=== PATIENT | male | born 1950 | race Caucasian/White ===

== ENCOUNTER 2023-06-29 14:20 | Outpatient (AMB) | payer MEDICARE, OTHER, SELFPAY ==
--- NOTE | 2023-06-29 14:33 | HO.NEPHOV ---
HPI HPI Comments History of Present Illness Details I had the privilege of seeing Mr. Enriquez in follow-up of his diabetic nephropathy. He has chronic kidney disease. He had been doing well after his CABG. His blood sugar control has been fair. His blood pressure is better controlled. His serum creatinine had been fairly stable. He is on Farxiga. His psoriasis is under good control. He exercises daily. He denies chest pain, shortness of breath, nausea vomiting, diarrhea, urinary symptoms, pedal edema or orthostatic symptoms. He has not had any medication changes lately. [facility] Medical History (Updated 07/13/23 @ 21:32 by Praneeth Whipple MD) Secondary hyperparathyroidism Vitamin D deficiency Metabolic acidosis Proteinuria Diabetes mellitus with nephropathy Essential (primary) hypertension Chronic kidney disease Surgical History (Updated 06/29/23 @ 14:46 by Joan Breen MA) Hx of CABG Family History (Updated 06/29/23 @ 14:47 by Joan Breen MA) Maternal Grandmother Heart disease Social History (Updated 06/29/23 @ 14:47 by Joan Breen MA) Alcohol intake: current Patient Tobacco Use Status: Never used Tobacco Vital Signs 06/29/23 14:48 Height 5 ft 6 in Weight 232 lb 4 oz BMI 37.5 BP 124/80 Blood Pressure Location Rt brachial Position Sitting Pulse 61 Pulse Source Pulse Oximeter Physical Exam Vital Signs: Last Vital Signs Pulse 61 06/29/23 14:48 BP 124/80 06/29/23 14:48 BMI result Body Mass Index 37.5 Const General: comfortable and no acute distress Orientation/consciousness: patient oriented x3 HEENT Head: Yes normocephalic Mouth: Normal oral and palatal mucosa present Eyes EOM: EOMs intact bilaterally Neck Neck: Yes supple Resp Auscultation: clear to auscultation bilaterally Cardio Jugular venous distension: no JVD Rate: regular rate GI Palpation (GI): Soft to palpation Auscultation: normal bowel sounds General: Yes no CVA tenderness Back/Spine/Pelvis Back: no CVA tenderness Skin General skin exam: no rashes or lesions noted Neuro General: patient oriented x3 and moves all extremities Extrem General: Yes no pedal edema Assessment & Plan Assessment & Plan (1) CKD (chronic kidney disease) stage 4, GFR 15-29 ml/min: Code(s): N18.4 - Chronic kidney disease, stage 4 (severe) (2) Metabolic acidosis: Code(s): E87.20 - Acidosis, unspecified (3) Proteinuria: Code(s): R80.9 - Proteinuria, unspecified Qualifiers: Proteinuria type: persistent Qualified Code(s): R80.1 - Persistent proteinuria, unspecified (4) Diabetes mellitus with nephropathy: Code(s): E11.21 - Type 2 diabetes mellitus with diabetic nephropathy Plan Stephan has diabetic nephropathy. His renal functions are stable. He needs to lose weight. His blood pressure is well controlled at home. He needs to keep up with a low-sodium diet. He is to continue current dose of sodium bicarbonate. He is on lisinopril as well as Farxiga. His serum potassium is normal. He needs a sleep study. He is on vitamin-D as well. He avoids nonsteroidal anti-inflammatories and maintain good hydration. I did not make any medication changes today. Follow-up lab work ordered. Answered all questions. Follow-up given. Orders: Orders Creatinine 06/29/23 N18.4 - Chronic kidney disease, stage 4 (severe), E87.20 - Acidosis, unspecified, R80.9 - Proteinuria, unspecified, E11.21 - Type 2 diabetes mellitus with diabetic nephropathy Blood Urea Nitrogen 06/29/23 N18.4 - Chronic kidney disease, stage 4 (severe), E87.20 - Acidosis, unspecified, R80.9 - Proteinuria, unspecified, E11.21 - Type 2 diabetes mellitus with diabetic nephropathy Electrolytes 06/29/23 N18.4 - Chronic kidney disease, stage 4 (severe), E87.20 - Acidosis, unspecified, R80.9 - Proteinuria, unspecified, E11.21 - Type 2 diabetes mellitus with diabetic nephropathy Phosphorus 06/29/23 N18.4 - Chronic kidney disease, stage 4 (severe), E87.20 - Acidosis, unspecified, R80.9 - Proteinuria, unspecified, E11.21 - Type 2 diabetes mellitus with diabetic nephropathy Complete Blood Count Man Dif 06/29/23 N18.4 - Chronic kidney disease, stage 4 (severe), E87.20 - Acidosis, unspecified, R80.9 - Proteinuria, unspecified, E11.21 - Type 2 diabetes mellitus with diabetic nephropathy Calcium 06/29/23 N18.4 - Chronic kidney disease, stage 4 (severe), E87.20 - Acidosis, unspecified, R80.9 - Proteinuria, unspecified, E11.21 - Type 2 diabetes mellitus with diabetic nephropathy Parathyroid Hormone Intact 06/29/23 N18.4 - Chronic kidney disease, stage 4 (severe), E87.20 - Acidosis, unspecified, R80.9 - Proteinuria, unspecified, E11.21 - Type 2 diabetes mellitus with diabetic nephropathy Vitamin D 25-OH Total 06/29/23 N18.4 - Chronic kidney disease, stage 4 (severe), E87.20 - Acidosis, unspecified, R80.9 - Proteinuria, unspecified, E11.21 - Type 2 diabetes mellitus with diabetic nephropathy Protein Creatinine Ratio, Ur 06/29/23 N18.4 - Chronic kidney disease, stage 4 (severe), E87.20 - Acidosis, unspecified, R80.9 - Proteinuria, unspecified, E11.21 - Type 2 diabetes mellitus with diabetic nephropathy Coding Level of Care Code Est Pt Level 4 (24146) Diagnoses CKD (chronic kidney disease) stage 4, GFR 15-29 ml/min N18.4 Metabolic acidosis E87.20 Persistent proteinuria R80.1 Proteinuria type: persistent Diabetes mellitus with nephropathy E11.21 Results Reviewed Nephrology Results: No Data to Display
[2023-06-29 14:48] VITALS: BP 124/80; PULSE 61; BMI 37.5
== END 2023-06-29 15:31 | disposition home or self-care (01) ==
PROVIDERS: PCP Hospitalist; Visit Provider Internal Medicine Nephrology
DX: N18.4 Chronic kidney disease, stage 4 (severe) (principal); E87.20 Acidosis, unspecified; R80.1 Persistent proteinuria, unspecified; E11.21 Type 2 diabetes mellitus with diabetic nephropathy
CPT/HCPCS: 99214

== ENCOUNTER → 2023-06-29 14:20 | Outpatient (BNVA) | payer MEDICARE, SELFPAY | PROVIDERS: PCP Hospitalist; Visit Provider Internal Medicine Nephrology | DX: E11.22 Type 2 diabetes mellitus with diabetic chronic kidney disease (principal); N18.4 Chronic kidney disease, stage 4 (severe); E11.21 Type 2 diabetes mellitus with diabetic nephropathy; E87.20 Acidosis, unspecified; R80.1 Persistent proteinuria, unspecified | CPT/HCPCS: 99212 ==

== ENCOUNTER 2023-10-13 15:39 | Outpatient (AMB) | payer MEDICARE, OTHER, SELFPAY ==
--- NOTE | 2023-10-13 15:47 | HO.NEPHOV_ITS ---
HPI HPI Comments History of Present Illness Details I had the privilege of seeing Mr. Enriquez in follow-up of his diabetic nephropathy. He has chronic kidney disease. He had been doing well after his CABG. His blood sugar control has been fair. His blood pressure is better controlled. His serum creatinine had been fairly stable. He is on Farxiga. His psoriasis is under good control. He exercises daily. He denies chest pain, shortness of breath, nausea vomiting, diarrhea, urinary symptoms, pedal edema or orthostatic symptoms. He has not had any medication changes lately. [facility] Medical History (Updated 07/13/23 @ 21:32 by Praneeth Whipple MD) Secondary hyperparathyroidism Vitamin D deficiency Metabolic acidosis Proteinuria Diabetes mellitus with nephropathy Essential (primary) hypertension Chronic kidney disease Surgical History Hx of CABG Family History Maternal Grandmother Heart disease Social History Alcohol intake: current Patient Tobacco Use Status: Never used Tobacco Vital Signs 10/13/23 15:48 Height 5 ft 6 in Weight 235 lb BMI 37.9 BP 130/70 Blood Pressure Location Lt brachial Position Sitting Pulse 59 Pulse Source Pulse Oximeter Pulse Oximetry (%) 98 Oxygen Delivery Method Room Air Physical Exam Vital Signs: Last Vital Signs Pulse 59 10/13/23 15:48 BP 130/70 10/13/23 15:48 Pulse Ox 98 10/13/23 15:48 Oxygen Delivery Method Room Air 10/13/23 15:48 BMI result Body Mass Index 37.9 Const General: comfortable and no acute distress Orientation/consciousness: patient oriented x3 HEENT Head: Yes normocephalic Mouth: Normal oral and palatal mucosa present Eyes EOM: EOMs intact bilaterally Neck Neck: Yes supple Resp Auscultation: clear to auscultation bilaterally Cardio Jugular venous distension: no JVD Rate: regular rate GI Palpation (GI): Soft to palpation Auscultation: normal bowel sounds General: Yes no CVA tenderness Back/Spine/Pelvis Back: no CVA tenderness Skin General skin exam: no rashes or lesions noted Neuro General: patient oriented x3 and moves all extremities Extrem General: Yes no pedal edema Assessment & Plan Assessment & Plan (1) CKD (chronic kidney disease) stage 4, GFR 15-29 ml/min: Code(s): N18.4 - Chronic kidney disease, stage 4 (severe) (2) Metabolic acidosis: Code(s): E87.20 - Acidosis, unspecified (3) Proteinuria: Code(s): R80.9 - Proteinuria, unspecified Qualifiers: Proteinuria type: persistent Qualified Code(s): R80.1 - Persistent proteinuria, unspecified (4) Diabetes mellitus with nephropathy: Code(s): E11.21 - Type 2 diabetes mellitus with diabetic nephropathy Plan Stephan has diabetic nephropathy. His renal functions had been stable. He needs to lose weight. His blood pressure is well controlled at home. He needs to keep up with a low-sodium diet. I increased his sodium bicarbonate to 1300 mg bid. He is on lisinopril as well as Farxiga. His serum potassium is high normal, likely from metabolic acidosis. He needs a sleep study. I started him on Vitamin D 19068 U once a week. He avoids nonsteroidal anti-inflammatories and maintain good hydration. I did not make any other medication changes today. Follow-up lab work ordered. Answered all questions. Follow-up given. Orders: Orders Blood Urea Nitrogen Today E11.21 - Type 2 diabetes mellitus with diabetic nephropathy, E87.20 - Acidosis, unspecified, N18.4 - Chronic kidney disease, stage 4 (severe), R80.9 - Proteinuria, unspecified Electrolytes Today E11.21 - Type 2 diabetes mellitus with diabetic nephropathy, E87.20 - Acidosis, unspecified, N18.4 - Chronic kidney disease, stage 4 (severe), R80.9 - Proteinuria, unspecified Calcium Today E11.21 - Type 2 diabetes mellitus with diabetic nephropathy, E87.20 - Acidosis, unspecified, N18.4 - Chronic kidney disease, stage 4 (severe), R80.9 - Proteinuria, unspecified Creatinine Today E11.21 - Type 2 diabetes mellitus with diabetic nephropathy, E87.20 - Acidosis, unspecified, N18.4 - Chronic kidney disease, stage 4 (severe), R80.9 - Proteinuria, unspecified Medications: New cholecalciferol (vitamin D3) 1,250 mcg PO QWEEK 13 caps 1RF 90 days Changed From sodium bicarbonate 1,300 mg PO BID To sodium bicarbonate 1,300 mg (2 x 650 mg) PO BID 30 days 120 tabs 12RF Coding Level of Care Code Est Pt Level 4 (63124) Diagnoses CKD (chronic kidney disease) stage 4, GFR 15-29 ml/min N18.4 Metabolic acidosis E87.20 Persistent proteinuria R80.1 Proteinuria type: persistent Diabetes mellitus with nephropathy E11.21 Results Reviewed Nephrology Results: No Data to Display
[2023-10-13 15:48] VITALS: BP 130/70; PULSE 59; O2SAT 98; BMI 37.9
== END 2023-10-13 16:31 | disposition home or self-care (01) ==
PROVIDERS: PCP Hospitalist; Visit Provider Internal Medicine Nephrology
DX: N18.4 Chronic kidney disease, stage 4 (severe) (principal); E87.20 Acidosis, unspecified; R80.1 Persistent proteinuria, unspecified; E11.21 Type 2 diabetes mellitus with diabetic nephropathy
CPT/HCPCS: 99214

== ENCOUNTER → 2023-10-13 15:39 | Outpatient (BNVA) | payer MEDICARE, OTHER, SELFPAY | PROVIDERS: PCP Hospitalist; Visit Provider Internal Medicine Nephrology | DX: E11.21 Type 2 diabetes mellitus with diabetic nephropathy (principal); E11.22 Type 2 diabetes mellitus with diabetic chronic kidney disease; I12.9 Hypertensive chronic kidney disease with stage 1 through stage 4 chronic kidney disease, or unspecified chronic kidney disease; N18.4 Chronic kidney disease, stage 4 (severe); E87.20 Acidosis, unspecified; R80.9 Proteinuria, unspecified | CPT/HCPCS: 99212 ==

== ENCOUNTER 2024-01-12 14:33 | Outpatient (AMB) | payer MEDICARE, OTHER, SELFPAY ==
--- NOTE | 2024-01-12 14:39 | HO.NEPHOV ---
Vital Signs 01/12/24 15:08 Height 5 ft 6 in BP 130/60 Blood Pressure Location Rt brachial Position Sitting Pulse 55 Pulse Source Pulse Oximeter Pulse Oximetry (%) 96 Oxygen Delivery Method Room Air Intake Visit Reasons: 3 mon follow up/ Conf Gun Number Required: No Accompanied by: Self / Same As Patient Allergies No Known Allergies Allergy (Verified 01/12/24 15:10) HPI Comments Details: I had the privilege of seeing Mr. Enriquez in follow-up of his diabetic nephropathy. He has chronic kidney disease. He had been doing well after his CABG. His blood sugar control has been fair. His blood pressure is better controlled. His serum creatinine had been fairly stable. He is on Farxiga. His psoriasis is under good control. He denies chest pain, shortness of breath, nausea vomiting, diarrhea, urinary symptoms, pedal edema or orthostatic symptoms. He has not had any medication changes lately. [facility] Medical History (Updated 07/13/23 @ 21:32 by Praneeth Whipple MD) Secondary hyperparathyroidism Vitamin D deficiency Metabolic acidosis Proteinuria Diabetes mellitus with nephropathy Essential (primary) hypertension Chronic kidney disease Surgical History Hx of CABG Family History Maternal Grandmother Heart disease Social History Alcohol intake: current Patient Tobacco Use Status: Never used Tobacco Physical Exam Vital Signs: Last Vital Signs Pulse 55 01/12/24 15:08 BP 140/74 H 01/12/24 15:08 Pulse Ox 96 01/12/24 15:08 Oxygen Delivery Method Room Air 01/12/24 15:08 Const General: comfortable and no acute distress Orientation/consciousness: patient oriented x3 HEENT Head: Yes normocephalic Mouth: Normal oral and palatal mucosa present Eyes EOM: EOMs intact bilaterally Neck Neck: Yes supple Resp Auscultation: clear to auscultation bilaterally Cardio Jugular venous distension: no JVD Rate: regular rate GI Palpation (GI): Soft to palpation Auscultation: normal bowel sounds General: Yes no CVA tenderness Back/Spine/Pelvis Back: no CVA tenderness Skin General skin exam: no rashes or lesions noted Neuro General: patient oriented x3 and moves all extremities Extrem General: Yes no pedal edema Results Reviewed Nephrology Results: No Data to Display Assessment & Plan Assessment & Plan (1) Diabetes mellitus with nephropathy: Code(s): E11.21 - Type 2 diabetes mellitus with diabetic nephropathy Category: Medical (2) Proteinuria: Code(s): R80.9 - Proteinuria, unspecified Category: Medical Qualifiers: Proteinuria type: persistent Qualified Code(s): R80.1 - Persistent proteinuria, unspecified (3) Metabolic acidosis: Code(s): E87.20 - Acidosis, unspecified Category: Medical (4) CKD (chronic kidney disease) stage 4, GFR 15-29 ml/min: Code(s): N18.4 - Chronic kidney disease, stage 4 (severe) Category: Medical Plan Stephan has diabetic nephropathy. He needs to lose weight. His blood pressure is well controlled at home. He needs to keep up with a low-sodium diet. I increased his sodium bicarbonate to 1300 mg bid. He is on lisinopril as well as Farxiga. His serum potassium is high normal, likely from metabolic acidosis. He needs a sleep study. He is on Vitamin D 50035 U once a week. He avoids nonsteroidal anti-inflammatories and maintain good hydration. I did not make any other medication changes today. Follow-up lab work ordered. Answered all questions. Follow-up given. Orders: Orders Creatinine Today E11.21 - Type 2 diabetes mellitus with diabetic nephropathy, E87.20 - Acidosis, unspecified, N18.4 - Chronic kidney disease, stage 4 (severe), R80.1 - Persistent proteinuria, unspecified Blood Urea Nitrogen Today E11.21 - Type 2 diabetes mellitus with diabetic nephropathy, E87.20 - Acidosis, unspecified, N18.4 - Chronic kidney disease, stage 4 (severe), R80.1 - Persistent proteinuria, unspecified Electrolytes Today E11.21 - Type 2 diabetes mellitus with diabetic nephropathy, E87.20 - Acidosis, unspecified, N18.4 - Chronic kidney disease, stage 4 (severe), R80.1 - Persistent proteinuria, unspecified Coding Level of Care Code Est Pt Level 4 (84215) Diagnoses Diabetes mellitus with nephropathy E11.21 Persistent proteinuria R80.1 Proteinuria type: persistent Metabolic acidosis E87.20 CKD (chronic kidney disease) stage 4, GFR 15-29 ml/min N18.4
[2024-01-12 15:08] VITALS: BP 130/60; PULSE 55; O2SAT 96
== END 2024-01-12 15:46 | disposition home or self-care (01) ==
PROVIDERS: PCP Hospitalist; Visit Provider Internal Medicine Nephrology
DX: E11.21 Type 2 diabetes mellitus with diabetic nephropathy (principal); R80.1 Persistent proteinuria, unspecified; E87.20 Acidosis, unspecified; N18.4 Chronic kidney disease, stage 4 (severe)
CPT/HCPCS: 99214

== ENCOUNTER → 2024-01-12 14:33 | Outpatient (BNVA) | payer MEDICARE, OTHER, SELFPAY | PROVIDERS: PCP Hospitalist; Visit Provider Internal Medicine Nephrology | DX: E11.21 Type 2 diabetes mellitus with diabetic nephropathy (principal); R80.1 Persistent proteinuria, unspecified; E87.20 Acidosis, unspecified; E11.22 Type 2 diabetes mellitus with diabetic chronic kidney disease; N18.4 Chronic kidney disease, stage 4 (severe); Z79.899 Other long term (current) drug therapy | CPT/HCPCS: 99212 ==

== ENCOUNTER 2024-04-07 15:06 | Outpatient (AMB) | payer MEDICARE, OTHER, SELFPAY ==
[2024-04-07 15:35] VITALS: BP 140/70; PULSE 61; O2SAT 96; BMI 37.8
--- NOTE | 2024-04-07 15:35 | HO.NEPHOV_ITS ---
Vital Signs 04/07/24 15:35 Height 5 ft 6 in Weight 234 lb 4 oz BMI 37.8 BP 140/70 H Blood Pressure Location Rt brachial Position Sitting Pulse 61 Pulse Source Pulse Oximeter Pulse Oximetry (%) 96 Oxygen Delivery Method Room Air Intake Visit Reasons: 3mon follow up- Conf Outside Food Server Required: No Accompanied by: Self / Same As Patient Allergies No Known Allergies Allergy (Verified 04/07/24 15:37) HPI Comments Details: I had the privilege of seeing Mr. Enriquez in follow-up of his diabetic nephropathy. He has chronic kidney disease. He had been doing well after his CABG. His blood sugar control has been fair. His blood pressure is better controlled. His serum creatinine had been fairly stable. He is on Farxiga. His psoriasis is under good control. He denies chest pain, shortness of breath, nausea vomiting, diarrhea, urinary symptoms, pedal edema or orthostatic symptoms. [facility] Medical History (Updated 07/13/23 @ 21:32 by Praneeth Whipple MD) Secondary hyperparathyroidism Vitamin D deficiency Metabolic acidosis Proteinuria Diabetes mellitus with nephropathy Essential (primary) hypertension Chronic kidney disease Surgical History Hx of CABG Family History Maternal Grandmother Heart disease Social History Alcohol intake: current Patient Tobacco Use Status: Never used Tobacco Review of Systems Const All systems reviewed & are unremarkable except as noted in HPI and below Physical Exam Vital Signs: Last Vital Signs Pulse 61 04/07/24 15:35 BP 140/70 H 04/07/24 15:35 Pulse Ox 96 04/07/24 15:35 Oxygen Delivery Method Room Air 04/07/24 15:35 BMI result Body Mass Index 37.8 Const General: comfortable and no acute distress Orientation/consciousness: patient oriented x3 HEENT Head: Yes normocephalic Mouth: Normal oral and palatal mucosa present Eyes EOM: EOMs intact bilaterally Neck Neck: Yes supple Resp Auscultation: clear to auscultation bilaterally Cardio Jugular venous distension: no JVD Rate: regular rate GI Palpation (GI): Soft to palpation Auscultation: normal bowel sounds General: Yes no CVA tenderness Back/Spine/Pelvis Back: no CVA tenderness Skin General skin exam: no rashes or lesions noted Neuro General: patient oriented x3 and moves all extremities Extrem General: Yes no pedal edema Results Reviewed Nephrology Results: No Data to Display Assessment & Plan Assessment & Plan (1) CKD (chronic kidney disease) stage 4, GFR 15-29 ml/min: Code(s): N18.4 - Chronic kidney disease, stage 4 (severe) Category: Medical (2) Metabolic acidosis: Code(s): E87.20 - Acidosis, unspecified Category: Medical (3) Proteinuria: Code(s): R80.9 - Proteinuria, unspecified Category: Medical Qualifiers: Proteinuria type: persistent Qualified Code(s): R80.1 - Persistent proteinuria, unspecified (4) Diabetes mellitus with nephropathy: Code(s): E11.21 - Type 2 diabetes mellitus with diabetic nephropathy Category: Medical Plan Stephan has diabetic nephropathy. He needs to lose weight. His blood pressure is well controlled at home. He needs to keep up with a low-sodium diet. I increased his sodium bicarbonate to 1300 mg bid. He is on lisinopril as well as Farxiga. His serum potassium is high normal, likely from metabolic acidosis. He needs a sleep study. He is on Vitamin D 11539 U once a week. He avoids n onsteroidal anti-inflammatories and maintain good hydration. I did not make any other medication changes today. He will benefit from PFT's given his SOBE. Follow-up lab work ordered. Answered all questions. Follow-up given. Orders: Orders Creatinine 3 Months E11.21 - Type 2 diabetes mellitus with diabetic nephropathy, E87.20 - Acidosis, unspecified, N18.4 - Chronic kidney disease, stage 4 (severe), R80.1 - Persistent proteinuria, unspecified Blood Urea Nitrogen 3 Months E11.21 - Type 2 diabetes mellitus with diabetic nephropathy, E87.20 - Acidosis, unspecified, N18.4 - Chronic kidney disease, stage 4 (severe), R80.1 - Persistent proteinuria, unspecified Electrolytes 3 Months E11.21 - Type 2 diabetes mellitus with diabetic nephropathy, E87.20 - Acidosis, unspecified, N18.4 - Chronic kidney disease, stage 4 (severe), R80.1 - Persistent proteinuria, unspecified Vitamin D 25-OH Total 3 Months E11.21 - Type 2 diabetes mellitus with diabetic nephropathy, E87.20 - Acidosis, unspecified, N18.4 - Chronic kidney disease, stage 4 (severe), R80.1 - Persistent proteinuria, unspecified Parathyroid Hormone Intact 3 Months E11.21 - Type 2 diabetes mellitus with diabetic nephropathy, E87.20 - Acidosis, unspecified, N18.4 - Chronic kidney disease, stage 4 (severe), R80.1 - Persistent proteinuria, unspecified Calcium 3 Months E11. - Type 2 diabetes mellitus with diabetic nephropathy, E87.20 - Acidosis, unspecified, N18.4 - Chronic kidney disease, stage 4 (severe), R80.1 - Persistent proteinuria, unspecified Complete Blood Count Auto Diff 3 Months E11.21 - Type 2 diabetes mellitus with diabetic nephropathy, E87.20 - Acidosis, unspecified, N18.4 - Chronic kidney disease, stage 4 (severe), R80.1 - Persistent proteinuria, unspecified Coding Level of Care Code Est Pt Level 4 (18065) Diagnoses CKD (chronic kidney disease) stage 4, GFR 15-29 ml/min N18.4 Metabolic acidosis E87.20 Persistent proteinuria R80.1 Proteinuria type: persistent Diabetes mellitus with nephropathy
== END 2024-04-07 16:02 | disposition home or self-care (01) ==
PROVIDERS: PCP Hospitalist; Visit Provider Internal Medicine Nephrology
DX: N18.4 Chronic kidney disease, stage 4 (severe) (principal); E87.20 Acidosis, unspecified; R80.1 Persistent proteinuria, unspecified; E11.21 Type 2 diabetes mellitus with diabetic nephropathy
CPT/HCPCS: 99214

== ENCOUNTER → 2024-04-07 15:06 | Outpatient (BNVA) | payer MEDICARE, OTHER, SELFPAY | PROVIDERS: PCP Hospitalist; Visit Provider Internal Medicine Nephrology | DX: E11.21 Type 2 diabetes mellitus with diabetic nephropathy (principal); N18.4 Chronic kidney disease, stage 4 (severe); E87.20 Acidosis, unspecified; R80.1 Persistent proteinuria, unspecified | CPT/HCPCS: 99212 ==

== ENCOUNTER 2024-07-07 14:17 | Outpatient (AMB) | payer MEDICARE, OTHER, SELFPAY ==
--- NOTE | 2024-07-07 14:53 | HO.NEPHOV ---
Vital Signs 07/07/24 14:56 Height 5 ft 6 in Weight 240 lb 4 oz BMI 38.8 BP 130/72 Blood Pressure Location Lt brachial Position Sitting Pulse 47 L Pulse Source Pulse Oximeter Pulse Oximetry (%) 98 Oxygen Delivery Method Room Air Intake Visit Reasons: 3 mon follow up-Conf Medication Coordinator Required: No Accompanied by: Self / Same As Patient Allergies No Known Allergies Allergy (Verified 07/07/24 14:56) HPI Comments Details: Mr. Enriquez was seen in follow-up of his diabetic nephropathy. He has chronic kidney disease. He had been doing well after his CABG. His blood sugar control has been fair. His blood pressure is better controlled. His serum creatinine had been fairly stable. He is on Farxiga. His psoriasis is under good control. He denies chest pain, shortness of breath, nausea vomiting, diarrhea, urinary symptoms, pedal edema or orthostatic symptoms. [facility] Medical History (Updated 07/07/24 @ 20:04 by Praneeth Whipple MD) Secondary hyperparathyroidism Vitamin D deficiency Metabolic acidosis Proteinuria Diabetes mellitus with nephropathy Essential (primary) hypertension Chronic kidney disease Surgical History Hx of CABG Family History Maternal Grandmother Heart disease Social History Alcohol intake: current Patient Tobacco Use Status: Never used Tobacco Review of Systems Const All systems reviewed & are unremarkable except as noted in HPI and below Physical Exam Vital Signs: Last Vital Signs Pulse 47 L 07/07/24 14:56 BP 130/72 07/07/24 14:56 Pulse Ox 98 07/07/24 14:56 Oxygen Delivery Method Room Air 07/07/24 14:56 BMI result Body Mass Index 38.8 Const General: comfortable and no acute distress Orientation/consciousness: patient oriented x3 HEENT Head: Yes normocephalic Mouth: Normal oral and palatal mucosa present Eyes EOM: EOMs intact bilaterally Neck Neck: Yes supple Resp Auscultation: clear to auscultation bilaterally Cardio Jugular venous distension: no JVD Rate: regular rate GI Palpation (GI): Soft to palpation Auscultation: normal bowel sounds General: Yes no CVA tenderness Back/Spine/Pelvis Back: no CVA tenderness Skin General skin exam: no rashes or lesions noted Neuro General: patient oriented x3 and moves all extremities Extrem General: Yes no pedal edema Results Reviewed Nephrology Results: No Data to Display Assessment & Plan Assessment & Plan (1) CKD (chronic kidney disease) stage 4, GFR 15-29 ml/min: Code(s): N18.4 - Chronic kidney disease, stage 4 (severe) Category: Medical (2) Metabolic acidosis: Code(s): E87.20 - Acidosis, unspecified Category: Medical (3) Diabetes mellitus with nephropathy: Code(s): E11.21 - Type 2 diabetes mellitus with diabetic nephropathy Category: Medical (4) Hyperkalemia: Code(s): E87.5 - Hyperkalemia Category: Medical Plan Stephan has diabetic nephropathy. He needs to lose weight. His blood pressure is well controlled at home. He needs to keep up with a low-sodium diet. I increased his sodium bicarbonate to 1300 mg tid. He is on lisinopril as well as Farxiga. His serum potassium is high , likely from metabolic acidosis. I started him on Kayexalate 30 Gram twice a week. He needs a sleep study. He is on Vitamin D 11272 U once a week. He avoids nonsteroidal anti-inflammatories and maintain good hydration. I did not make any other medication changes today. Follow-up lab work ordered. Answered all questions Orders: Orders Creatinine 1 Month N18.4 - Chronic kidney disease, stage 4 (severe) Electrolytes 2 Months N18.4 - Chronic kidney disease, stage 4 (severe) Blood Urea Nitrogen 2 Months N18.4 - Chronic kidney disease, stage 4 (severe) Creatinine 2 Months N18.4 - Chronic kidney disease, stage 4 (severe) Electrolytes 1 Month N18.4 - Chronic kidney disease, stage 4 (severe) Blood Urea Nitrogen 1 Month N18.4 - Chronic kidney disease, stage 4 (severe) Medications: New sodium polystyrene sulfonate 30 grams PO .twice a week 453.6 grams 10RF Changed From sodium bicarbonate 1,300 mg (2 x 650 mg) PO BID 30 days 120 tabs 12RF To sodium bicarbonate 1,300 mg (2 x 650 mg) PO TID 30 days 180 tabs 12RF Coding Level of Care Code Est Pt Level 4 (49768) Diagnoses CKD (chronic kidney disease) stage 4, GFR 15-29 ml/min N18.4 Metabolic acidosis E87.20 Diabetes mellitus with nephropathy E11.21 Hyperkalemia E87.5
[2024-07-07 14:56] VITALS: BP 130/72; PULSE 47; O2SAT 98; BMI 38.8
== END 2024-07-07 15:46 | disposition home or self-care (01) ==
PROVIDERS: PCP Hospitalist; Visit Provider Internal Medicine Nephrology
DX: N18.4 Chronic kidney disease, stage 4 (severe) (principal); E87.20 Acidosis, unspecified; E11.21 Type 2 diabetes mellitus with diabetic nephropathy; E87.5 Hyperkalemia
CPT/HCPCS: 99214

== ENCOUNTER → 2024-07-07 14:17 | Outpatient (BNVA) | payer MEDICARE, OTHER, SELFPAY | PROVIDERS: PCP Hospitalist; Visit Provider Internal Medicine Nephrology | DX: E11.22 Type 2 diabetes mellitus with diabetic chronic kidney disease (principal); N18.4 Chronic kidney disease, stage 4 (severe); E11.21 Type 2 diabetes mellitus with diabetic nephropathy; E87.20 Acidosis, unspecified; E87.5 Hyperkalemia | CPT/HCPCS: 99212 ==

== ENCOUNTER 2024-09-06 12:32 | Outpatient (AMB) | payer MEDICARE, OTHER, SELFPAY ==
--- NOTE | 2024-09-06 12:34 | HO.NEPHOV_ITS ---
Vital Signs 09/06/24 12:35 Height 5 ft 6 in Intake Visit Reasons: CKD/ Conf Continuous Improvement Facilitator Required: No Accompanied by: Self / Same As Patient Allergies No Known Allergies Allergy (Verified 09/06/24 12:35) HPI Comments Details: Mr. Enriquez was seen by [facility] in follow-up of his diabetic nephropathy. He has chronic kidney disease. He had been doing well after his CABG. His blood sugar control has been fair. He recently had UTI and has been taking Bactrim. He also has been having diarrhea. His blood pressure is controlled. His serum creatinine gotten worse with acidosis. He claims to be taking NaHCO3. His psoriasis is under good control. He denies chest pain, shortness of breath, nausea vomiting, diarrhea, urinary symptoms, pedal edema or orthostatic symptoms. [facility] Medical History (Updated 09/06/24 @ 13:23 by Praneeth Whipple MD) Secondary hyperparathyroidism Vitamin D deficiency Metabolic acidosis Proteinuria Diabetes mellitus with nephropathy Essential (primary) hypertension Chronic kidney disease Surgical History Hx of CABG Family History Maternal Grandmother Heart disease Social History Alcohol intake: current Patient Tobacco Use Status: Never used Tobacco Review of Systems Const All systems reviewed & are unremarkable except as noted in HPI and below Telehealth Telehealth Telehealth Platform: Telephone Location of provider rendering services: practice address Location of patient: address on file Patient Identification confirmed using: Name, : Yes Telehealth method: voice only Patient verbally consented to treatment: Yes Patient verbally consented to billing insurance company: Yes Patient informed of any privacy concerns related to visit: No Minutes spent on Phone/Video with Pt.: 10 Results Reviewed Nephrology Results: No Data to Display Assessment & Plan Assessment & Plan (1) Hyperkalemia: Code(s): E87.5 - Hyperkalemia Category: Medical (2) Acute kidney injury superimposed on stage 4 chronic kidney disease: Code(s): N17.9 - Acute kidney failure, unspecified; N18.4 - Chronic kidney disease, stage 4 (severe) Category: Medical (3) Metabolic acidosis: Code(s): E87.20 - Acidosis, unspecified Category: Medical (4) Diabetes mellitus with nephropathy: Code(s): E11.21 - Type 2 diabetes mellitus with diabetic nephropathy Category: Medical Plan Stephan has diabetic nephropathy. He needs to lose weight. His blood pressure is well controlled at home. He needs to keep up with a low-sodium diet. He should continue sodium bicarbonate 1300 mg tid. I held his Farxiga, ACEI and D/C ed his Bactrim. He should continue Kayexalate 30 Gram twice a week. He needs a sleep study. He is on Vitamin D 03655 U once a week. He avoids nonsteroidal anti-inflammatories and maintain good hydration. I did not make any other medication changes today. Follow-up lab work ordered. Answered all questions Orders: Orders Electrolytes 3 Weeks E11.21 - Type 2 diabetes mellitus with diabetic nephropathy, E87.20 - Acidosis, unspecified, E87.5 - Hyperkalemia, N17.9 - Acute kidney failure, unspecified, N18.4 - Chronic kidney disease, stage 4 (severe) Blood Urea Nitrogen 3 Weeks E11.21 - Type 2 diabetes mellitus with diabetic nephropathy, E87.20 - Acidosis, unspecified, E87.5 - Hyperkalemia, N17.9 - Acute kidney failure, unspecified, N18.4 - Chronic kidney disease, stage 4 (severe) Creatinine 3 Weeks E11.21 - Type 2 diabetes mellitus with diabetic nephropathy, E87.20 - Acidosis, unspecified, E87.5 - Hyperkalemia, N17.9 - Acute kidney failure, unspecified, N18.4 - Chronic kidney disease, stage 4 (severe) Coding Level of Care Code Tele Est Pt Level 4 (98705) Diagnoses Hyperkalemia E87.5 Acute kidney injury superimposed on stage 4 chronic kidney disease N17.9; N18.4 Metabolic acidosis E87.20 Diabetes mellitus with nephropathy E11.21
--- OUTSIDE RECORDS SUMMARY | 2024-09-06 13:36 | XMS_ITS ---
Author Organization [facility] Address [address] [place] [phone] Care Team Providers Care Associate Director Of Biostatistics Name Role Phone ADELIA THOMAS Primary Care Provider REASON FOR VISIT Ambien refill Medications Medication SIG (Take, Route, Fr equency, Duration) Notes Start Date End Date Status Zolpidem Tartrate 10 MG TAKE 1 TABLET BY MOUTH AT BEDTIME as NEEDED 28 Orally Once a day for 28 days 08/29/2024 Active Encounters Encounter Location Date Provider Diagnosis [facility] [address] [address] 08/29/2024 ADELIA THOMAS Plan Of Treatment Medication Medication Name Sig Start Date Stop Date Notes Zolpidem Tartrate 10 MG TAKE 1 TABLET BY MOUTH AT BEDTIME as NEEDED 28 Orally Once a day for 28 days 08/29/2024 Next Appt Details Provider Name:ADELIA THOMAS , 10/31/2024 02:30:00 PM, [address] [place] [address], [place], [address], Progress Notes * Wiliam BRAGAOB: 2 (74 yo M)Acc No.[id number]:08/29/2024 Patient:?MARIA LUZ Sarabjit :1950???Age:74 Y???Sex:Male Address:[address] [place] [phone] * Refills? Refill Zolpidem Tartrate Tablet, 10 MG, Orally, 28, TAKE 1 TABLET BY MOUTH AT BEDTIME as NEEDED 28, Once a day, 28 days, Refills=0 * true * Date:? Generated for Gertrude salazar/Jonathan/Kristopher on:?09/06/2024 01:36 PM EST
--- OUTSIDE RECORDS SUMMARY | 2024-09-06 13:36 | XMS_ITS | Clinical Summary ---
Author Organization [facility] Address [address] [place] [address] Care Team Providers Care Narcotics Detective Name Role Phone Jesús Holder MD Primary Care Provider [phone] Allergies No known active allergies Medications Medication Sig Dispensed Refills Start Date End Date Status amoxicillin-clavulana te (AUGMENTIN) 875-125 MG per tablet Take 1 tablet by mouth 2 (two) times a day. 20 tablet 0 02/01/2018 Active insulin glargine (LANTUS) injection 100 units/mL Inject 40 Units under the skin every night at bedtime. 0 Active atorvastatin (LIPITOR) tablet 20 mg Take 20 mg by mouth daily. 0 Active atenolol (TENORMIN) tablet 25 mg Take 25 mg by mouth daily. 0 Active glipiZIDE (GLUCOTROL XL) ER 24 hr tablet 2.5 mg Take 2.5 mg by mouth daily. 0 Active allopurinol (ZYLOPRIM) 100 MG tablet Take 100 mg by mouth daily. 0 Active zolpidem (AMBIEN) 5 MG tablet Take 10 mg by mouth every night at bedtime as needed for sleep. 0 Active lisinopril (PRINIVIL,ZESTRIL) tablet 20 mg Take 1 tablet (20 mg total) by mouth daily. 10 tablet 0 01/24/2019 Active Active Problems Problem Noted Date Diagnosed Date SOB (shortness of breath) 08/09/2015 Immunizations Name Administration Dates Next Due Covid-19 (Pfizer) Dilution Required 10/19/2020 Social History Tobacco Use Types Packs/Day Years Used Date Smoking Tobacco: Never Smokeless Tobacco: Never Alcohol Use Standard Drinks/Week Comments Yes 21 (1 standard drink = 0.6 oz pu re alcohol) Sex and Gender Information Value Date Recorded Sex Assigned at Male 07/01/2018 2:48 PM EST Gender Identity Male 08/19/2018 2:42 PM EST Sexual Orientation Not on file Last Filed Vital Signs Vital Sign Reading Time Taken Comments Blood Pressure 185/91 01/24/2019 9:06 PM EDT Pulse 63 01/24/2019 9:06 PM EDT Temperature 36.7 ??C (98.1 ??F) 01/24/2019 9:06 PM E DT Respiratory Rate 16 01/24/2019 9:06 PM EDT Oxygen Saturation 95% 01/24/2019 9:06 PM EDT Inhaled Oxygen Concentration - - Weight 97.5 kg (215 lb) 01/24/2019 7:06 PM EDT Height 167.6 cm (5' 6 ) 01/24/2019 7:06 PM EDT Body Mass Index 34.7 01/24/2019 7:06 PM EDT Plan of Treatment Health Maintenance Due Date Last Done Comments Hepatitis C Screening 1950 Depression Screening 1964 BMI Counseling 1970 Preventative Health Evaluation 1970 DTap / Tdap / Td (1 - Tdap) 1971 Colon Cancer Screening (Colonoscopy) 1997 Shingrix-Zoster Vaccine (1 of 2) 2002 Fall Risk Assessment 2017 Pneumococcal Vaccine (1 of 1 - PCV) 2017 COVID-19 Vaccine (2 - 2023-2 5 season) 2024 10/19/2020 Influenza Vaccine (#1) 2024 RSV Adult > 60+ Yrs or Pregn ant (1 - 1-dose 75+ series) 2027 Hepatitis B Vaccines Aged Out No long er eligible based on patient's age to complete this topic RSV Ped < 20 months Aged Out No longe r eligible based on patient's age to complete this topic Care Teams Narcotics Detective Relationship Specialty Start Date End Date Jesús Holder MD [address] [place] [address] PCP - General Family Medicine 08/02/15
--- OUTSIDE RECORDS SUMMARY | 2024-09-06 13:36 | XMS_ITS | Encounter Summary ---
Author Organization [facility] Address [address] [facility] [address] [place] [address] Phone Care Team Providers Care Credit Control Assistant Name Role Phone Andrez Reyes MD Primary Care Provider [phone] Encounter Details Date Type Department Care Team (Late st Contact Info) Description 10/28/2022 Telephone [facility] [address] [place] [phone] Denisse Montes [place] Social History Tobacco Use Types Packs/Day Years Used Date Smoking Tobacco: Never Smokeless Tobacco: Never Alcohol Use Standard Drinks/Week Comments Yes 0 (1 standard drink = 0.6 oz pure alcohol) Alcoholic Drinks/day: 1-2 drinks per day Sex and Gender Information Value Date Recorded Sex Assigned at Not on file Legal Sex Male 4:40 PM EST Gender Identity Not on file Sexual Orientation Not on file documented as of this encounter Miscellaneous Notes * Telephone Encounter - Denisse Montes MA - 10/28/2022 3:05 PM EDT Pt called, during his last appt he mentioned he gets the sweats and is very cold at the same time. You had advised he see a neurologist to get botox sine it was caused by his neuropathy. He would like to have a referral made for him. Please advise Thank you documented in this encounter Plan of Treatment Not on file documented as of this encounter Visit Diagnoses Not on filedocumented in this encounter Care Teams Credit Control Assistant Relationship Specialty Start Date End Date Andrez Reyes MD [address] [place] [address] PCP - General 08/06/20 documented as of this encounter
--- OUTSIDE RECORDS SUMMARY | 2024-09-06 13:36 | XMS_ITS | Encounter Summary ---
Author Organization [facility] Address [address] [place] [address] [place] [address] Phone Care Team Providers Care Training Officer Name Role Phone Andrez Reyes MD Primary Care Provider [phone] Encounter Details Date Type Department Care Team (Late st Contact Info) Description 01/23/2021 Orders Only [facility] [address] [facility] [address] [place] [address] Praneeth Whipple MD Renal disorder due to type 2 diabetes mellitus <Diabetic nephropathy> (HCC); Hypertensive renal disease; Stage 3b chronic kidney disease (HCC) Social History Tobacco Use Types Packs/Day Years [...] on file documented as of this encounter Plan of Treatment Not on file documented as of this encounter Procedures Procedure Name Priority Date/Time Associated Diagnosis Comments RENAL FUNCTION PANEL Routine 04/18/2021 9:03 AM EDT CBC Routine 01/03/2021 8:53 AM EDT Renal disorder due to type 2 diabetes mellitus <Diabetic nephropathy> (HCC) Hypertensive renal disease Stage 3b chronic kidney disease (HCC) RENAL FUNCTION PANEL Routine 01/03/2021 8:53 AM EDT Renal disorder due to type 2 diabetes mellitus <Diabetic nephropathy> (HCC) Hypertensive renal disease Stage 3b chronic kidney disease (HCC) documented in this encounter Results * (ABNORMAL) Renal Function Panel (04/18/2021 9:03 AM EDT) Glucose 119(H) (70-99) MG/DL [facility] BUN 52(H) (8-23) MG/DL [facility] Creatinine 2.8(H) (0.7-1.2) MG/DL [facility] Sodium 137 (133-145) MMOL/L [facility] Potassium 4.7 (3.6-5.2) MMOL/L [facility] Chloride 108(H) (98-107) MMOL/L [facility] Bicarbonate (CO2) 16(L) (22-29) MMOL/L [facility] Anion Gap 13 (4-17) [facility] Albumin 4.4 (3.4-4.8) GM/DL [facility] Calcium 9.2 (8.6-10.5) MG/DL [facility] Phosphorus, Serum 4.2 (2.5-4.5) MG/DL [facility] Est GFR Non 22 ML/MIN/1.7 3 M2 [facility] Comment: Effective 04/17/2021, race modifiers will no longer be included in our creatinine-based CKD-EPI eGFR calculations. Accordingly, eGFR lab report descriptors (i.e., EST GFR NON , EST GFR ) will be discontinued. Please take this into account when utilizing creatinine-based formulations to diagnose and manage chronic kidney disease. Creatinine based estimated glomerular filtration rate (eGFR) is calculated using the Chronic Kidney Disease Epidemiology Collaboration (CKD-EPI). The CKD-EPI calculation is not validated in children (<18 years), woman or in racial or ethnic subgroups. Testing performed or reported by [facility], a Service of [facility], [address] [place] [address] Jesus Kelly MD, Curriculum And Assessment Director [facility]# [id number] 04/18/2021 9:03 AM EDT 04/18/2021 9:09 AM EDT us Praneeth Whipple MD LAB BLOOD ORDERABLES Final Resul t [facility] * (ABNORMAL) Renal function panel (01/03/2021 8:53 AM EDT) Glucose 116(H) (70-99) MG/DL [facility] BUN 48(H) (8-23) MG/DL [facility] Creatinine 3.0(H) (0.7-1.2) MG/DL [facility] Sodium 140 (133-145) MMOL/L [facility] Potassium 4.8 (3.6-5.2) MMOL/L [facility] Chloride 109(H) (98-107) MMOL/L [facility] Bicarbonate (CO2) 19(L) (22-29) MMOL/L [facility] Anion Gap 12 (4-17) [facility] Albumin 4.6 (3.4-4.8) GM/DL [facility] Calcium 9.2 (8.6-10.5) MG/DL [facility] Phosphorus, Serum 4.5 (2.5-4.5) MG/DL [facility] Est GFR Non 20 ML/MIN/1.7 3 M2 [facility] Comment: Creatinine based estimated glomerular filtration rate (eGFR) is calculated using the Chronic Kidney Disease Epidemiology Collaboration (CKD-EPI). The CKD-EPI creatinine equation has not been validated in children (<18 years), women or in some racial or ethnic subgroups other than Caucasians and Americans. EST GFR 24 ML/MIN/1.7 3 M2 [facility] Comment: Creatinine based estimated glomerular filtration rate (eGFR) is calculated using the Chronic Kidney Disease Epidemiology Collaboration (CKD-EPI). The CKD-EPI creatinine equation has not been validated in children (<18 years), women or in some racial or ethnic subgroups other than Caucasians and Americans. Testing performed or reported by [facility], a Service of [facility], [address] [place] [id number] Jesus Kelly MD, Curriculum And Assessment Director Blood (Blood, Venous) 01/03/2021 8:53 AM EDT 01/03/2021 9:05 AM EDT us Praneeth Whipple MD LAB BLOOD ORDERABLES Final Resul t [facility] * (ABNORMAL) CBC (01/03/2021 8:53 AM EDT) White Blood Cells 5.4 (4.0-11.0) K/MM3 [facility] RBC 4.10(L) (4.70-6.10 ) M/MM3 [facility] Hgb 12.4(L) (13.7-17.1 ) GM/DL [facility] Hematocrit 39.0(L) (40.5-50.0 ) % [facility] MCV 95.1(H) (80.0-94.0 ) FL [facility] MCH 30.2 (27.0-34.0 ) PG [facility] MCHC 31.8(L) (33.0-37.0 ) g/dL [facility] Platelets 149(L) (150-460) K/MM3 [facility] RDW-SD 49.2(H) (<47.0) FL [facility] MPV 11.9 (9.4-12.4) FL [facility] nRBC Count 0.0 #/100 WBC'S [facility] NRBC Absolute 0.0 K/MM3 [facility] Comment: Testing performed or reported by [facility], a Service of [facility], [address] [place] [address] Jesus Kelly MD, Curriculum And Assessment Director Blood (Blood, Venous) 01/03/2021 8:53 AM EDT 01/03/2021 9:05 AM EDT us Praneeth Whipple MD LAB BLOOD ORDERABLES Final Resul t [facility] documented in this encounter Visit Diagnoses Diagnosis Renal disorder due to type 2 diabetes mellitus <Diabetic nephropathy> (HCC) Hypertensive renal disease Stage 3b chronic kidney disease (HCC) documented in this encounter Care Teams Training Officer Relationship Specialty Start Date End Date Andrez Reyes MD [address] [place] [address] PCP - General 08/06/20 documented as of this encounter
--- OUTSIDE RECORDS SUMMARY | 2024-09-06 13:36 | XMS_ITS | Encounter Summary ---
Author Organization [facility] Address [address] [facility] 200 [place] [address] Phone Care Team Providers Care Wire Coiner Name Role Phone Andrez Reyes MD Primary Care Provider [phone] Encounter Details Date Type Department Care Team ([facility] st Contact Info) Description 09/12/2020 Orders Only [facility] [address] [facility] 2 [place] [address] Provider, MD Jeremy [address] [place] [address] Social History Tobacco Use Types Packs/Day Years Used Date Smoking Tobacco: Never Alcohol Use Standard Drinks/Week Comments [...] on filedocumented in this encounter Care Teams Wire Coiner Relationship Specialty Start Date End Date Andrez Reyes MD [address] [place] [phone] PCP - General 08/06/20 documented as of this encounter
--- OUTSIDE RECORDS SUMMARY | 2024-09-06 13:36 | XMS_ITS | Clinical Summary ---
Author Organization [facility] Address 100 [facility] [address] [place] [address] Phone Care Team Providers Care Coach Tour Driver Name Role Phone Andrez Reyes MD Primary Care Provider [phone] Allergies No known active allergies Medications allopurinol (ZYLOPRIM) 100 MG tablet Take 1 tablet by mouth 1 (one) time each day Active aspirin (ST SCOTT) 81 MG EC tablet Take 1 tablet by mouth 1 (one) time each day Active atorvastatin (LIPITOR) 80 MG tablet Take 1 tablet by mouth 1 (one) time each day Active carvedilol (COREG) 25 MG tablet Take 25 mg by mouth in the morning and 25 mg in the evening. Active insulin glargine (Lantus SoloStar) 100 UNIT/ML injection Inject 8 Units under the skin 1 (one) time each day Active zolpidem (AMBIEN) 10 MG tablet Take 1 tablet by mouth at bed time Active Vascepa 1 g capsule Take 2 capsules by mouth 2 (two) times a day 1 Active ezetimibe (ZETIA) 10 MG tablet Take 1 tablet by mouth 1 (one) time each day 1 Active amLODIPine (NORVASC) 10 MG tablet Take 1 tablet by mouth 1 (one) time each day 2 Active lisinopril 2.5 MG tablet TAKE 1 TABLET BY MOUTH EVERY DAY 90 tablet 2 3 Active Lokelma 10 g pack Take 10 g by mouth per week 3 Active HumaLOG KWIKPEN 100 UNIT/ML solution pen-injector if needed 3 Active Dapagliflozin Propanediol (Farxiga) 5 MG tablet Take 5 mg by mouth 1 (one) time each day in the morning 30 tablet 3 3 Active Active Problems Problem Noted Date Diagnosed Date Diverticular disease of colon 04/22/2021 Obese class I 04/22/2021 Chronic kidney disease, stage 4 (severe) 021 Hypertension 01/04/2021 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/22/2020 Stage 3b chronic kidney disease 10/22/2020 Essential hypertension 10/22/2020 Hypertensive renal disease 10/22/2020 Renal disorder due to type 2 diabetes mellitus 0 10/22/2020 Chronic diarrhea 04/27/2019 Snoring 04/27/2019 Gout 03/09/2019 Resolved Problems Problem Noted Date Diagnosed Date Resolved Date Cardiac arrhythmia 10/22/2020 Chronic gouty arthritis 10/22/202009/25 H/O: poliomyelitis 10/22/2020 Hearing loss 10/22/2020 10/22/2020 Impotence of organic origin 10/22/2020 10/22/2020 Insomnia 10/22/2020 10/22/2020 Mixed hyperlipidemia 10/22/2020 021 Neuropathy due to diabetes mellitus 10/22/2020 10/22/2020 Tinea pedis 10/22/2020 10/22/2020 Immunizations Name Administration Dates Next Due Influenza Split High Dose Preservative Free IM 1 Influenza, Unspecified 05/04/2019 Pfizer SARS-COV-2 10/19/2020 Zoster 04/06/2013 Family History Medical History Relation Comments Dementia Father Hypertension Father Cancer Mother breast cancer Relation Status Comments Father Mother Social History Tobacco Use Types Packs/Day Years Used Date Smoking Tobacco: Never Smokeless Tobacco: Never Tobacco Cessation:Counseling Given: Not Answered Alcohol Use Standard Drinks/Week Comments Yes 0 (1 standard drink = 0.6 oz pure alcohol) Alcoholic Drinks/day: 1-2 drinks per day Sex and Gender Information Value Date Recorded Sex Assigned at Not on file Legal Sex Male 4:40 PM EST Gender Identity Not on file Sexual Orientation Not on file Last Filed Vital Signs Vital Sign Reading Time Taken Comments Blood Pressure 130/80 04/13/2023 4:07 PM EDT Pulse 57 04/13/2023 4:07 PM EDT Temperature - - Respiratory Rate - - Oxygen Saturation 98% 04/22/2021 4:01 PM EDT Inhaled Oxygen Concentration - - Weight 103 kg (228 lb) 04/13/2023 4:07 PM EDT Height 167.6 cm (5' 6 ) 12/01/2019 12:00 PM EDT Body Mass Index 36.8 12/01/2019 12:00 PM EDT Plan of Treatment Health Maintenance Due Date Last Done Comments Pneumococcal Vaccine: 65+ Years (1 of 2 - PCV) 1958 Colorectal Cancer Screening: Annual FOBT 2001 Colorectal Cancer Screening: Colonoscopy 2001 Colorectal Cancer Screening: Sigmoidoscopy 2001 Diabetes: Hemoglobin A1C 08/27/2020 Diabetes: Ophthalmology Exam 08/27/2020 Diabetes: Pedal Pulse Checked 08/27/2020 Diabetes: Sensory Foot Exam 08/27/2020 Diabetes: Visual Foot Exam 08/27/2020 Influenza Vaccine (#1) 2024 , 05/04/2019 Hepatitis B Vaccine Aged Out No longe r eligible based on patient's age to complete this topic Insurance [facility] MEDICARE [facility] MEDICARE Care Teams Coach Tour Driver Relationship Specialty Start Date End Date Andrez Reyes MD [address] [phone] PCP - General 08/06/20
--- OUTSIDE RECORDS SUMMARY | 2024-09-06 13:37 | XMS_ITS ---
Author Organization [facility] Address [address] [place] [address] [address] [place] [address] Care Team Providers Care Water Analyst Name Role Phone ROXY THOMASDELVALLE Primary Care Provider Virgil Parsons Unavailable [phone] REASON FOR VISIT Labs/refill Encounters Encounter Location Date Provider Diagnosis [facility] [address] [facility] [address] [place] [address] 05/30/2024 Virgil Parsons Plan Of Treatment Next Appt Details Provider Name:AEDLIA THOMAS , 10/31/2024 02:30:00 PM, [address] [facility] [address], [place], [address], Progress Notes * Wiliam BRAGAOB: (74 yo M)Acc No.[id number]:05/30/2024 Patient:?Sarabjit BRAGA :1950???Age:74 Y???Sex:Male Address:[address] [facility] [place] [address] * true * Date:? Generated for Printi ng/Jonathan/eTransmitting on:?09/06/2024 01:36 PM EST
--- OUTSIDE RECORDS SUMMARY | 2024-09-06 13:37 | XMS_ITS | Clinical Summary ---
Author Organization [facility] Address [address] [place] [address] Care Team Providers Care Gas Generator Operator Name Role Phone Unavailable Primary Care Provider Unavailabl e Social History Tobacco Use Types Packs/Day Years Used Date Smoking Tobacco: Never Assessed Sex and Gender Information Value Date Recorded Sex Assigned at Not on file Gender Identity Not on file Sexual Orientation Not on file Plan of Treatment Health Maintenance Due Date Last Done Comments Hepatitis C Virus Screening 1950 DTaP/Tdap/Td Vaccines (1 - Tdap) 1971 Pneumococcal Vaccines 50+ (1 of 1 - PCV) 2002 Zoster (Shingles) Vaccine (1 of 2) 2002 COVID-19 Vaccine ( - 2023-2 5 season) 2024 RSV Vaccine 60 years and old er and Patients (1 - 1-dose 75+ series) 2027 Hepatitis B Vaccines Aged Out No long er eligible based on patient's age to complete this topic
--- OUTSIDE RECORDS SUMMARY | 2024-09-06 13:37 | XMS_ITS | Clinical Summary ---
Author Organization [facility] Address [address] [place] [address] Care Team Providers Care Hot Wort Settler Name Role Phone Andrez Reyes MD Primary Care Provider [phone] Medical History Medical History Date Comments HTN (hypertension) DX:HTN (hyper tension) Hyperlipidemia DX:Hyperlipidemi a Gout DX:Gout CKD (chronic kidney disease) DX: CKD (chronic kidney disease) Insomnia 04/27/2019 DX:Insomnia Snoring 04/27/2019 DX:Snoring History of poliomyelitis 04/27/2019 DX:Hist ory of poliomyelitis; COMMENT: Right foot affected Type 2 diabetes mellitus wit h renal manifestations (CMS/HCC) 03/09/2019 DX:Type 2 diabetes mellitus with renal manifestations (HCC); COMMENT: Unable to verify without labs Chronic diarrhea 04/27/2019 DX:Chronic diar tamiko Family History Medical History Relation Name Comments No Known Problems Brother Alzheimer's disease Father Hypertension Father No Known Problems Maternal Grandfather No Known Problems Maternal Grandmother Breast cancer Mother No Known Problems Paternal Grandfather No Known Problems Paternal Grandmother No Known Problems Sister Relation Name Status Comments Brother Father Maternal Grandfather Maternal Grandmother Mother Paternal Grandfather Paternal Grandmother Sister Social History Tobacco Use Types Packs/Day Years Used Date Smoking Tobacco: Never Smokeless Tobacco: Never Alcohol Use Standard Drinks/Week Comments Yes 1 (1 standard drink = 0.6 oz pur e alcohol) Sex and Gender Information Value Date Recorded Sex Assigned at Not on file Legal Sex Male 5:14 AM EST Gender Identity Not on file Sexual Orientation Not on file Obstetrics History Plan of Treatment Health Maintenance Due Date Last Done Comments DTaP,Tdap,and Td Vaccines (1 - Tdap) 1957 Pneumococcal Vaccine: 50+ Years (1 of 1 - PCV) 2002 Zoster Vaccines (1 of 2) 2002 COVID-19 Vaccine (2 - season) 2024 10/19/2020 Influenza Vaccine (#1) 2024 2, 05/14/2021, 05/17/2020, Additional history exists RSV Immunization Patients 60+ Years Old (1 - 1-dose 75+ series) 2027 HIB Vaccines Aged Out No longer eligi ble based on patient's age to complete this topic HPV Vaccines Aged Out No longer eligi ble based on patient's age to complete this topic Hepatitis A Vaccines Aged Out No long er eligible based on patient's age to complete this topic Hepatitis B Vaccines Aged Out No long er eligible based on patient's age to complete this topic IPV Vaccines Aged Out No longer eligi ble based on patient's age to complete this topic MMR Vaccines Aged Out No longer eligi ble based on patient's age to complete this topic Meningococcal ACWY Vaccine Aged Out N o longer eligible based on patient's age to complete this topic Meningococcal B Vacine Aged Out No lo nger eligible based on patient's age to complete this topic RSV Immunization Patients Under 20 months Aged Out No longer eligible based on patient's age to complete this topic Varicella Vaccines Aged Out No longer eligible based on patient's age to complete this topic Care Teams Hot Wort Settler Relationship Specialty Start Date End Date Andrez Reyes MD [address] [place] [phone] PCP - General Internal Medicine 02/04/19
== END 2024-09-07 08:50 | disposition home or self-care (01) ==
LOC: HO.HKAS 12:32
PROVIDERS: PCP Hospitalist; Visit Provider Internal Medicine Nephrology
DX: E87.5 Hyperkalemia (principal); N17.9 Acute kidney failure, unspecified; N18.4 Chronic kidney disease, stage 4 (severe); E87.20 Acidosis, unspecified; E11.21 Type 2 diabetes mellitus with diabetic nephropathy
CPT/HCPCS: 99214

== ENCOUNTER 2024-10-11 13:53 | Outpatient (AMB) | payer MEDICARE, OTHER, SELFPAY ==
--- NOTE | 2024-10-11 13:57 | HO.NEPHOV_ITS ---
Vital Signs 10/11/24 13:58 Height 5 ft 6 in Weight 244 lb BMI 39.4 BP 154/72 H Blood Pressure Location Lt brachial Position Sitting Pulse 58 Pulse Source Pulse Oximeter Pulse Oximetry (%) 100 Oxygen Delivery Method Room Air Intake Visit Reasons: 1mon follow-up w/labs-Conf Bladder Blower Required: No Allergies No Known Allergies Allergy (Verified 10/11/24 14:01) Do you need a note to return to daycare/school/sports/work: No HPI Comments Details: Mr. Enriquez was seen in follow-up of his diabetic nephropathy. He has chronic kidney disease. He had been doing well after his CABG. His blood sugar control has been fair. He recently had UTI and has been taking Bactrim. He also has been having diarrhea. His blood pressure is controlled. He claims to be taking NaHCO3. His psoriasis is under good control. He denies chest pain, shortness of breath, nausea vomiting, diarrhea, urinary symptoms, pedal edema or orthostatic symptoms. [facility] Medical History Secondary hyperparathyroidism Vitamin D deficiency Metabolic acidosis Proteinuria Diabetes mellitus with nephropathy Essential (primary) hypertension Chronic kidney disease Surgical History Hx of CABG Family History Maternal Grandmother Heart disease Social History Alcohol intake: current Patient Tobacco Use Status: Never used Tobacco Review of Systems Const All systems reviewed & are unremarkable except as noted in HPI and below Physical Exam Vital Signs: Last Vital Signs Pulse 58 10/11/24 13:58 BP 154/72 H 10/11/24 13:58 Pulse Ox 100 10/11/24 13:58 Oxygen Delivery Method Room Air 10/11/24 13:58 BMI result Body Mass Index 39.4 Const General: comfortable and no acute distress Orientation/consciousness: patient oriented x3 HEENT Head: Yes normocephalic Mouth: Normal oral and palatal mucosa present Eyes EOM: EOMs intact bilaterally Neck Neck: Yes supple Resp Auscultation: clear to auscultation bilaterally Cardio Jugular venous distension: no JVD Rate: regular rate GI Palpation (GI): Soft to palpation Auscultation: normal bowel sounds General: Yes no CVA tenderness Back/Spine/Pelvis Back: no CVA tenderness Skin General skin exam: no rashes or lesions noted Neuro General: patient oriented x3 and moves all extremities Extrem General: Yes no pedal edema Results Reviewed Nephrology Results: No Data to Display Assessment & Plan Assessment & Plan (1) Acute kidney injury superimposed on stage 4 chronic kidney disease: Code(s): N17.9 - Acute kidney failure, unspecified; N18.4 - Chronic kidney disease, stage 4 (severe) Category: Medical (2) Hyperkalemia: Code(s): E87.5 - Hyperkalemia Category: Medical (3) Diabetes mellitus with nephropathy: Code(s): E11.21 - Type 2 diabetes mellitus with diabetic nephropathy Category: Medical (4) Proteinuria: Code(s): R80.9 - Proteinuria, unspecified Category: Medical Qualifiers: Proteinuria type: persistent Qualified Code(s): R80.1 - Persistent proteinuria, unspecified (5) Metabolic acidosis: Code(s): E87.20 - Acidosis, unspecified Category: Medical (6) CKD (chronic kidney disease) stage 4, GFR 15-29 ml/min: Code(s): N18.4 - Chronic kidney disease, stage 4 (severe) Category: Medical Plan Stephan has diabetic nephropathy. He needs to lose weight. His blood pressure is well controlled at home. He needs to keep up with a low-sodium diet. He should continue sodium bicarbonate 1300 mg tid. I have held his Farxiga, ACEI at the last visit. He should continue Kayexalate 30 Gram twice a week. He needs a sleep study. He is on Vitamin D 12608 U once a week. He avoids nonsteroidal anti- inflammatories and maintain good hydration. I did not make any other medication changes today. Follow-up lab work ordered. Answered all questions Orders: Orders Ferritin 10 Weeks E11.21 - Type 2 diabetes mellitus with diabetic nephropathy, E87.20 - Acidosis, unspecified, E87.5 - Hyperkalemia, N17.9 - Acute kidney failure, unspecified, N18.4 - Chronic kidney disease, stage 4 (severe), R80.1 - Persistent proteinuria, unspecified Vitamin D 25-OH Total 10 Weeks E11.21 - Type 2 diabetes mellitus with diabetic nephropathy, E87.20 - Acidosis, unspecified, E87.5 - Hyperkalemia, N17.9 - Acute kidney failure, unspecified, N18.4 - Chronic kidney disease, stage 4 (severe), R80.1 - Persistent proteinuria, unspecified Phosphorus 10 Weeks E11. - Type 2 diabetes mellitus with diabetic nephropathy, E87.20 - Acidosis, unspecified, E87.5 - Hyperkalemia, N17.9 - Acute kidney failure, unspecified, N18.4 - Chronic kidney disease, stage 4 (severe), R80.1 - Persistent proteinuria, unspecified Creatinine 10 Weeks E11. - Type 2 diabetes mellitus with diabetic nephropathy, E87.20 - Acidosis, unspecified, E87.5 - Hyperkalemia, N17.9 - Acute kidney failure, unspecified, N18.4 - Chronic kidney disease, stage 4 (severe), R80.1 - Persistent proteinuria, unspecified Blood Urea Nitrogen 10 Weeks . - Type 2 diabetes mellitus with diabetic nephropathy, E87.20 - Acidosis, unspecified, E87.5 - Hyperkalemia, N17.9 - Acute kidney failure, unspecified, N18.4 - Chronic kidney disease, stage 4 (severe), R80.1 - Persistent proteinuria, unspecified Electrolytes 10 Weeks . - Type 2 diabetes mellitus with diabetic nephropathy, E87.20 - Acidosis, unspecified, E87.5 - Hyperkalemia, N17.9 - Acute kidney failure, unspecified, N18.4 - Chronic kidney disease, stage 4 (severe), R80.1 - Persistent proteinuria, unspecified Calcium 10 Weeks E11. - Type 2 diabetes mellitus with diabetic nephropathy, E87.20 - Acidosis, unspecified, E87.5 - Hyperkalemia, N17.9 - Acute kidney failure, unspecified, N18.4 - Chronic kidney disease, stage 4 (severe), R80.1 - Persistent proteinuria, unspecified Complete Blood Count Auto Diff 10 Weeks . - Type 2 diabetes mellitus with diabetic nephropathy, E87.20 - Acidosis, unspecified, E87.5 - Hyperkalemia, N17.9 - Acute kidney failure, unspecified, N18.4 - Chronic kidney disease, stage 4 (severe), R80.1 - Persistent proteinuria, unspecified IRON PROFILE 10 Weeks E11.21 - Type 2 diabetes mellitus with diabetic nephropathy, E87.20 - Acidosis, unspecified, E87.5 - Hyperkalemia, N17.9 - Acute kidney failure, unspecified, N18.4 - Chronic kidney disease, stage 4 (severe), R80.1 - Persistent proteinuria, unspecified Parathyroid Hormone Intact 10 Weeks E11.21 - Type 2 diabetes mellitus with diabetic nephropathy, E87.20 - Acidosis, unspecified, E87.5 - Hyperkalemia, N17.9 - Acute kidney failure, unspecified, N18.4 - Chronic kidney disease, stage 4 (severe), R80.1 - Persistent proteinuria, unspecified Coding Level of Care Code Est Pt Level 4 (89891) Diagnoses Acute kidney injury superimposed on stage 4 chronic kidney disease N17.9; N18.4 Hyperkalemia E87.5 Diabetes mellitus with nephropathy E11. Persistent proteinuria R80.1 Proteinuria type: persistent Metabolic acidosis E87.20 CKD (chronic kidney disease) stage 4, GFR 15-29 ml/min N18.4
[2024-10-11 13:58] VITALS: BP 154/72; PULSE 58; O2SAT 100; BMI 39.4
--- OUTSIDE RECORDS SUMMARY | 2024-10-11 16:28 | XMS_ITS | Encounter Summary ---
Author Organization [facility] Address [address] [facility] [[email or web address]] [address] [place] [address] Phone Care Team Providers Care Health Care Manager Name Role Phone Andrez Reyes MD Primary Care Provider [phone] Encounter Details Date Type Department Care Team ([facility] st Contact Info) Description 09/12/2020 Orders Only [facility] [address] [facility] [place] [address] Provider, MD Jeremy [address] [place] [id number] Social History Tobacco Use Types Packs/Day [...] on filedocumented in this encounter Care Teams Health Care Manager Relationship Specialty Start Date End Date Andrez Reyes MD [address] [place] [phone] PCP - General 08/06/20 documented as of this encounter
--- OUTSIDE RECORDS SUMMARY | 2024-10-11 16:29 | XMS_ITS ---
Author Organization [facility] Address [address] [place] [address] Care Team Providers Care Rotating Field Assembler Name Role Phone ADELIA THOMAS Primary Care Provider REASON FOR VISIT Ambien refill Medications Medication SIG (Take, Route, Fr equency, Duration) Notes Start Date End Date Status Zolpidem Tartrate 10 MG TAKE 1 TABLET BY MOUTH AT BEDTIME as NEEDED 28 Orally Once a day for 28 days 08/29/2024 Active Encounters Encounter Location Date Provider Diagnosis [facility] [address] [address] 08/29/2024 ADELIA THOMAS Plan Of Treatment Medication Medication Name Sig Start Date Stop Date Notes Zolpidem Tartrate 10 MG TAKE 1 TABLET BY MOUTH AT BEDTIME as NEEDED 28 Orally Once a day for 28 days 08/29/2024 Next Appt Details Provider Name:Anaya walker, 10/31/2024 02:00:00 PM, [address] [place] [address], [place], [address], Progress Notes * Wiliam BRAGAOB: 2 (74 yo M)Acc No.[id number]:08/29/2024 Patient:?MARIA LUZ Sarabjit :1950???Age:74 Y???Sex:Male Address:[address] [place] [address] * Refills? Refill Zolpidem Tartrate Tablet, 10 MG, Orally, 28, TAKE 1 TABLET BY MOUTH AT BEDTIME as NEEDED 28, Once a day, 28 days, Refills=0 * true * Date:? Generated for Gertrude salazar/Jonathan/Kristopher on:?10/11/2024 04:29 PM EDT
--- OUTSIDE RECORDS SUMMARY | 2024-10-11 16:29 | XMS_ITS | Clinical Summary ---
Author Organization [facility] Address [address] [place] [id number] Care Team Providers Care Shactor Name Role Phone Unavailable Primary Care Provider [...]
--- OUTSIDE RECORDS SUMMARY | 2024-10-11 16:29 | XMS_ITS | Encounter Summary ---
Author Organization [facility] Address [address] [place] [address] [place] [address] Phone Care Team Providers Care Cylinder Loader Name Role Phone Andrez Reyes MD Primary Care Provider [phone] Encounter Details Date Type Department Care Team (Late st Contact Info) Description 01/23/2021 Orders Only [facility] [address] [facility] [address] [place] [address] Praneeth Whipple MD Renal disorder [...] 9:03 AM EDT) Glucose 119(H) (70-99) MG/DL [facility] BUN 52(H) (8-23) MG/DL [facility] Creatinine 2.8(H) (0.7-1.2) MG/DL [facility] Sodium 137 (133-145) MMOL/L [facility] Potassium 4.7 (3.6-5.2) MMOL/L [facility] Chloride 108(H) (98-107) MMOL/L [facility] Bicarbonate (CO2) 16(L) (22-29) MMOL/L [facility] Anion Gap 13 (4-17) [facility] Albumin 4.4 (3.4-4.8) GM/DL [facility] Calcium 9.2 (8.6-10.5) MG/DL [facility] Phosphorus, Serum 4.2 (2.5-4.5) MG/DL [facility] Est GFR Non 22 ML/MIN/1.7 3 M2 [facility] Comment: Effective 04/17/2021, race modifiers will no [...] ethnic subgroups. Testing performed or reported by [facility], a Service of [facility], [address] [place] [id number] Jesus Kelly MD, Bootmaker [facility]# [id number] 04/18/2021 9:03 AM EDT 04/18/2021 9:09 AM EDT us Praneeth Whipple MD LAB BLOOD ORDERABLES Final Resul t [facility] * (ABNORMAL) Renal function panel (01/03/2021 8:53 AM EDT) Glucose 116(H) (70-99) MG/DL [facility] BUN 48(H) (8-23) MG/DL [facility] Creatinine 3.0(H) (0.7-1.2) MG/DL [facility] Sodium 140 (133-145) MMOL/L [facility] Potassium 4.8 (3.6-5.2) MMOL/L [facility] Chloride 109(H) (98-107) MMOL/L [facility] Bicarbonate (CO2) 19(L) (22-29) MMOL/L [facility] Anion Gap 12 (4-17) [facility] Albumin 4.6 (3.4-4.8) GM/DL [facility] Calcium 9.2 (8.6-10.5) MG/DL [facility] Phosphorus, Serum 4.5 (2.5-4.5) MG/DL [facility] Est GFR Non 20 ML/MIN/1.7 3 M2 [facility] Comment: Creatinine based estimated glomerular filtration rate (eGFR) is calculated using the Chronic Kidney Disease Epidemiology Collaboration (CKD-EPI). The CKD-EPI creatinine equation has not been validated in children (<18 years), women or in some racial or ethnic subgroups other than Caucasians and Americans. EST GFR 24 ML/MIN/1.7 3 M2 [facility] Comment: Creatinine based estimated glomerular filtration rate (eGFR) is calculated using the Chronic Kidney Disease Epidemiology Collaboration (CKD-EPI). The CKD-EPI creatinine equation has not been validated in children (<18 years), women or in some racial or ethnic subgroups other than Caucasians and Americans. Testing performed or reported by [facility], a Service of [facility], [address] [place] [id number] Jesus Kelly MD, Bootmaker Blood (Blood, Venous) 01/03/2021 8:53 AM EDT 01/03/2021 9:05 AM EDT us Praneeth Whipple MD LAB BLOOD ORDERABLES Final Resul t [facility] * (ABNORMAL) CBC (01/03/2021 8:53 AM EDT) White Blood Cells 5.4 (4.0-11.0) K/MM3 [facility] RBC 4.10(L) (4.70-6.10 ) M/MM3 [facility] Hgb 12.4(L) (13.7-17.1 ) GM/DL [facility] Hematocrit 39.0(L) (40.5-50.0 ) % [facility] MCV 95.1(H) (80.0-94.0 ) FL [facility] MCH 30.2 (27.0-34.0 ) PG [facility] MCHC 31.8(L) (33.0-37.0 ) g/dL [facility] Platelets 149(L) (150-460) K/MM3 [facility] RDW-SD 49.2(H) (<47.0) FL [facility] MPV 11.9 (9.4-12.4) FL [facility] nRBC Count 0.0 #/100 WBC'S [facility] NRBC Absolute 0.0 K/MM3 [facility] Comment: Testing performed or reported by [facility], a Service of [facility], [address] [place] [id number] Jesus Kelly MD, Bootmaker Blood (Blood, Venous) 01/03/2021 8:53 AM EDT 01/03/2021 9:05 AM EDT us Praneeth Whipple MD LAB BLOOD ORDERABLES Final Resul t [facility] documented in this encounter Visit Diagnoses Diagnosis Renal disorder due to type 2 diabetes mellitus <Diabetic nephropathy> (HCC) Hypertensive renal disease Stage 3b chronic kidney disease (HCC) documented in this encounter Care Teams Cylinder Loader Relationship Specialty Start Date End Date Andrez Reyes MD [address] [place] [phone] PCP - General 08/06/20 documented as of this encounter
--- OUTSIDE RECORDS SUMMARY | 2024-10-11 16:29 | XMS_ITS | Encounter Summary ---
Author Organization [facility] Address [address] [facility] [address] [place] [address] Phone Care Team Providers Care Space Scheduler Name Role Phone Andrez Reyes MD Primary Care Provider [phone] Encounter Details Date Type Department Care Team (Late st Contact Info) Description 10/28/2022 Telephone [facility] [address] [facility] [address] [place] [phone] Denisse Montes [place] Social History Tobacco Use [...] on filedocumented in this encounter Care Teams Space Scheduler Relationship Specialty Start Date End Date Andrez Reyes MD [address] [place] [address] PCP - General 08/06/20 documented as of this encounter
--- OUTSIDE RECORDS SUMMARY | 2024-10-11 16:29 | XMS_ITS ---
Author Organization [facility] Address [address] [place] [address] Care Team Providers Care Assistant Portfolio Manager Name Role Phone ADELIA THOMAS Primary Care Provider Anaya Rincon Unavailable [phone] Allergies No Known Allergies REASON FOR VISIT ear lavage Medications Medication SIG (Take, Route, Frequency, Duration) Notes Start Date End Date Status Dexcom G6 Transmitter - USE DIRECTED for 90 Active Gemfibrozil 600 MG 1 tablet 30 minutes before morning and evening meals Orally Twice a day for 30 days triglycerides are really high and he is at risk for pancreatitis. We will monitor his liver functions and repeat his lipid panel in 6 to 12 weeks after taking the medication 12/30/2022 Not-Taking Sodium Bicarbonate 650 MG as directed Orally 04/09/2022 Active Allopurinol 100 MG TAKE 1 TABLET BY MOUTH EVERY DAY DIRECTED for 90 Active HumaLOG KwikPen 100 UNIT/ML SLIDING SCALE MAX 20 UNITS THREE TIMES A DAY SUBCUTANEOUSLY for 25 Active Blood Glucose Test - as directed to check blood sugars with Accucheck machine Dx: E11.8 In Vitro three times daily for 90 Active Vitamin D Active Lokelma 10 GM 1 packet dissolved in water Orally Once a day for 30 day(s) 04/09/2022 Not-Taking BD Pen Needle Short U/F 31G X 8 MM as directed once a day for 30 days 07/19/2019 Active Ozempic (0.25 or 0.5 MG/DOSE) 2 MG/1.5ML 0.25 mg Subcutaneous once a week for 30 days 01/18/2024 Not-Taking Aspirin Low Dose 81 MG TAKE 1 TABLET BY MOUTH EVERY DAY for 90 Active Lisinopril 2.5 MG 1 tablet Orally Once a day Not-Taking Zolpidem Tartrate 10 MG TAKE 1 TABLET BY MOUTH AT BEDTIME as NEEDED 28 Orally Once a day for 28 days 08/30/2024 Active Farxiga 5 MG 1 tablet Orally Once a day Not-Taking amLODIPine Besylate 10 MG TAKE 1 TABLET BY MOUTH EVERY DAY for 90 Active amLODIPine Besylate 5 MG TAKE 1 TABLET BY MOUTH EVERY DAY FOR 90 DAYS for 90 Not-Taking Carvedilol 25 MG TAKE 1 TABLET BY MOUTH TWICE A DAY for 90 Active Albuterol Sulfate HFA 108 (90 Base) MCG/ACT 1 puff as needed Inhalation every 4 hrs for 30 days 09/20/2024 Active Lantus SoloStar 100 UNIT/ML INJECT 10 UNITS UNDER THE SKIN DAILY for 90 days Active Accu-Chek Guide - Check blood sugars three times a day for 90 days Active Ezetimibe 10 MG TAKE 1 TABLET BY MOUTH EVERY DAY for 90 Active Dexcom G6 Sensor - USE DIRECTED Dx: E08.40 for 30 days Patient is paying out of pocket, please dispense. Active Icosapent Ethyl 1 GM TAKE 2 CAPSULES BY MOUTH TWICE A DAY WITH MEALS for 30 Active predniSONE 20 MG 1 tablet Orally Once a day for 7 days 09/20/2024 Active Atorvastatin Calcium 80 MG TAKE 1 TABLET BY MOUTH EVERY DAY for 90 Active Vital Signs Temperature 97.1 degrees Fahrenheit 09/20/19 Oximetry 94 % 09/20/2024 Heart Rate 60 /min 09/20/2024 Blood pressure systolic 140 mm Hg 09/20/19 Blood pressure diastolic 90 mm Hg 025 Weight 244.2 lbs 09/20/2024 BMI 39.41 kg/m2 09/20/2024 Height 66 in 09/20/2024 Encounters Encounter Location Date Provider Diagnosis [facility] [address] [place] [address] 09/20/2024 Ghadeer Mazloum Cough R05.9 ; Impact ed cerumen of left ear H61.22 ; Type 2 diabetes mellitus with other diabetic arthropathy, 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 Swanson, gout, diabetic neuropathy, history of coronary disease hyperlipidemia hypertension is here for a Follow-up. Plan as follow ear lavage Left ear impacted cerumen - Ear Lavage were from the office today. Recommended using Debrox Cough - He states that he had a viral infection last week and ever since he has been coughing he has used Robitussin [id number]-[id number] which improved his cough significantly. Physical exam examination is remarkable for bilateral wheezing at the lung base. I have started patient on prednisone and albuterol as needed. Advised that if symptoms worsen Or if he develops fever then we can consider further evaluation. Hypertension CKD stage IV Micro-proteinuria - He follows with Dr. Whipple. He is not in volume overload. Lisinopril and Farxiga have been discontinued recently. He had hyperkalemia. He is currently only on amlodipine 10 mg. Blood pressure is running high normal. He has an appointment coming up with Dr. Whipple for blood pressure follow-up. Type II diabetes mellitus with neuropathy. -Recent A1c of 5.8 previously 6.7. I have advised patient to discontinue Lantus given his sugars are controlled, he mentions that he prefers to take Lantus as needed along with Humalog. Continue with diet modification. He has seen his relay assembler in the past 1 year. Foot care discussed. All questions were answered plan was discussed with the patient I have rendered the services for this patient under direct supervision of Dr. Thomas, who did not see the patient but was available upon request 09/20/2024 Impacted cerumen of left ear (ICD-10 - H61.22) 74-year-old gentleman with history of chronic kidney disease stage IV followed by Dr. Swanson, gout, diabetic neuropathy, history of coronary disease hyperlipidemia hypertension is here for a Follow-up. Plan as follow ear lavage Left ear impacted cerumen - Ear Lavage were from the office today. Recommended using Debrox Cough - He states that he had a viral infection last week and ever since he has been coughing he has used Robitussin [id number] which improved his cough significantly. Physical exam examination is remarkable for bilateral wheezing at the lung base. I have started patient on prednisone and albuterol as needed. Advised that if symptoms worsen Or if he develops fever then we can consider further evaluation. Hypertension CKD stage IV Micro-proteinuria - He follows with Dr. Whipple. He is not in volume overload. Lisinopril and Farxiga have been discontinued recently. He had hyperkalemia. He is currently only on amlodipine 10 mg. Blood pressure is running high normal. He has an appointment coming up with Dr. Whipple for blood pressure follow-up. Type II diabetes mellitus with neuropathy. -Recent A1c of 5.8 previously 6.7. I have advised patient to discontinue Lantus given his sugars are controlled, he mentions that he prefers to take Lantus as needed along with Humalog. Continue with diet modification. He has seen his relay assembler in the past 1 year. Foot care discussed. All questions were answered plan was discussed with the patient I have rendered the services for this patient under direct supervision of Dr. Thomas, who did not see the patient but was available upon request 09/20/2024 Type 2 diabetes mellitus with other diabetic arthropathy, without long-term current use of insulin (ICD-10 - E11.618) 74-year-old gentleman with history of chronic kidney disease stage IV followed by Dr. Swanson, gout, diabetic neuropathy, history of coronary disease hyperlipidemia hypertension is here for a Follow-up. Plan as follow ear lavage Left ear impacted cerumen - Ear Lavage were from the office today. Recommended using Debrox Cough - He states that he had a viral infection last week and ever since he has been coughing he has used Robitussin [id number] which improved his cough significantly. Physical exam examination is remarkable for bilateral wheezing at the lung base. I have started patient on prednisone and albuterol as needed. Advised that if symptoms worsen Or if he develops fever then we can consider further evaluation. Hypertension CKD stage IV Micro-proteinuria - He follows with Dr. Whipple. He is not in volume overload. Lisinopril and Farxiga have been discontinued recently. He had hyperkalemia. He is currently only on amlodipine 10 mg. Blood pressure is running high normal. He has an appointment coming up with Dr. Whipple for blood pressure follow-up. Type II diabetes mellitus with neuropathy. -Recent A1c of 5.8 previously 6.7. I have advised patient to discontinue Lantus given his sugars are controlled, he mentions that he prefers to take Lantus as needed along with Humalog. Continue with diet modification. He has seen his relay assembler in the past 1 year. Foot care discussed. All questions were answered plan was discussed with the patient I have rendered the services for this patient under direct supervision of Dr. Thomas, who did not see the patient but was available upon request 09/20/2024 Chronic kidney disease, stage 4 (severe) (ICD-10 - N18.4) 74-year-old gentleman with history of chronic kidney disease stage IV followed by Dr. Swanson, gout, diabetic neuropathy, history of coronary disease hyperlipidemia hypertension is here for a Follow-up. Plan as follow ear lavage Left ear impacted cerumen - Ear Lavage were from the office today. Recommended using Debrox Cough - He states that he had a viral infection last week and ever since he has been coughing he has used Robitussin [id number]-[id number] which improved his cough significantly. Physical exam examination is remarkable for bilateral wheezing at the lung base. I have started patient on prednisone and albuterol as needed. Advised that if symptoms worsen Or if he develops fever then we can consider further evaluation. Hypertension CKD stage IV Micro-proteinuria - He follows with Dr. Whipple. He is not in volume overload. Lisinopril and Farxiga have been discontinued recently. He had hyperkalemia. He is currently only on amlodipine 10 mg. Blood pressure is running high normal. He has an appointment coming up with Dr. Whipple for blood pressure follow-up. Type II diabetes mellitus with neuropathy. -Recent A1c of 5.8 previously 6.7. I have advised patient to discontinue Lantus given his sugars are controlled, he mentions that he prefers to take Lantus as needed along with Humalog. Continue with diet modification. He has seen his relay assembler in the past 1 year. Foot care discussed. All questions were answered plan was discussed with the patient I have rendered the services for this patient under direct supervision of Dr. Thomas, who did not see the patient but was available upon request 09/20/2024 Mixed hyperlipidemia (ICD-10 - E78.2) 74-year-old gentleman with history of chronic kidney disease stage IV followed by Dr. Swanson, gout, diabetic neuropathy, history of coronary disease hyperlipidemia hypertension is here for a Follow-up. Plan as follow ear lavage Left ear impacted cerumen - Ear Lavage were from the office today. Recommended using Debrox Cough - He states that he had a viral infection last week and ever since he has been coughing he has used Robitussin sjyx-htx-[id number] which improved his cough significantly. Physical exam examination is remarkable for bilateral wheezing at the lung base. I have started patient on prednisone and albuterol as needed. Advised that if symptoms worsen Or if he develops fever then we can consider further evaluation. Hypertension CKD stage IV Micro-proteinuria - He follows with Dr. Whipple. He is not in volume overload. Lisinopril and Farxiga have been discontinued recently. He had hyperkalemia. He is currently only on amlodipine 10 mg. Blood pressure is running high normal. He has an appointment coming up with Dr. Whipple for blood pressure follow-up. Type II diabetes mellitus with neuropathy. -Recent A1c of 5.8 previously 6.7. I have advised patient to discontinue Lantus given his sugars are controlled, he mentions that he prefers to take Lantus as needed along with Humalog. Continue with diet modification. He has seen his relay assembler in the past 1 year. Foot care discussed. All questions were answered plan was discussed with the patient I have rendered the services for this patient under direct supervision of Dr. Thomas, who did not see the patient but was available upon request 09/20/2024 Essential (primary) hypertension (ICD-10 - I10) 74-year-old gentleman with history of chronic kidney disease stage IV followed by Dr. Swanson, gout, diabetic neuropathy, history of coronary disease hyperlipidemia hypertension is here for a Follow-up. Plan as follow ear lavage Left ear impacted cerumen - Ear Lavage were from the office today. Recommended using Debrox Cough - He states that he had a viral infection last week and ever since he has been coughing he has used Robitussin [id number]-rrw-xcuczek which improved his cough significantly. Physical exam examination is remarkable for bilateral wheezing at the lung base. I have started patient on prednisone and albuterol as needed. Advised that if symptoms worsen Or if he develops fever then we can consider further evaluation. Hypertension CKD stage IV Micro-proteinuria - He follows with Dr. Whipple. He is not in volume overload. Lisinopril and Farxiga have been discontinued recently. He had hyperkalemia. He is currently only on amlodipine 10 mg. Blood pressure is running high normal. He has an appointment coming up with Dr. Whipple for blood pressure follow-up. Type II diabetes mellitus with neuropathy. -Recent A1c of 5.8 previously 6.7. I have advised patient to discontinue Lantus given his sugars are controlled, he mentions that he prefers to take Lantus as needed along with Humalog. Continue with diet modification. He has seen his relay assembler in the past 1 year. Foot care discussed. All questions were answered plan was discussed with the patient I have rendered the services for this patient under direct supervision of Dr. Thomas, who did not see the patient but was available upon request Plan Of Treatment Medication Medication Name Sig Start Date Stop Date Notes Albuterol Sulfate HFA 108 (9 0 Base) MCG/ACT 1 puff as needed Inhalation every 4 hrs for 30 days 09/20/2024 predniSONE 20 MG 1 tablet Orally Once a day for 7 days 09/20/2024 Next Appt Details Follow Up: next appt, Reason : Provider Name:Anaya walker, 10/31/2024 02:00:00 PM, [address] [place] [address], [phone], Progress Notes * Wiliam BRAGAOB: 2 (74 yo M)Acc No.[id number]:09/20/2024 Patient:?Sarabjit BRAGA Provider:?Anaya Rincon :1950???Age:74 Y???Sex:Male Eddie e:09/20/2024 Address:[address] [place], [place] [id number] Pcp:ADELIA THOMAS Subjective: * Chief Complaints: * ???Ear lavage * HPI: ???Internal Medicine:?Mr. Braga is a 74-year-old gentleman with CAD previous AK, hypertension, hyperlipidemia and DM2 is here today for his ear lavage. He admits to decreased hearing BL. He states that he will also be checking his ear aids to be adjusted. He takes his sugars at home but denies any hyper or hypoglycemic events, mentions that usually fasting blood glucose of 120.? Recent A1c of 5.8.? He follows up with Dr. Whipple phone representative, lisinopril and Farxiga have been discontinued as hhpérez has been experiencing hyperkalemia.? He has an appointment with Dr. Whipple, for blood pressure follow-up. He does not appear anxious or depressed. He takes Ambien as needed. He sleeps well, appetite is good. No symptoms. He denies any other active issues or concerns. * ROS:?General/Constitutional:?Overall health?Good.?Change in appetite?denies.?Chills?denies.?Fever?denies.?Night sweats?denies.?Sleep disturbance?denies.?Weight gain?denies.?Weight loss?denies.?Neurologic:?Difficulty speaking?denies.?Dizziness?denies.?Gait abnormality?denies.?Headache?denies.?Loss of strength?denies.?Memory loss?denies.?Seizures?denies.?Tingling/Numbness?denies .?Ophthalmologic:?Blurred vision?denies.?Discharge?denies.?Dry eye?denies.?Red eye?denies.?ENT:?Change in Voice?Denies.?Cold Symptoms?Denies.?Cough?Denies.?Dizziness?Denies.?Nasal Congestion?Denies.?Otalgia?Denies.?postnasal drip?Denies.?Blocked ear?denies.?Nosebleed?denies.?Snoring?denies.?Cardiovascular:?Diaphoresis?Denies.?Pedal Edema?Denies.?PND (Paroxsymal nocturnal dyspnea)?Denies.?Chest pain?denies.?Difficulty laying flat?denies.?Dyspnea on exertion?denies.?Heart murmur?denies.?Orthopnea?denies.?Respiratory:?Snoring?denies.?Asthma?denies.?Cough?admits, dry cough.?Shortness of breath with exertion?denies.?Sputum production?denies.?Wheezing?denies.?Gastrointestinal:?Change in bowel habits?denies.?Constipation?denies.?Decreased appetite?denies.?Diarrhea?denies.?Heartburn?denies.?Nausea?denies.?Vomiting?randal es.?Musculoskeletal:?tingling/numbness?Denies.?myalgias?Denies.?Joint Swelling?Denies.?extremeties?normal.?Arthritis?denies.?Back problems?denies.?Carpal tunnel?denies.?Joint stiffness?denies.?Muscle aches?denies.?Endocrine:?Bowel Changes?Denies.?Breast Discharge?Denies.?poor libido?Denies.?Cold intolerance?denies.?Excessive sweating?denies.?Excessive thirst?denies.?Frequent urination?denies.?Thyroid problems?denies.?Skin:?Bruising?Denies.?Eczema?denies.?Hair changes?denies.?Rash?denies.?Skin lesion(s)?denies.?Psychiatric:?Anxiety?denies.?Depressed mood?denies.?Difficulty sleeping?denies.?Nervous breakdown?denies.?Substance abuse?denies.?Urology:?abnormal menstrual bleeding?denies.?blood in urine?denies.?burning on urination?denies.?difficulty urinating?denies.?discharge?denies.?dysuria?denies.? * Medical History:? * Medications:?TakingVitamin D BD Pen Needle Short U/F 31G X 8 MM Miscellaneous as directed once a day Blood Glucose Test - Strip as directed to check blood sugars with Accucheck machine Dx: E11.8 In Vitro three times daily Sodium Bicarbonate 650 MG Tablet as directed Orally Dexcom G6 Transmitter - Miscellaneous USE DIRECTED HumaLOG KwikPen 100 UNIT/ML Solution Pen-injector SLIDING SCALE MAX 20 UNITS THREE TIMES A DAY SUBCUTANEOUSLY Allopurinol 100 MG Tablet TAKE 1 TABLET BY MOUTH EVERY DAY DIRECTED Atorvastatin Calcium 80 MG Tablet TAKE 1 TABLET BY MOUTH EVERY DAY Dexcom G6 Sensor - Miscellaneous USE DIRECTED Dx: E08.40 , Notes to Pharmacist: Patient is paying out of pocket, please dispense.Icosapent Ethyl 1 GM Capsule TAKE 2 CAPSULES BY MOUTH TWICE A DAY WITH MEALS Ezetimibe 10 MG Tablet TAKE 1 TABLET BY MOUTH EVERY DAY Accu-Chek Guide - Strip Check blood sugars three times a day Carvedilol 25 MG Tablet TAKE 1 TABLET BY MOUTH TWICE A DAY Lantus SoloStar 100 UNIT/ML Solution Pen-injector INJECT 10 UNITS UNDER THE SKIN DAILY Aspirin Low Dose 81 MG Tablet Delayed Release TAKE 1 TABLET BY MOUTH EVERY DAY amLODIPine Besylate 10 MG Tablet TAKE 1 TABLET BY MOUTH EVERY DAY Zolpidem Tartrate 10 MG Tablet TAKE 1 TABLET BY MOUTH AT BEDTIME as NEEDED 28 Orally Once a day Taking Vitamin D Taking BD Pen Needle Short U/F 31G X 8 MM Miscellaneous as directed once a day Taking Blood Glucose Test - Strip as directed to check blood sugars with Accucheck machine Dx: E11.8 In Vitro three times daily Taking Sodium Bicarbonate 650 MG Tablet as directed Orally Taking Dexcom G6 Transmitter - Miscellaneous USE DIRECTED Taking HumaLOG KwikPen 100 UNIT/ML Solution Pen-injector SLIDING SCALE MAX 20 UNITS THREE TIMES A DAY SUBCUTANEOUSLY Taking Allopurinol 100 MG Tablet TAKE 1 TABLET BY MOUTH EVERY DAY DIRECTED Taking Atorvastatin Calcium 80 MG Tablet TAKE 1 TABLET BY MOUTH EVERY DAY Taking Dexcom G6 Sensor - Miscellaneous USE DIRECTED Dx: E08.40 , Notes to Pharmacist: Patient is paying out of pocket, please dispense.Taking Icosapent Ethyl 1 GM Capsule TAKE 2 CAPSULES BY MOUTH TWICE A DAY WITH MEALS Taking Ezetimibe 10 MG Tablet TAKE 1 TABLET BY MOUTH EVERY DAY Taking Accu-Chek Guide - Strip Check blood sugars three times a day Taking Carvedilol 25 MG Tablet TAKE 1 TABLET BY MOUTH TWICE A DAY Taking Lantus SoloStar 100 UNIT/ML Solution Pen-injector INJECT 10 UNITS UNDER THE SKIN DAILY Taking Aspirin Low Dose 81 MG Tablet Delayed Release TAKE 1 TABLET BY MOUTH EVERY DAY Taking amLODIPine Besylate 10 MG Tablet TAKE 1 TABLET BY MOUTH EVERY DAY Taking Zolpidem Tartrate 10 MG Tablet TAKE 1 TABLET BY MOUTH AT BEDTIME as NEEDED 28 Orally Once a day Not-TakingGemfibrozil 600 MG Tablet 1 tablet 30 minutes before morning and evening meals Orally Twice a day , Notes to Pharmacist: triglycerides are really high and he is at risk for pancreatitis. We will monitor his liver functions and repeat his lipid panel in 6 to 12 weeks after taking the medicationamLODIPine Besylate 5 MG Tablet TAKE 1 TABLET BY MOUTH EVERY DAY FOR 90 DAYS Farxiga 5 MG Tablet 1 tablet Orally Once a day Lisinopril 2.5 MG Tablet 1 tablet Orally Once a day Ozempic (0.25 or 0.5 MG/DOSE) 2 MG/1.5ML Solution Pen-injector 0.25 mg Subcutaneous once a week Lokelma 10 GM Packet 1 packet dissolved in water Orally Once a day Medication List reviewed and reconciled with the patientNot-Taking Gemfibrozil 600 MG Tablet 1 tablet 30 minutes before morning and evening meals Orally Twice a day , Notes to Pharmacist: triglycerides are really high and he is at risk for pancreatitis. We will monitor his liver functions and repeat his lipid panel in 6 to 12 weeks after taking the medicationNot-Taking amLODIPine Besylate 5 MG Tablet TAKE 1 TABLET BY MOUTH EVERY DAY FOR 90 DAYS Not-Taking Farxiga 5 MG Tablet 1 tablet Orally Once a day Not-Taking Lisinopril 2.5 MG Tablet 1 tablet Orally Once a day Not- Taking Ozempic (0.25 or 0.5 MG/DOSE) 2 MG/1.5ML Solution Pen-injector 0.25 mg Subcutaneous once a week Not-Taking Lokelma 10 GM Packet 1 packet dissolved in water Orally Once a day Medication List reviewed and reconciled with the patient * Allergies:?N.K.D.A.no[Allerg ies Verified] Objective: * Vitals:?Temp:97.1F, Oxygen s at %:94%, HR:60/min, BP: 140/82 mm Hg,140/90mm Hg, Wt:244.2lbs, BMI:39.41Index, Ht: 66 in. * ???Past Orders: Lab:Hemoglobin A1c * Collection Date 06/07/2024 04/04/2024 Collection Time 12:10 PM 12:23 PM Order Date 05/16/2024 12/17/2023 Hemoglobin A1c 5.9?H (Ref Range: %Hb) 6.7?H (Ref Range: %Hb) Estimated Average Glucose 123 (Ref Range: mg/dL) 146 (Ref Range: mg/dL) * Examination: ???General Examination: ?Psychiatry?Normal.?GENERAL APPEARANCE:?Well developed, well nourished, in no acute distress.?MUSCULOSKELETAL:?Normal.?HEAD:?Normocephalic, atraumatic.?EYES:?Pupils equal, round, reactive to light and accommodation, sclera non-icteric.?EARS:?Normal.?ORAL CAVITY:?Normal.?THROAT:?Clear.?OROPHARYNX?Normal.?SINUSES?Normal.?NECK/THYROID:?Neck supple, full range of motion, no cervical lymphadenopathy.?SKIN:?Warm and dry, no suspicious lesions.?HEART:?, S1, S2 normal, regular rate and rhythm.?LUNGS:?clear to auscultation bilaterally, good air movement.?BREASTS:?__.?ABDOMEN:?Soft, nontender, nondistended, bowel sounds present, normal.?EXTREMITIES:?Normal.?PERIPHERAL PULSES:?Normal.?NEUROLOGIC:?Nonfocal,? 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 .? Assessment: * Assessment: 1.?Impacted cerumen of left ear - H61.22 (Primary)???2.?Cough - R05.9???3.?Type 2 diabetes mellitus with other diabetic arthropathy, without long-term current use of insulin - E11.618???4.?Chronic kidney disease, stage 4 (severe) - N18.4???5.?Mixed hyperlipidemia - E78.2???6.?Essential (primary) hypertension - I10??? 74-year-old gentleman with h istory of chronic kidney disease stage IV followed by Dr. Swanson, gout, diabetic neuropathy, history of coronary disease hyperlipidemia hypertension is here for a Follow-up. Plan as follow ear lavage Left ear impacted cerumen - Ear Lavage were from the office today. Recommended using Debrox Cough - He states that he had a viral infection last week and ever since he has been coughing he has used Robitussin lwwv-[id number]-qavgzia which improved his cough significantly. Physical exam examination is remarkable for bilateral wheezing at the lung base. I have started patient on prednisone and albuterol as needed. Advised that if symptoms worsen Or if he develops fever then we can consider further evaluation. Hypertension CKD stage IV Micro-proteinuria - He follows with Dr. Whipple. He is not in volume overload. Lisinopril and Farxiga have been discontinued recently. He had hyperkalemia. He is currently only on amlodipine 10 mg. Blood pressure is running high normal. He has an appointment coming up with Dr. Whipple for blood pressure follow-up. Type II diabetes mellitus with neuropathy. -Recent A1c of 5.8 previously 6.7. I have advised patient to discontinue Lantus given his sugars are controlled, he mentions that he prefers to take Lantus as needed along with Humalog. Continue with diet modification. He has seen his relay assembler in the past 1 year. Foot care discussed. All questions were answered plan was discussed with the patient I have rendered the services for this patient under direct supervision of Dr. Thomas, who did not see the patient but was available upon request Plan: * Treatment: * Procedure Codes:? * Follow Up:?next appt * * Sign off status: Completed true * Provider:?Anaya Rincon Date:?09/20/19 Generated for Gertrude salazar/Jonathan/eTransmitting on:?10/11/2024 04:29 PM EDT History and Physical Notes * HPI (History of Present Illness) Category Sub-Category Detail Notes Category Not es Internal Medicine Mr. Bre little is a 74-year-old gentleman with CAD previous AK, hypertension, hyperlipidemia and DM2 is here today for his ear lavage. He admits to decreased hearing BL. He states that he will also be checking his ear aids to be adjusted. He takes his sugars at home but denies any hyper or hypoglycemic events, mentions that usually fasting blood glucose of 120. Recent A1c of 5.8. He follows up with Dr. Whipple phone representative, lisinopril and Farxiga have been discontinued as hhe has been experiencing hyperkalemia. He has an appointment with Dr. Whipple, for blood pressure follow-up. He does not appear anxious or depressed. He takes Ambien as needed. He sleeps well, appetite is good. No symptoms. He denies any other active issues or concerns. Examination Category Sub-Category Detail Notes Category Not es General Examination GENERAL APPEARANCE: Well dev eloped, well nourished, in no acute distress HEAD: Normocephalic, atrau matic EYES: Pupils equal, round, reactive to light and accommodation, sclera non-icteric EARS: Normal THROAT: Clear NECK/THYROID: Neck supple, full ra nge of motion, no cervical lymphadenopathy HEART: , S1, S2 normal, reg ular rate and rhythm LUNGS: clear to auscultatio n bilaterally, good air movement ABDOMEN: Soft, nontender, non distended, bowel sounds present, normal NEUROLOGIC: Nonfocal, appropriat e motor strength normal upper and lower extremities, sensory exam intact SKIN: Warm and dry, no duran picious lesions EXTREMITIES: Normal PERIPHERAL PULSES: Normal BREASTS: __ MUSCULOSKELETAL: Normal MALE GENITOURINARY: no hernia, no hydroc dilan, no penile lesions or discharge, no testicular mass, prostate normal FEMALE GENITOURINARY: __ ORAL CAVITY: Normal PODIATRIC: Normal Psychiatry Normal OROPHARYNX Normal SINUSES Normal Truck Despatcher
--- OUTSIDE RECORDS SUMMARY | 2024-10-11 16:29 | XMS_ITS | Clinical Summary ---
Author Organization [facility] Address [address] [place] [address] Care Team Providers Care Stitcher Standard Machine Name Role Phone Jesús Holder MD Primary Care Provider [phone] Allergies No known active allergies Medications Medication [...] age to complete this topic Care Teams Stitcher Standard Machine Relationship Specialty Start Date End Date Jesús Holder MD [address] [place] [address] PCP - General Family Medicine 08/02/15
--- OUTSIDE RECORDS SUMMARY | 2024-10-11 16:29 | XMS_ITS ---
Author Organization [facility] Address [address] [place] [address] Care Team Providers Care Casing Man Name Role Phone GERSONKenny DELVALLE Primary Care Provider [phone] REASON FOR VISIT *Accucheck refills/A1C result Medications Medication SIG (Take, Route, Fr equency, Duration) Notes Start Date End Date Status Accu-Chek Guide - Check blood sugars t hree times a day for 90 days Active Encounters Encounter Location Date Provider Diagnosis [facility] [address] [address] 06/29/2024 ADELIA THOMAS Plan Of Treatment Medication Medication Name Sig Start Date Stop Date Notes Accu-Chek Guide - Check blood sugars t hree times a day for 90 days Next Appt Details Provider Name:Anaya walker, 10/31/2024 02:00:00 PM, [address] [place] [address], [place], [address], Progress Notes * iWliam BRAGAOB: 2 (74 yo M)Acc No.[id number]:06/29/2024 Patient:?Sarabjit BRAGA :1950???Age:74 Y???Sex:Male Address:[address] [place] [address] * Refills? Refill Accu-Chek Guide Strip, -, 90, Check blood sugars three times a day, 90 days, Refills=11 * true * Date:? Generated for Printi ng/Faxing/eTransmitting on:?10/11/2024 04:28 PM EDT
--- OUTSIDE RECORDS SUMMARY | 2024-10-11 16:29 | XMS_ITS | Clinical Summary ---
Author Organization [facility] Address [address] [facility] [address] [place] [address] Phone Care Team Providers Care Cement Truck Loader Name Role Phone Andrez Reyes MD Primary Care Provider [phone] Allergies No known active allergies Medications allopurinol [...] patient's age to complete this topic Insurance [facility] MEDICARE [facility] MEDICARE Care Teams Cement Truck Loader Relationship Specialty Start Date End Date Andrez Reyes MD [address] [place] [id number] PCP - General 08/06/20
--- OUTSIDE RECORDS SUMMARY | 2024-10-11 16:29 | XMS_ITS | Clinical Summary ---
Author Organization [facility] Address [address] [place] [address] Care Team Providers Care Building Services Supervisor Name Role Phone Andrez Reyes MD Primary Care Provider [phone] Medical History Medical History Date Comments HTN [...] Comments DTaP,Tdap,and Td Vaccines (1 - Tdap) 1971 Pneumococcal Vaccine: 50+ Years (1 of 1 [...] age to complete this topic Care Teams Building Services Supervisor Relationship Specialty Start Date End Date Andrez Reyes MD [address] [place] [phone] PCP - General Internal Medicine 02/04/19
== END 2024-10-11 14:42 | disposition home or self-care (01) ==
LOC: HO.HKAS 13:53
PROVIDERS: PCP Hospitalist; Visit Provider Internal Medicine Nephrology
DX: N17.9 Acute kidney failure, unspecified (principal); N18.4 Chronic kidney disease, stage 4 (severe); E87.5 Hyperkalemia; E11.21 Type 2 diabetes mellitus with diabetic nephropathy; R80.1 Persistent proteinuria, unspecified; E87.20 Acidosis, unspecified
CPT/HCPCS: 99214

== ENCOUNTER → 2024-10-11 13:53 | Outpatient (BNVA) | payer MEDICARE, OTHER, SELFPAY | PROVIDERS: PCP Hospitalist; Visit Provider Internal Medicine Nephrology | DX: E11.22 Type 2 diabetes mellitus with diabetic chronic kidney disease (principal); N18.4 Chronic kidney disease, stage 4 (severe); E11.21 Type 2 diabetes mellitus with diabetic nephropathy; N17.9 Acute kidney failure, unspecified; E87.5 Hyperkalemia; E87.20 Acidosis, unspecified; R80.1 Persistent proteinuria, unspecified | CPT/HCPCS: 99212 ==

== ENCOUNTER 2025-01-12 14:50 | Outpatient (AMB) | payer MEDICARE, OTHER, SELFPAY ==
--- NOTE | 2025-01-12 15:33 | HO.NEPHOV ---
Vital Signs 01/12/25 15:34 Height 5 ft 6 in Weight 252 lb BMI 40.7 BP 140/82 H Blood Pressure Location Lt brachial Position Sitting Pulse 61 Pulse Source Pulse Oximeter Pulse Oximetry (%) 96 Oxygen Delivery Method Room Air Intake Visit Reasons: 3 mnts-Conf Tableau Report Developer Required: No Accompanied by: Self / Same As Patient Allergies No Known Allergies Allergy (Verified 01/12/25 15:33) HPI Comments Details: Mr. Enriquez was seen in follow-up of his diabetic nephropathy. He has chronic kidney disease. He had been doing well after his CABG but has SOBE. His blood sugar control has been fair. He has been having intermittent diarrhea. His blood pressure is controlled. He claims to be taking NaHCO3. He has edema. His psoriasis is under good control. He denies chest pain, nausea vomiting, diarrhea, urinary symptoms or orthostatic symptoms. [facility] Medical History Secondary hyperparathyroidism Vitamin D deficiency Metabolic acidosis Proteinuria Diabetes mellitus with nephropathy Essential (primary) hypertension Chronic kidney disease Surgical History Hx of CABG Family History Maternal Grandmother Heart disease Social History Alcohol intake: current Patient Tobacco Use Status: Never used Tobacco Review of Systems Const All systems reviewed & are unremarkable except as noted in HPI and below Physical Exam Vital Signs: Last Vital Signs Pulse 61 01/12/25 15:34 BP 140/82 H 01/12/25 15:34 Pulse Ox 96 01/12/25 15:34 Oxygen Delivery Method Room Air 01/12/25 15:34 BMI result Body Mass Index 40.7 Const General: comfortable and no acute distress Orientation/consciousness: patient oriented x3 HEENT Head: Yes normocephalic Mouth: Normal oral and palatal mucosa present Eyes EOM: EOMs intact bilaterally Neck Neck: Yes supple Resp Auscultation: clear to auscultation bilaterally Cardio Jugular venous distension: no JVD Rate: regular rate GI Palpation (GI): Soft to palpation Auscultation: normal bowel sounds General: Yes no CVA tenderness Back/Spine/Pelvis Back: no CVA tenderness Skin General skin exam: no rashes or lesions noted Neuro General: patient oriented x3 and moves all extremities Extrem General: Yes edema Assessment & Plan Assessment & Plan (1) Metabolic acidosis: Code(s): E87.20 - Acidosis, unspecified Category: Medical (2) CKD (chronic kidney disease) stage 4, GFR 15-29 ml/min: Code(s): N18.4 - Chronic kidney disease, stage 4 (severe) Category: Medical Plan Stephan has diabetic nephropathy. He needs to lose weight. His blood pressure is not well controlled. I started him on Imdur 30 mg daily. I also started him on lasix 40 mg everuy other day. He needs to keep up with a low-sodium diet. He should continue sodium bicarbonate 1300 mg tid. I have held his [place]son ACEI at the last visit. He should continue Kayexalate 30 Gram twice a week but wants to try Lokelma which I prescribed. He needs a sleep study. He is on Vitamin D 77757 U once a week. He avoids nonsteroidal anti-inflammatories and maintain good hydration. I did not make any other medication changes today. Follow-up lab work ordered. Answered all questions Orders: Orders Electrolytes Today E87.20 - Acidosis, unspecified, N18.4 - Chronic kidney disease, stage 4 (severe) Creatinine 1 Month E87.20 - Acidosis, unspecified, N18.4 - Chronic kidney disease, stage 4 (severe) Blood Urea Nitrogen 1 Month E87.20 - Acidosis, unspecified, N18.4 - Chronic kidney disease, stage 4 (severe) Electrolytes 1 Month E87.20 - Acidosis, unspecified, N18.4 - Chronic kidney disease, stage 4 (severe) Blood Urea Nitrogen Today E87.20 - Acidosis, unspecified, N18.4 - Chronic kidney disease, stage 4 (severe) Creatinine Today E87.20 - Acidosis, unspecified, N18.4 - Chronic kidney disease, stage 4 (severe) Medications: New isosorbide mononitrate ER 30 mg PO DAILY 30 tabs 3RF sodium zirconium cyclosilicate (Lokelma) 10 grams PO .three times a week 30 ea 3RF furosemide (Lasix) 40 mg PO Q OTHER DAY 20 tabs 3RF Coding Level of Care Code Est Pt Level 4 (36126) Diagnoses Metabolic acidosis E87.20 CKD (chronic kidney disease) stage 4, GFR 15-29 ml/min N18.4
[2025-01-12 15:34] VITALS: BP 140/82; PULSE 61; O2SAT 96; BMI 40.7
--- OUTSIDE RECORDS SUMMARY | 2025-01-12 16:06 | XMS_ITS | Encounter Summary ---
Author Organization [facility] Address [address] [facility] [address] [place] [address] Phone Care Team Providers Care Manager Strategic Name Role Phone Andrez Reyes MD Primary Care Provider [phone] Encounter Details Date Type Department Care Team ([facility] st Contact Info) Description 09/12/2020 Orders Only [facility] [address] [facility] 2 [place] [address] Provider, MD Jeremy Social History Tobacco Use Types Packs/Day Years [...] on filedocumented in this encounter Care Teams Manager Strategic Relationship Specialty Start Date End Date Andrez Reyes MD [address] [place] [address] PCP - General 08/06/20 documented as of this encounter
== END 2025-01-12 16:16 | disposition home or self-care (01) ==
PROVIDERS: PCP Hospitalist; Visit Provider Internal Medicine Nephrology
DX: E87.20 Acidosis, unspecified (principal); N18.4 Chronic kidney disease, stage 4 (severe)
CPT/HCPCS: 99214

== ENCOUNTER 2025-01-12 14:50 | Outpatient (REF) | payer MEDICARE, OTHER, SELFPAY ==
[2025-01-12 17:53] LABS: Anion Gap 14 (12-20); Blood Urea Nitrogen 39 mg/dL (9-16); Carbon Dioxide 20 mmol/L (22-29); Chloride 111 mmol/L (96-108); Estimated Glomerular Filt Rate 16; Potassium 4.8 mmol/L (3.3-5.1); Sodium 140 mmol/L (135-145)
== END 2025-01-12 14:51 | disposition home or self-care (01) ==
LOC: HO.HKASLDS 14:50
PROVIDERS: PCP Hospitalist; Visit Provider Internal Medicine Nephrology
DX: E11.21 Type 2 diabetes mellitus with diabetic nephropathy (principal); N18.4 Chronic kidney disease, stage 4 (severe); E87.20 Acidosis, unspecified; R60.0 Localized edema; Z79.899 Other long term (current) drug therapy
CPT/HCPCS: 36415; 80051; 82565; 84520; 99212

== ENCOUNTER 2025-02-09 13:49 | Outpatient (AMB) | payer MEDICARE, OTHER, SELFPAY ==
--- NOTE | 2025-02-09 14:14 | HO.NEPHOV ---
Vital Signs 02/09/25 14:25 Height 5 ft 6 in Weight 239 lb BMI 38.6 BP 170/96 H Blood Pressure Location Lt brachial Position Sitting Pulse 63 Pulse Source Pulse Oximeter Pulse Oximetry (%) 96 Oxygen Delivery Method Room Air Intake Visit Reasons: 1mon follow-up w/labs-Conf Butting Saw Operator Required: No Accompanied by: Self / Same As Patient Allergies No Known Allergies Allergy (Verified 02/09/25 14:25) HPI Comments Details: Mr. Enriquez was seen in follow-up of his diabetic nephropathy. He has chronic kidney disease 4. He had been doing well after his CABG . His blood sugar control has been fair. His blood pressure is controlled. He claims to be taking NaHCO3. He has edema. His psoriasis is under good control. He denies chest pain, nausea vomiting, diarrhea, urinary symptoms or orthostatic symptoms. He has not taken his medications today. [facility] Medical History Secondary hyperparathyroidism Vitamin D deficiency Metabolic acidosis Proteinuria Diabetes mellitus with nephropathy Essential (primary) hypertension Chronic kidney disease Surgical History Hx of CABG Family History Maternal Grandmother Heart disease Social History Alcohol intake: current Patient Tobacco Use Status: Never used Tobacco Review of Systems Const All systems reviewed & are unremarkable except as noted in HPI and below Physical Exam Vital Signs: Last Vital Signs Pulse 63 02/09/25 14:25 BP 170/96 H 02/09/25 14:25 Pulse Ox 96 02/09/25 14:25 Oxygen Delivery Method Room Air 02/09/25 14:25 BMI result Body Mass Index 38.6 Const General: comfortable and no acute distress Orientation/consciousness: patient oriented x3 HEENT Head: Yes normocephalic Mouth: Normal oral and palatal mucosa present Eyes EOM: EOMs intact bilaterally Neck Neck: Yes supple Resp Auscultation: clear to auscultation bilaterally Cardio Jugular venous distension: no JVD Rate: regular rate GI Palpation (GI): Soft to palpation Auscultation: normal bowel sounds General: Yes no CVA tenderness Back/Spine/Pelvis Back: no CVA tenderness Skin General skin exam: no rashes or lesions noted Neuro General: patient oriented x3 and moves all extremities Extrem General: Yes no pedal edema Results Reviewed Nephrology Results: Sodium, (135-145) 140 mmol/L 01/12/25 Potassium, (3.3-5.1) 4.8 mmol/L 01/12/25 Chloride, (96-108) 111 mmol/L H 01/12/25 Carbon Dioxide, (22-29) 20 mmol/L L 01/12/25 BUN, (9-16) 39 mg/dL H 01/12/25 Creatinine, (0.5-1.4) 3.72 mg/dL H 01/12/25 Assessment & Plan Assessment & Plan (1) Diabetes mellitus with nephropathy: Code(s): E11.21 - Type 2 diabetes mellitus with diabetic nephropathy Category: Medical (2) CKD (chronic kidney disease) stage 4, GFR 15-29 ml/min: Code(s): N18.4 - Chronic kidney disease, stage 4 (severe) Category: Medical (3) Proteinuria: Code(s): R80.9 - Proteinuria, unspecified Category: Medical Qualifiers: Proteinuria type: persistent Qualified Code(s): R80.1 - Persistent proteinuria, unspecified (4) Metabolic acidosis: Code(s): E87.20 - Acidosis, unspecified Category: Medical Plan Stephan has diabetic nephropathy. He needs to lose weight. His blood pressure is not well controlled. I reduced his lasix to 40 mg every other day. He needs to keep up with a low-sodium diet. He should continue sodium bicarbonate 1300 mg tid. I have held his Farxiga, ACEI at one of the recent visits. He should continue Kayexalate 30 Gram twice a week. He needs a sleep study. He is on Vitamin D 51953 U once a month. He avoids nonsteroidal anti-inflammatories and maintain good hydration. I did not make any other medication changes today. Follow-up lab work ordered. Answered all questions Orders: Orders Complete Blood Count Auto Diff 6 Weeks E11.21 - Type 2 diabetes mellitus with diabetic nephropathy, E87.20 - Acidosis, unspecified, N18.4 - Chronic kidney disease, stage 4 (severe), R80.1 - Persistent proteinuria, unspecified Electrolytes 6 Weeks E11.21 - Type 2 diabetes mellitus with diabetic nephropathy, E87.20 - Acidosis, unspecified, N18.4 - Chronic kidney disease, stage 4 (severe), R80.1 - Persistent proteinuria, unspecified Blood Urea Nitrogen 6 Weeks E11.21 - Type 2 diabetes mellitus with diabetic nephropathy, E87.20 - Acidosis, unspecified, N18.4 - Chronic kidney disease, stage 4 (severe), R80.1 - Persistent proteinuria, unspecified Creatinine 6 Weeks E11.21 - Type 2 diabetes mellitus with diabetic nephropathy, E87.20 - Acidosis, unspecified, N18.4 - Chronic kidney disease, stage 4 (severe), R80.1 - Persistent proteinuria, unspecified Calcium 6 Weeks E11.21 - Type 2 diabetes mellitus with diabetic nephropathy, E87.20 - Acidosis, unspecified, N18.4 - Chronic kidney disease, stage 4 (severe), R80.1 - Persistent proteinuria, unspecified Hemoglobin A1c 6 Weeks E11.21 - Type 2 diabetes mellitus with diabetic nephropathy, E87.20 - Acidosis, unspecified, N18.4 - Chronic kidney disease, stage 4 (severe), R80.1 - Persistent proteinuria, unspecified Coding Level of Care Code Est Pt Level 4 (98297) Diagnoses Diabetes mellitus with nephropathy E11. CKD (chronic kidney disease) stage 4, GFR 15-29 ml/min N18.4 Persistent proteinuria R80.1 Proteinuria type: persistent Metabolic acidosis E87.20
[2025-02-09 14:25] VITALS: BP 170/96; PULSE 63; O2SAT 96; BMI 38.6
--- OUTSIDE RECORDS SUMMARY | 2025-02-09 14:31 | XMS_ITS | Encounter Summary ---
Author Organization [facility] Address [address] [facility] [address] [place] [address] Phone Care Team Providers Care Solar Energy Systems Designer Name Role Phone Andrez Reyes MD Primary Care Provider [phone] Encounter Details Date Type Department Care Team ([facility] st Contact Info) Description 09/12/2020 Orders Only [facility] 85 [facility] 2 [place] [address] Provider, MD Jeremy Social History [...] on filedocumented in this encounter Care Teams Solar Energy Systems Designer Relationship Specialty Start Date End Date Andrez Reyes MD [address] [place] [address] PCP - General 08/06/20 documented as of this encounter
--- OUTSIDE RECORDS SUMMARY | 2025-02-09 14:32 | XMS_ITS | Clinical Summary ---
Author Organization [facility] Address [address] [place] [address] Care Team Providers Care Link Fabric Machine Operator Name Role Phone Unavailable Primary Care Provider Unavailabl e Social History Tobacco Use Types Packs/Day Years Used Date Smoking Tobacco: Never Assessed Sex and Gender Information Value Date Recorded Sex Assigned at Not on file Legal Sex Male 2:36 PM EDT Gender Identity Not on file Sexual Orientation [...]
--- OUTSIDE RECORDS SUMMARY | 2025-02-09 14:32 | XMS_ITS | Patient Health Record ---
Author Organization [facility] Address [address] [place] [address] Care Team Providers Care Director Of Cardiology Service Line Name Role Phone GERSONADELIA Cox Primary Care Provider [phone] Chacedenise Virgil Unavailable [phone] Sergey Anaya Unavailable [phone] Allergies No Known Allergies Results Component Value Reference Range Notes Hemoglobin A1c Reviewed date:06/14/2024 09:37:15 AM Interpretation: Performing Lab:[facility], [address] [place] [address], Phone - [phone], Director - [facility] Notes/Report: Hemoglobin A1c 5.9 Reference Range: [place] [employer] (ADA) Guidelines: <5.7: Decreased risk for diabetes 5.7 - 6.4: Increased risk for diabetes >6.4: Ongoing Hyperglycemia of any cause <7.0: Glycemic control for adults with diabetes Estimated Average Glucose 123 Reason For Referral No Information Medications Medication SIG (Take, Route, Frequency, Duration) Notes Start Date End Date Status Farxiga 5 MG 1 tablet Orally Once a day Not-Taking Aspirin Low Dose 81 MG TAKE 1 TABLET BY MOUTH EVERY DAY; Duration: 90 Active amLODIPine Besylate 10 MG TAKE 1 TABLET BY MOUTH EVERY DAY; Duration: 90 Active Lantus SoloStar 100 UNIT/ML INJECT 10 UNITS UNDER THE SKIN DAILY; Duration: 90 days Active amLODIPine Besylate 5 MG TAKE 1 TABLET BY MOUTH EVERY DAY FOR 90 DAYS; Duration: 90 Not-Taking Accu-Chek Guide - Check blood sugars three times a day; Duration: 90 days Active Carvedilol 25 MG TAKE 1 TABLET BY MOUTH TWICE A DAY; Duration: 90 Active Icosapent Ethyl 1 GM TAKE 2 CAPSULES BY MOUTH TWICE A DAY WITH MEALS; Duration: 30 Active Ezetimibe 10 MG TAKE 1 TABLET BY MOUTH EVERY DAY; Duration: 90 Active Dexcom G6 Sensor - USE DIRECTED Dx: E08.40; Duration: 30 days Patient is paying out of pocket, please dispense. Active Albuterol Sulfate HFA 108 (90 Base) MCG/ACT 1 puff Inhalation every 4 hrs; Duration: 30 days 09/20/2024 Active Allopurinol 100 MG 1 tablet Orally Once a day; Duration: 90 days Active Sildenafil Citrate 20 MG 1 tablet Orally Once a day; Duration: 30 days As needed 01/04/2025 Active predniSONE 20 MG 1 tablet Orally Once a day; Duration: 7 days 09/20/2024 Active HumaLOG KwikPen 100 UNIT/ML SLIDING SCALE MAX 20 UNITS THREE TIMES A DAY SUBCUTANEOUSLY; Duration: 25 Active Ozempic (0.25 or 0.5 MG/DOSE) 2 MG/1.5ML 0.25 mg Subcutaneous once a week; Duration: 30 days 01/18/2024 Not-Taking Lokelma 10 GM 1 packet dissolved in water Orally Once a day; Duration: 30 day(s) 04/09/2022 Not-Taking Gemfibrozil 600 MG 1 tablet 30 minutes before morning and evening meals Orally Twice a day; Duration: 30 days triglycerides are really high and he is at risk for pancreatitis. We will monitor his liver functions and repeat his lipid panel in 6 to 12 weeks after taking the medication 12/30/2022 Not-Taking Atorvastatin Calcium 80 MG TAKE 1 TABLET BY MOUTH EVERY DAY; Duration: 90 Active Lisinopril 2.5 MG 1 tablet Orally Once a day Not-Taking Sodium Bicarbonate 650 MG as directed Orally 04/09/2022 Active Dexcom G6 Transmitter - USE DIRECTED; Duration: 90 Active BD Pen Needle Short U/F 31G X 8 MM as directed once a day; Duration: 30 days 07/19/2019 Active Blood Glucose Test - as directed to check blood sugars with Accucheck machine Dx: E11.8 In Vitro three times daily; Duration: 90 Active Vitamin D Active Zolpidem Tartrate 10 MG TAKE 1 TABLET BY MOUTH AT BEDTIME NEEDED FOR 28 DAYS; Duration: 28 01/23/2025 Active Immunizations Vaccine Route Administration Date Status Comme nts COVID Unknown 05/14/2021 Administered COVID Unknown 11/18/2021 Administered COVID 19 Pfizer Unknown 10/19/2020 Administered COVID-19 Pfizer Unknown 05/05/2022 Administered Flu Unknown 06/01/2023 Administered Influenza, high dose seasonal Unknown 05/14/2021 Administered Shingrix Unknown 05/28/2022 Administered Shingrix Unknown 10/06/2022 Administered Zoster Unknown 04/06/2013 Administered about 6 year s ago Social History Tobacco Use: Social History Observation Description Date Details (start date - stop date) Never Smoker NA - NA Tobacco Use/Smoking Question Answer Notes Are you a nonsmoker Alcohol Screen (Audit-C) Question Answer Notes Did you have a drink contain ing alcohol in the past year? Yes How often did you have a dri nk containing alcohol in the past year? 4 or more times a week (4 points) How many drinks did you have on a typical day when you were drinking in the past year? 1 or 2 drinks (0 point) Points 4 Interpretation Positive Problems Problem Type SNOMED Code ICD Code Onset Dates Problem Status W/U Status Risk Notes Problem Tinea pedis (7402643) Tinea pedis (B35.3) Active confirmed Problem Diabetic neuropathy (363250604) Diabetes mellitus due to underlying condition with diabetic neuropathy, unspecified (E08.40) Active confirmed Problem Mixed hyperlipidemia (928918425) Mixed hyperlipidemia (E78.2) Active confirmed Problem Insomnia (895319915) Insomnia, unspecified (G47.00) Active confirmed Problem Hearing loss (14640685) Unspecified hearing loss, unspecified ear (H91.90) Active confirmed Problem Coronary arteriosclerosis of coronary artery bypass graft (518931316) Atherosclerosis of coronary artery bypass graft(s) without angina pectoris (I25.810) Active confirmed Problem Cardiac arrhythmia (579835919) Cardiac arrhythmia, unspecified (I49.9) Active confirmed Problem Diverticular disease of colon (094097985) Diverticulosis of large intestine without perforation or abscess without bleeding (K57.30) Active confirmed Problem Chronic gouty arthritis (26858820) Chronic gout, unspecified, without tophus (tophi) (M1A.9XX0) Active confirmed Problem Pain in right foot (419304273505363) Pain in right foot (M79.671) Active confirmed Problem Chronic kidney disease stage 4 (413400699) Chronic kidney disease, stage 4 (severe) (N18.4) Active confirmed Problem Erectile dysfunction (disorder) (450290484) Male erectile dysfunction, unspecified (N52.9) Active confirmed Problem Snoring (46891310) Snoring (R06.83) Active conf irmed Problem Diarrhea (41724697) Diarrhea, unspecified (R19.7) Active confirmed Problem Eruption of skin (076053868) Rash and other nonspecific skin eruption (R21) Active confirmed Problem Adult health examination (868852436) Encounter for general adult medical examination without abnormal findings (Z00.00) Active confirmed Problem History and physical examination, follow-up (516931817) Encounter for follow-up examination after completed treatment for conditions other than malignant neoplasm (Z09) Active confirmed Problem History of poliomyelitis (938933467) Personal history of poliomyelitis (Z86.12) Active confirmed Problem Essential hypertension (21997113) Essential (primary) hypertension (I10) Active confirmed Problem 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) (365540851) Type 2 diabetes mellitus with other diabetic arthropathy, without long-term current use of insulin (E11.618) Active confirmed Vital Signs Heart Rate 65 /min 12/08/2024 Temperature 97.2 degrees Fahrenheit 12/08/2024 Blood pressure diastolic 86 mm Hg 12/08/2024 Oximetry 96 % 12/08/2024 Height 66 in 12/08/2024 Blood pressure systolic 130 mm Hg 12/08/2024 Weight 247.9 lbs 12/08/2024 BMI 40.01 kg/m2 12/08/2024 Encounters Encounter Location Date Provider Diagnosis [address] [address] 05/16/2024 Virgil Aladenise Type 2 diabetes mellitus with other diabetic arthropathy, without long-term current use of insulin E11.618 ; Chronic gout, unspecified, without tophus (tophi) M1A.9XX0 ; Chronic kidney disease, stage 4 (severe) N18.4 ; Atherosclerosis of coronary artery bypass graft(s) without angina pectoris I25.810 and Mixed hyperlipidemia E78.[address] [address] 09/20/2024 Ghadeer Mazloum Cough R05.9 ; Impact ed cerumen of left ear H61.22 ; Type 2 diabetes mellitus with other diabetic arthropathy, without long-term current use of insulin E11.618 ; Chronic kidney disease, stage 4 (severe) N18.4 ; Mixed hyperlipidemia E78.2 and Essential (primary) hypertension I10 [address] [place] [address] 12/08/2024 DELVALLE Kenny [facility] adult medical examination without abnormal findings Z00.00 ; Atherosclerosis of coronary artery bypass graft(s) without angina pectoris I25.810 ; Diabetes mellitus due to underlying condition with diabetic neuropathy, unspecified E08.40 ; Essential (primary) hypertension I10 and Chronic gout, unspecified, without tophus (tophi) M1A.9XX0 [address] [place] [address] 03/24/[address] [place] [address] 03/31/[address] [place] [address] 04/01/[address] [place] [address] 05/03/[address] [place] [address] 05/30/[address] [place] [address] 06/29/[address] [place] [address] 08/29/[address] [place] [address] 10/17/2024 [facility] Cough R05.[address] [place] [address] 11/22/2024 Anaya Rincon [address] [place] [address] 12/08/2024 DELVALLE WILLIAM Encounter for screen ing for malignant neoplasm of colon Z12.11 [facility] [address] [place] [address] 01/04/2025 ADELIA THOMAS [facility] [address] [place] [address] 01/04/2025 DELVALLE GERSONKenny Assessments Encounter Date Diagnosis (ICD Code) Assessment Notes Treatment Notes Treatment Clinical Notes Section Notes 05/16/2024 Type 2 diabetes mellitus with other diabetic arthropathy, without long-term current use of insulin (ICD-10 - E11.618) 74-year-old gentleman with history of chronic kidney disease stage IV followed by Dr. Swanson, gout, diabetic neuropathy, history of coronary disease hyperlipidemia hypertension is here for a routine 6 months follow-up. Patient has no lab work today he reports he tried to obtain the slip but could not get it, he is supposed to be getting lab work in May with nephrology. Essential hypertensionblood pressure is stable but slightly high above 140 today however patient reports that is mostly high when he comes here at home it runs 120-130 continue current medications. He is supposed to be getting albumin creatinine ratio and a BMP which is scheduled with Dr. Swanson hyperlipidemia continue with atorvastatin Hypertension continue with lisinopril amlodipine and beta-jsesica Obesity continue with exercise and diet controlled he is working on that. For hyperlipidemia he is supposed to be taking Gemfibrozil but have not takendue to the side effects he read. Continue Vascepa 1 GM 2 capsules twice a day, Atorvastatin 80 MG and Zetia 10 MG at night. Type II diabetes mellitus with neuropathy. last A1c was increased back in October to 6.7 we recommended a repeat in 6 months diet controlled medication compliance and exercise. . He has seen his case packer and sealer in the past 1 year. Foot care discussed. Chronic kidney disease stage 4. He does not appear to be in volume overload. Advised appropriate hydration. Avoid NSAIDs. He sees Dr. Whipple. All questions were answered plan was discussed with the patient 09/20/2024 Cough (ICD-10 - R05.9) 74-year-old gentleman [...] has been coughing he has used Robitussin [id number] which improved his cough significantly. Physical exam [...] with diet modification. He has seen his case packer and sealer in the past 1 year. Foot care [...] has been coughing he has used Robitussin [id number] which improved his cough significantly. Physical exam [...] with diet modification. He has seen his case packer and sealer in the past 1 year. Foot care discussed. All questions were answered plan was discussed with the patient I have rendered the services for this patient under direct supervision of Dr. Thomas, who did not see the patient but was available upon request 10/17/2024 Cough (ICD-10 - R05.9) 12/08/2024 Atherosclerosis of coronary artery bypass graft(s) without angina pectoris (ICD-10 - I25.810) Stephan is 74 years old gentleman with insulin-dependent DM type II, hypertension, hyperlipidemia, CABG/coronary artery disease, chronic gout, chronic kidney disease stage IV, chronic insomnia is here today for annual physical. Plan is as follows. CABG/AD. He follows up with Dr. Thomas at [facility]. He is stable and he is on the right medications EKG is normal sinus rhythm at [address]pm with no acute [address] or T wave changes, no bundle-branch blocks, normal intervals. Insulin-dependent DM type II. He is currently on Lantus 10 units and is also on sliding scale and last hemoglobin A1c was within reasonable limits. Foot exam is normal. He has seen case packer and sealer. He is on statins. Chronic kidney disease stage IV. He has mild pedal edema and he follows up with Dr. Whipple. Hypertension/hyperl ipidemia. Blood pressure well controlled on amlodipine 10 mg daily, carvedilol 25 mg 1 tablet twice a day and he is also on atorvastatin 80 mg daily, Zetia 10 mg and vascepa 1 twice a day. Repeat lipid. Chronic gout. Will control at this point in time and check uric acid levels. Chronic insomnia. He is on Ambien 10 mg which he takes every night. He is given orders for Cologuard. He is full code and his is his healthcare proxy. 12/08/2024 Encounter for general adult medical examination without abnormal findings (ICD-10 - Z00.00) Stephan is 74 years old gentleman with insulin-dependent DM type II, hypertension, hyperlipidemia, CABG/coronary artery disease, chronic gout, chronic kidney disease stage IV, chronic insomnia is here today for annual physical. Plan is as follows. CABG/AD. He follows up with Dr. Thomas at [facility]. He is stable and he is on the right medications EKG is normal sinus rhythm at 57 bpm with no acute [address] or T wave changes, no bundle-branch blocks, normal intervals. Insulin-dependent DM type II. He is currently on Lantus 10 units and is also on sliding scale and last hemoglobin A1c was within reasonable limits. Foot exam is normal. He has seen case packer and sealer. He is on statins. Chronic kidney disease stage IV. He has mild pedal edema and he follows up with Dr. Whipple. Hypertension/hyperl ipidemia. Blood pressure well controlled on amlodipine 10 mg daily, carvedilol 25 mg 1 tablet twice a day and he is also on atorvastatin 80 mg daily, Zetia 10 mg and vascepa 1 twice a day. Repeat lipid. Chronic gout. Will control at this point in time and check uric acid levels. Chronic insomnia. He is on Ambien 10 mg which he takes every night. He is given orders for Cologuard. He is full code and his is his healthcare proxy. 12/08/2024 Encounter for screening for malignant neoplasm of colon (ICD-10 - Z12.11) 12/08/2024 Diabetes mellitus due to underlying condition with diabetic neuropathy, unspecified (ICD-10 - E08.40) Stephan is 74 years old gentleman with insulin-dependent DM type II, hypertension, hyperlipidemia, CABG/coronary artery disease, chronic gout, chronic kidney disease stage IV, chronic insomnia is here today for annual physical. Plan is as follows. CABG/AD. He follows up with Dr. Thomas at [facility]. He is stable and he is on the right medications EKG is normal sinus rhythm at 57 bpm with no acute [address] or T wave changes, no bundle-branch blocks, normal intervals. Insulin-dependent DM type II. He is currently on Lantus 10 units and is also on sliding scale and last hemoglobin A1c was within reasonable limits. Foot exam is normal. He has seen case packer and sealer. He is on statins. Chronic kidney disease stage IV. He has mild pedal edema and he follows up with Dr. Whipple. Hypertension/hyperl ipidemia. Blood pressure well controlled on amlodipine 10 mg daily, carvedilol 25 mg 1 tablet twice a day and he is also on atorvastatin 80 mg daily, Zetia 10 mg and vascepa 1 twice a day. Repeat lipid. Chronic gout. Will control at this point in time and check uric acid levels. Chronic insomnia. He is on Ambien 10 mg which he takes every night. He is given orders for Cologuard. He is full code and his is his healthcare proxy. 09/20/2024 Type 2 diabetes mellitus with other [...] has been coughing he has used Robitussin [id number]-opbfdzg which improved his cough significantly. Physical exam [...] with diet modification. He has seen his case packer and sealer in the past 1 year. Foot care discussed. All questions were answered plan was discussed with the patient I have rendered the services for this patient under direct supervision of Dr. Thomas, who did not see the patient but was available upon request 05/16/2024 Chronic gout, unspecified, without tophus (tophi) (ICD-10 - M1A.9XX0) 74-year-old gentleman with history of chronic kidney disease stage IV followed by Dr. Swanson, gout, diabetic neuropathy, history of coronary disease hyperlipidemia hypertension is here for a routine 6 months follow-up. Patient has no lab work today he reports he tried to obtain the slip but could not get it, he is supposed to be getting lab work in May with nephrology. Essential hypertensionblood pressure is stable but slightly high above 140 today however patient reports that is mostly high when he comes here at home it runs 120-130 continue current medications. He is supposed to be getting albumin creatinine ratio and a BMP which is scheduled with Dr. Swanson hyperlipidemia continue with atorvastatin Hypertension continue with lisinopril amlodipine and beta-jessica Obesity continue with exercise and diet controlled he is working on that. For hyperlipidemia he is supposed to be taking Gemfibrozil but have not takendue to the side effects he read. Continue Vascepa 1 GM 2 capsules twice a day, Atorvastatin 80 MG and Zetia 10 MG at night. Type II diabetes mellitus with neuropathy. last A1c was increased back in October to 6.7 we recommended a repeat in 6 months diet controlled medication compliance and exercise. . He has seen his case packer and sealer in the past 1 year. Foot care discussed. Chronic kidney disease stage 4. He does not appear to be in volume overload. Advised appropriate hydration. Avoid NSAIDs. He sees Dr. Whipple. All questions were answered plan was discussed with the patient 05/16/2024 Chronic kidney disease, stage 4 (severe) (ICD-10 - N18.4) 74-year-old gentleman with history of chronic kidney disease stage IV followed by Dr. Swanson, gout, diabetic neuropathy, history of coronary disease hyperlipidemia hypertension is here for a routine 6 months follow-up. Patient has no lab work today he reports he tried to obtain the slip but could not get it, he is supposed to be getting lab work in May with nephrology. Essential hypertensionblood pressure is stable but slightly high above 140 today however patient reports that is mostly high when he comes here at home it runs 120-130 continue current medications. He is supposed to be getting albumin creatinine ratio and a BMP which is scheduled with Dr. Swanson hyperlipidemia continue with atorvastatin Hypertension continue with lisinopril amlodipine and beta-jessica Obesity continue with exercise and diet controlled he is working on that. For hyperlipidemia he is supposed to be taking Gemfibrozil but have not takendue to the side effects he read. Continue Vascepa 1 GM 2 capsules twice a day, Atorvastatin 80 MG and Zetia 10 MG at night. Type II diabetes mellitus with neuropathy. last A1c was increased back in October to 6.7 we recommended a repeat in 6 months diet controlled medication compliance and exercise. . He has seen his case packer and sealer in the past 1 year. Foot care discussed. Chronic kidney disease stage 4. He does not appear to be in volume overload. Advised appropriate hydration. Avoid NSAIDs. He sees Dr. Whipple. All questions were answered plan was discussed with the patient 09/20/2024 Chronic kidney disease, stage 4 (severe) [...] has been coughing he has used Robitussin [id number] which improved his cough significantly. Physical exam [...] with diet modification. He has seen his case packer and sealer in the past 1 year. Foot care discussed. All questions were answered plan was discussed with the patient I have rendered the services for this patient under direct supervision of Dr. Thomas, who did not see the patient but was available upon request 12/08/2024 Essential (primary) hypertension (ICD-10 - I10) Stephan is 74 years old gentleman with insulin-dependent DM type II, hypertension, hyperlipidemia, CABG/coronary artery disease, chronic gout, chronic kidney disease stage IV, chronic insomnia is here today for annual physical. Plan is as follows. CABG/AD. He follows up with Dr. Thomas at [facility]. He is stable and he is on the right medications EKG is normal sinus rhythm at 57 bpm with no acute [address] or T wave changes, no bundle-branch blocks, normal intervals. Insulin-dependent DM type II. He is currently on Lantus 10 units and is also on sliding scale and last hemoglobin A1c was within reasonable limits. Foot exam is normal. He has seen case packer and sealer. He is on statins. Chronic kidney disease stage IV. He has mild pedal edema and he follows up with Dr. Whipple. Hypertension/hyperl ipidemia. Blood pressure well controlled on amlodipine 10 mg daily, carvedilol 25 mg 1 tablet twice a day and he is also on atorvastatin 80 mg daily, Zetia 10 mg and vascepa 1 twice a day. Repeat lipid. Chronic gout. Will control at this point in time and check uric acid levels. Chronic insomnia. He is on Ambien 10 mg which he takes every night. He is given orders for Cologuard. He is full code and his is his healthcare proxy. 12/08/2024 Chronic gout, unspecified, without tophus (tophi) (ICD-10 - M1A.9XX0) Stephan is 74 years old gentleman with insulin-dependent DM type II, hypertension, hyperlipidemia, CABG/coronary artery disease, chronic gout, chronic kidney disease stage IV, chronic insomnia is here today for annual physical. Plan is as follows. CABG/AD. He follows up with Dr. Thomas at [facility]. He is stable and he is on the right medications EKG is normal sinus rhythm at 57 bpm with no acute ST or T wave changes, no bundle-branch blocks, normal intervals. Insulin-dependent DM type II. He is currently on Lantus 10 units and is also on sliding scale and last hemoglobin A1c was within reasonable limits. Foot exam is normal. He has seen case packer and sealer. He is on statins. Chronic kidney disease stage IV. He has mild pedal edema and he follows up with Dr. Whipple. Hypertension/hyperl ipidemia. Blood pressure well controlled on amlodipine 10 mg daily, carvedilol 25 mg 1 tablet twice a day and he is also on atorvastatin 80 mg daily, Zetia 10 mg and vascepa 1 twice a day. Repeat lipid. Chronic gout. Will control at this point in time and check uric acid levels. Chronic insomnia. He is on Ambien 10 mg which he takes every night. He is given orders for Cologuard. He is full code and his is his healthcare proxy. 09/20/2024 Mixed hyperlipidemia (ICD-10 - E78.2) 74-year-old [...] has been coughing he has used Robitussin [id number] which improved his cough significantly. Physical exam [...] with diet modification. He has seen his case packer and sealer in the past 1 year. Foot care discussed. All questions were answered plan was discussed with the patient I have rendered the services for this patient under direct supervision of Dr. Thomas, who did not see the patient but was available upon request 05/16/2024 Atherosclerosis of coronary artery bypass graft(s) without angina pectoris (ICD-10 - I25.810) 74-year-old gentleman with history of chronic kidney disease stage IV followed by Dr. Swanson, gout, diabetic neuropathy, history of coronary disease hyperlipidemia hypertension is here for a routine 6 months follow-up. Patient has no lab work today he reports he tried to obtain the slip but could not get it, he is supposed to be getting lab work in May with nephrology. Essential hypertensionblood pressure is stable but slightly high above 140 today however patient reports that is mostly high when he comes here at home it runs 120-130 continue current medications. He is supposed to be getting albumin creatinine ratio and a BMP which is scheduled with Dr. Swanson hyperlipidemia continue with atorvastatin Hypertension continue with lisinopril amlodipine and beta-jessica Obesity continue with exercise and diet controlled he is working on that. For hyperlipidemia he is supposed to be taking Gemfibrozil but have not takendue to the side effects he read. Continue Vascepa 1 GM 2 capsules twice a day, Atorvastatin 80 MG and Zetia 10 MG at night. Type II diabetes mellitus with neuropathy. last A1c was increased back in October to 6.7 we recommended a repeat in 6 months diet controlled medication compliance and exercise. . He has seen his case packer and sealer in the past 1 year. Foot care discussed. Chronic kidney disease stage 4. He does not appear to be in volume overload. Advised appropriate hydration. Avoid NSAIDs. He sees Dr. Whipple. All questions were answered plan was discussed with the patient 09/20/2024 Essential (primary) hypertension (ICD-10 - I10) [...] has been coughing he has used Robitussin [id number] which improved his cough significantly. Physical exam [...] with diet modification. He has seen his case packer and sealer in the past 1 year. Foot care discussed. All questions were answered plan was discussed with the patient I have rendered the services for this patient under direct supervision of Dr. Thomas, who did not see the patient but was available upon request 05/16/2024 Mixed hyperlipidemia (ICD-10 - E78.2) 74-year-old gentleman with history of chronic kidney disease stage IV followed by Dr. Swanson, gout, diabetic neuropathy, history of coronary disease hyperlipidemia hypertension is here for a routine 6 months follow-up. Patient has no lab work today he reports he tried to obtain the slip but could not get it, he is supposed to be getting lab work in May with nephrology. Essential hypertensionblood pressure is stable but slightly high above 140 today however patient reports that is mostly high when he comes here at home it runs 120-130 continue current medications. He is supposed to be getting albumin creatinine ratio and a BMP which is scheduled with Dr. Swanson hyperlipidemia continue with atorvastatin Hypertension continue with lisinopril amlodipine and beta-jessica Obesity continue with exercise and diet controlled he is working on that. For hyperlipidemia he is supposed to be taking Gemfibrozil but have not takendue to the side effects he read. Continue Vascepa 1 GM 2 capsules twice a day, Atorvastatin 80 MG and Zetia 10 MG at night. Type II diabetes mellitus with neuropathy. last A1c was increased back in October to 6.7 we recommended a repeat in 6 months diet controlled medication compliance and exercise. . He has seen his case packer and sealer in the past 1 year. Foot care discussed. Chronic kidney disease stage 4. He does not appear to be in volume overload. Advised appropriate hydration. Avoid NSAIDs. He sees Dr. Whipple. All questions were answered plan was discussed with the patient Plan Of Treatment Pending Test Test Name Order Date HEMOGLOBIN A1C 04/17/2022 HEMOGLOBIN A1C WITH EST GLUCOSE 10/10/19 23 LIPID PANEL 04/21/2022 POTASSIUM 10/09/2022 Cologuard 12/08/2024 Future Test Test Name Order Date Uric [id number] 12/08/2024 Hemoglobin [id number] 12/08/2024 Albumin/Creatinine Ratio,[id number] Lipid Panel-[id number] 12/08/2024 Comp. Metabolic Panel [id number] 2024 Next Appt Details Provider Name:ADELIA THOMAS , 04/13/2025 02:30:00 PM, [address] [place] [address], [phone], Insurance Providers Payer Name Payer Address Payer Phone Subscriber Number Group Number Insured Name Patient Relationship to Insured Coverage Start Date Coverage End Date Medicare [address] [place] [phone] [id number] Sarabjit Enriquez Self - patient is the insured 7 [email or web address] [address] [place] [address] [id number] Sarabjit Enriquez Self - patient is the insured Medical (General) History Medical History History ICD Code hypertension, benign hyperlipidemia insomnia Gout type II diabetes 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 Jefferson at [facility] in Apr Lyme's disease Low Back Pain Guerita-Dr. Whipple Hospitalization History Reason Date(Month/Year)
--- OUTSIDE RECORDS SUMMARY | 2025-02-09 14:32 | XMS_ITS | Clinical Summary ---
Author Organization [facility] Address [address] [place] [id number] Care Team Providers Care Completion Manager Name Role Phone Jesús Holder MD Primary Care Provider [phone] Allergies No known active allergies Medications Medication [...] 63 01/24/2019 9:06 PM EDT Temperature 36.7 C (98.1 F) 01/24/2019 9:06 PM EDT Respiratory Rate 16 01/24/2019 9:06 PM EDT [...] 5 season) 2024 10/19/2020 Influenza Vaccine (#1) 2025 RSV Adult > 60+ Yrs or Pregn ant (1 - 1-dose 75+ series) 2027 Hepatitis B Vaccines Aged Out No long er eligible based on patient's age to complete this topic RSV Ped < 20 months Aged Out No longe r eligible based on patient's age to complete this topic Care Teams Completion Manager Relationship Specialty Start Date End Date Jesús Holder MD [address] [place] [address] PCP - General Family Medicine 08/02/15
--- OUTSIDE RECORDS SUMMARY | 2025-02-09 14:32 | XMS_ITS | Clinical Summary ---
Author Organization [facility] Address [address] [place] [address] Care Team Providers Care Health Data Analyst Name Role Phone nAdrez Reyes MD Primary Care Provider [phone] Medical History Medical History Date Comments HTN (hypertension) DX:HTN (hyper tension) Hyperlipidemia DX:Hyperlipidemi a Gout DX:Gout CKD (chronic kidney disease) DX: CKD (chronic kidney disease) Insomnia 04/27/2019 DX:Insomnia Snoring 04/27/2019 DX:Snoring History of poliomyelitis 04/27/2019 DX:Hist ory of poliomyelitis; COMMENT: Right foot affected Type 2 diabetes mellitus wit h renal manifestations (CMS/HCC V24, CMS/HCC V28) 03/09/2019 DX:Type 2 diabetes mellitus with renal [...] - season) 2024 10/19/2020 Influenza Vaccine (#1) 2025 2, 05/14/2021, 05/17/2020, Additional history exists RSV Immunization Adult Patients (1 - 1-dose 75+ series) 2027 HIB [...] age to complete this topic Meningococcal B Vaccine Aged Out No l onger eligible based on patient's age to complete this topic RSV Immunization Patients Under 20 months Aged Out No longer eligible based on patient's age to complete this topic Varicella Vaccines Aged Out No longer eligible based on patient's age to complete this topic Care Teams Health Data Analyst Relationship Specialty Start Date End Date Andrez Reyes MD [address] [place] [address] PCP - General Internal Medicine 02/04/19
== END 2025-02-09 14:57 | disposition home or self-care (01) ==
LOC: HO.HKAS 13:49
PROVIDERS: PCP Hospitalist; Visit Provider Internal Medicine Nephrology
DX: E11.21 Type 2 diabetes mellitus with diabetic nephropathy (principal); N18.4 Chronic kidney disease, stage 4 (severe); R80.1 Persistent proteinuria, unspecified; E87.20 Acidosis, unspecified
CPT/HCPCS: 99214

== ENCOUNTER → 2025-02-09 13:49 | Outpatient (BNVA) | payer MEDICARE, OTHER, SELFPAY | PROVIDERS: PCP Hospitalist; Visit Provider Internal Medicine Nephrology | DX: E11.22 Type 2 diabetes mellitus with diabetic chronic kidney disease (principal); N18.4 Chronic kidney disease, stage 4 (severe); E11.21 Type 2 diabetes mellitus with diabetic nephropathy; R80.1 Persistent proteinuria, unspecified; E87.20 Acidosis, unspecified | CPT/HCPCS: 99212 ==

== ENCOUNTER 2025-03-23 13:45 | Outpatient (AMB) | payer MEDICARE, OTHER, SELFPAY ==
[2025-03-23 13:51] VITALS: BP 150/80; PULSE 62; O2SAT 98; BMI 38.6
--- NOTE | 2025-03-23 13:51 | HO.NEPHOV ---
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 Enriquez was seen in follow-up of his diabetic nephropathy. He has chronic kidney disease 4. He had been doing well after his CABG . His blood sugar control has been fair. His blood pressure is controlled. He claims to be taking NaHCO3 but still remains acidotic. He has no edema. His psoriasis is under good control. He denies chest pain, nausea vomiting, diarrhea, urinary symptoms or orthostatic symptoms. His serum creatinine is stable [facility] Medical History Secondary hyperparathyroidism Vitamin D deficiency Metabolic acidosis Proteinuria Diabetes mellitus with nephropathy Essential (primary) hypertension Chronic kidney disease Surgical History Hx of CABG Family History Maternal Grandmother Heart disease Social History Alcohol intake: current Patient Tobacco Use Status: Never used Tobacco Review of Systems Const All systems reviewed & are unremarkable except as noted in HPI and below Physical Exam Vital Signs: Last Vital Signs Pulse 62 03/23/25 13:51 BP 150/80 H 03/23/25 13:51 Pulse Ox 98 03/23/25 13:51 Oxygen Delivery Method Room Air 03/23/25 13:51 BMI result Body Mass Index 38.6 Const General: comfortable and no acute distress Orientation/consciousness: patient oriented x3 HEENT Head: Yes normocephalic Mouth: Normal oral and palatal mucosa present Eyes EOM: EOMs intact bilaterally Neck Neck: Yes supple Resp Auscultation: clear to auscultation bilaterally Cardio Jugular venous distension: no JVD Rate: regular rate GI Palpation (GI): Soft to palpation Auscultation: normal bowel sounds General: Yes no CVA tenderness Back/Spine/Pelvis Back: no CVA tenderness Skin General skin exam: no rashes or lesions noted Neuro General: patient oriented x3 and moves all extremities Extrem General: Yes no pedal edema Assessment & Plan Assessment & Plan (1) Metabolic acidosis: Code(s): E87.20 - Acidosis, unspecified Category: Medical (2) CKD (chronic kidney disease) stage 4, GFR 15-29 ml/min: Code(s): N18.4 - Chronic kidney disease, stage 4 (severe) Category: Medical (3) Diabetes mellitus with nephropathy: Code(s): E11.21 - Type 2 diabetes mellitus with diabetic nephropathy Category: Medical Plan Stephan has diabetic nephropathy. He needs to lose weight. His blood pressure is well controlled. He can continue lasix 40 mg every other day. He needs to keep up with a low-sodium diet. I increased his sodium bicarbonate to 1300 mg tid. His Farxiga, ACEI are on hold. He should continue Kayexalate 30 Gram twice a week. He needs a sleep study. He is on Vitamin D 57720 U once a month. He avoids nonsteroidal anti-inflammatories and maintain good hydration. I did not make any other medication changes today. Follow-up lab work ordered. He will need referral to [place] and a 24 hour urine for cr cl soon. Answered all questions Orders: Orders Creatinine 6 Weeks E87.20 - Acidosis, unspecified, N18.4 - Chronic kidney disease, stage 4 (severe) Electrolytes 6 Weeks E87.20 - Acidosis, unspecified, N18.4 - Chronic kidney disease, stage 4 (severe) Blood Urea Nitrogen 6 Weeks E87.20 - Acidosis, unspecified, N18.4 - Chronic kidney disease, stage 4 (severe) Medications: Changed From sodium bicarbonate 1,300 mg PO TID To sodium bicarbonate 1,300 mg (2 x 650 mg) PO TID 180 tabs 3RF 30 days Coding Level of Care Code Est Pt Level 4 (64672) Diagnoses Metabolic acidosis E87.20 CKD (chronic kidney disease) stage 4, GFR 15-29 ml/min N18.4 Diabetes mellitus with nephropathy E11.21
--- OUTSIDE RECORDS SUMMARY | 2025-03-23 14:28 | XMS_ITS | Encounter Summary ---
Author Organization [facility] Address [address] [facility] [address] [place] [address] Phone Care Team Providers Care Director Radio Name Role Phone Andrez Reyes MD Primary Care Provider [phone] Encounter Details Date Type Department Care Team ([facility] st Contact Info) Description 09/12/2020 Orders Only [facility] [address] [facility] [address] [place] [address] Provider, MD Jeremy Social History [...] on filedocumented in this encounter Care Teams Director Radio Relationship Specialty Start Date End Date Andrez Reyes MD [address] [place] [address] PCP - General 08/06/20 documented as of this encounter
--- OUTSIDE RECORDS SUMMARY | 2025-03-23 14:28 | XMS_ITS | Patient Health Record ---
Author Organization [facility] Address [address] [facility] [address] [place] [address] Care Team Providers Care Layboy Operator Name Role Phone GERSONADELIA Cox Primary Care Provider [phone] ChaceOlamide walkerchaka Unavailable [phone] BenjifernAnaya soto Unavailable [phone] Allergies No Known Allergies Results Component Value Reference Range Notes Hemoglobin A1c Reviewed date:06/14/2024 09:37:15 AM Interpretation: Performing Lab:[facility], [address] [place] [address], Phone - [phone], Director - MDPoirronna Notes/Report: Hemoglobin A1c 5.9 Reference Range: [place] [employer] Diabetes Association (ADA) Guidelines: <5.7: Decreased risk for diabetes 5.7 - 6.4: Increased risk for diabetes >6.4: Ongoing Hyperglycemia of any cause <7.0: Glycemic control for adults with diabetes Estimated Average Glucose 123 Uric Acid-[id number] Reviewed date:03/20/2025 01:07:50 PM Interpretation: Performing Lab:[facility], [address] [place] [address], Phone - [phone], Director - Zoraida Notes/Report: Uric Acid 6.0 3.8-8.4 mg/dL Therapeutic ta rget for gout patients: <6.0 Hemoglobin [id number]-[id number] Reviewed date:03/20/2025 01:07:54 PM Interpretation: Performing Lab:[facility], [address] [place] [address], Phone - [phone], Director - Zoraida Notes/Report: Hemoglobin A1c 6.5 4.8-5.6 % . Prediabetes: 5.7 - 6.4 Diabetes: >6.4 Glycemic control for adults with diabetes: <7.0 Albumin/Creatinine Ratio,Uri ne-[id number] Reviewed date:03/20/2025 01:07:58 PM Interpretation: Performing Lab:[facility]rina, [address] [facility], Phone - [phone], Director - [facility] Notes/Report: Creatinine, Urine 87.7 Not Estab. mg/dL Albumin, Urine 4485.8 Not Estab. ug/mL Results confirmed on dilution. Alb/Creat Ratio 5115 0-29 mg/g creat Normal: 0 - 29 Moderately increased: 30 - 300 Severely increased: >300 Lipid Panel-[id number] Reviewed date:03/20/2025 01:08:03 PM Interpretation: Performing Lab:[facility], [address] [facility], [place], Phone - [phone], Director - Reay Notes/Report: Cholesterol, Total 198 100-199 mg/dL Triglycerides 406 0-149 mg/dL HDL Cholesterol 59 >39 mg/dL VLDL Cholesterol Rojelio 64 5-40 mg/dL LDL Chol Calc (NIH) 75 0-99 mg/dL Comp. Metabolic Panel (14)-3 79386 Reviewed date:03/20/2025 01:08:09 PM Interpretation: Performing Lab:[facility] [place], [address] [facility], [place], Phone - [phone], Director - lauryn Notes/Report: Glucose 124 70-99 mg/dL BUN 52 8-27 mg/dL Creatinine 4.25 0.76-1.27 mg/dL eGFR 14 >59 mL/min/1.73 BUN/Creatinine Ratio 12 10-24 Sodium 137 134-144 mmol/L Potassium 4.6 3.5-5.2 mmol/L Chloride 104 96-106 mmol/L Carbon Dioxide, Total 15 20-29 mmol/L Calcium 8.4 8.6-10.2 mg/dL Protein, Total 6.4 6.0-8.5 g/dL Albumin 3.8 3.8-4.8 g/dL Globulin, Total 2.6 1.5-4.5 g/dL Bilirubin, Total 0.5 0.0-1.2 mg/dL Alkaline Phosphatase 85 44-121 IU/L AST (SGOT) 26 0-40 IU/L ALT (SGPT) 26 0-44 IU/L Reason For Referral No Information Medications Medication [...] MOUTH TWICE A DAY WITH MEALS; Duration: 90 Active Ezetimibe 10 MG TAKE 1 TABLET BY MOUTH EVERY DAY; Duration: 90 Active Atorvastatin Calcium 80 MG TAKE 1 [...] a day; Duration: 7 days 09/20/2024 Active Dexcom G6 Transmitter - USE as DIRECTED; Duration: 90 days Active HumaLOG KwikPen 100 UNIT/ML SLIDING SCALE [...] weeks after taking the medication 12/30/2022 Not-Taking Lisinopril 2.5 MG 1 tablet Orally Once a day Not-Taking Sodium Bicarbonate 650 MG as directed Orally 04/09/2022 Active BD Pen Needle Short U/F 31G X 8 MM as directed once a day; Duration: 30 days 07/19/2019 Active Blood Glucose Test - as directed to check blood sugars with Accucheck machine Dx: E11.8 In Vitro three times daily; Duration: 90 Active Vitamin D Active Zolpidem Tartrate 10 MG TAKE 1 TABLET BY MOUTH AT BEDTIME NEEDED FOR 28 DAYS; Duration: 28 02/16/2025 Active Immunizations Vaccine Route Administration Date Status [...] W/U Status Risk Notes Problem Tinea pedis (2059720) Tinea pedis (B35.3) Active confirmed Problem Diabetic neuropathy (131717753) Diabetes mellitus due to underlying condition with diabetic neuropathy, unspecified (E08.40) Active confirmed Problem Mixed hyperlipidemia (523444706) Mixed hyperlipidemia (E78.2) Active confirmed Problem Insomnia (109245601) Insomnia, unspecified (G47.00) Active confirmed Problem Hearing loss (94154629) Unspecified hearing loss, unspecified ear (H91.90) Active confirmed Problem Coronary arteriosclerosis of coronary artery bypass graft (007430831) Atherosclerosis of coronary artery bypass graft(s) without angina pectoris (I25.810) Active confirmed Problem Cardiac arrhythmia (750556549) Cardiac arrhythmia, unspecified (I49.9) Active confirmed Problem Diverticular disease of colon (347270017) Diverticulosis of large intestine without perforation or abscess without bleeding (K57.30) Active confirmed Problem Chronic gouty arthritis (67683762) Chronic gout, unspecified, without tophus (tophi) (M1A.9XX0) Active confirmed Problem Pain in right foot (624629635563086) Pain in right foot (M79.671) Active confirmed Problem Chronic kidney disease stage 4 (110499500) Chronic kidney disease, stage 4 (severe) (N18.4) Active confirmed Problem Erectile dysfunction (disorder) (300028986) Male erectile dysfunction, unspecified (N52.9) Active confirmed Problem Snoring (21682412) Snoring (R06.83) Active conf irmed Problem Diarrhea (18895205) Diarrhea, unspecified (R19.7) Active confirmed Problem Eruption of skin (865012108) Rash and other nonspecific skin eruption (R21) Active confirmed Problem Adult health examination (047579134) Encounter for general adult medical examination without abnormal findings (Z00.00) Active confirmed Problem History and physical examination, follow-up (535858842) Encounter for follow-up examination after completed treatment for conditions other than malignant neoplasm (Z09) Active confirmed Problem History of poliomyelitis (547592957) Personal history of poliomyelitis (Z86.12) Active confirmed Problem Essential hypertension (92091249) Essential (primary) hypertension (I10) Active confirmed Problem 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) (932546513) Type 2 diabetes mellitus with other diabetic [...] 12/08/2024 Encounters Encounter Location Date Provider Diagnosis [address] [place] [address] 05/16/2024 Virgil Parsons Type 2 diabetes mellitus with other diabetic arthropathy, without long-term current use of insulin E11.618 ; Chronic gout, unspecified, without tophus (tophi) M1A.9XX0 ; Chronic kidney disease, stage 4 (severe) N18.4 ; Atherosclerosis of coronary artery bypass graft(s) without angina pectoris I25.810 and Mixed hyperlipidemia E78.[address] [place] [address] 09/20/2024 Ghadeer Mazloum Cough R05.9 ; Impact ed cerumen of left ear H61.22 ; Type 2 diabetes mellitus with other diabetic arthropathy, without long-term current use of insulin E11.618 ; Chronic kidney disease, stage 4 (severe) N18.4 ; Mixed hyperlipidemia E78.2 and Essential (primary) hypertension I10 [address] [place] [address] 12/08/2024 [facility] Encounter for genera l adult medical examination without abnormal findings Z00.00 ; Atherosclerosis of coronary artery bypass graft(s) without angina pectoris I25.810 ; Diabetes mellitus due to underlying condition with diabetic neuropathy, unspecified E08.40 ; Essential (primary) hypertension I10 and Chronic gout, unspecified, without tophus (tophi) M1A.9XX0 [address] [place] [address] 03/24/[address] [place] [address] 03/31/[address] [place] [address] 04/01/[address] [place] [address] 05/03/[address] [place] [address] 05/30/2024 Virgil Parsons [facility] [address] [place] [address] 06/29/2024 ADELIA THOMAS [facility] [address] [place] [address] 08/29/[address] [place] [address] 10/17/2024 DELVALLE GUL Cough R05.[address] [place] [address] 11/22/2024 Jongalbaro Rincon [address] [place] [address] 12/08/2024 DELVALLE WILLIAM Encounter for screen ing for malignant neoplasm of colon Z12.[address] [place] [address] 01/04/[address] [place] [address] 01/04/[address] [place] [address] 02/28/2025 DELVALLE WILLIAM Diabetes mellitus du e to underlying condition with diabetic neuropathy, unspecified E08.40 Assessments Encounter Date Diagnosis (ICD Code) Assessment [...] and exercise. . He has seen his home aide in the past 1 year. Foot care [...] has been coughing he has used Robitussin [id number]-[id number] which improved his cough significantly. Physical exam [...] with diet modification. He has seen his home aide in the past 1 year. Foot care [...] has been coughing he has used Robitussin kevn-kqu-iuuypcu which improved his cough significantly. Physical exam [...] with diet modification. He has seen his home aide in the past 1 year. Foot care [...] He follows up with Dr. Thomas at [facility]. He is stable and he is on the right medications EKG is normal sinus rhythm at 57 bpm with no acute ST or T wave changes, no bundle-branch blocks, normal intervals. Insulin-dependent DM type II. He is currently on Lantus 10 units and is also on sliding scale and last hemoglobin A1c was within reasonable limits. Foot exam is normal. He has seen home aide. He is on statins. Chronic kidney disease [...] He follows up with Dr. Thomas at [facility]. He is stable and he is on the right medications EKG is normal sinus rhythm at 57 bpm with no acute ST or T wave changes, no bundle-branch blocks, normal intervals. Insulin-dependent DM type II. He is currently on Lantus 10 units and is also on sliding scale and last hemoglobin A1c was within reasonable limits. Foot exam is normal. He has seen home aide. He is on statins. Chronic kidney disease [...] malignant neoplasm of colon (ICD-10 - Z12.11) 02/28/2025 Diabetes mellitus due to underlying condition with diabetic neuropathy, unspecified (ICD-10 - E08.40) 12/08/2024 Diabetes mellitus due to underlying condition with diabetic neuropathy, unspecified (ICD-10 - E08.40) Stephan is 74 years old gentleman with insulin-dependent DM type II, hypertension, hyperlipidemia, CABG/coronary artery disease, chronic gout, chronic kidney disease stage IV, chronic insomnia is here today for annual physical. Plan is as follows. CABG/AD. He follows up with Dr. Thomas at [facility]. He is stable and he is on the right medications EKG is normal sinus rhythm at 57 bpm with no acute ST or T wave changes, no bundle-branch blocks, normal intervals. Insulin-dependent DM type II. He is currently on Lantus 10 units and is also on sliding scale and last hemoglobin A1c was within reasonable limits. Foot exam is normal. He has seen home aide. He is on statins. Chronic kidney disease [...] has been coughing he has used Robitussin [id number]-gfbfvrw which improved his cough significantly. Physical exam [...] with diet modification. He has seen his home aide in the past 1 year. Foot care [...] and exercise. . He has seen his home aide in the past 1 year. Foot care [...] and exercise. . He has seen his home aide in the past 1 year. Foot care [...] has been coughing he has used Robitussin ntif-uir-rqsseun which improved his cough significantly. Physical exam [...] with diet modification. He has seen his home aide in the past 1 year. Foot care [...] He follows up with Dr. Thomas at [facility]. He is stable and he is on the right medications EKG is normal sinus rhythm at 57 bpm with no acute ST or T wave changes, no bundle-branch blocks, normal intervals. Insulin-dependent DM type II. He is currently on Lantus 10 units and is also on sliding scale and last hemoglobin A1c was within reasonable limits. Foot exam is normal. He has seen home aide. He is on statins. Chronic kidney disease [...] He follows up with Dr. Thomas at [facility]. He is stable and he is on the right medications EKG is normal sinus rhythm at 57 bpm with no acute ST or T wave changes, no bundle-branch blocks, normal intervals. Insulin-dependent DM type II. He is currently on Lantus 10 units and is also on sliding scale and last hemoglobin A1c was within reasonable limits. Foot exam is normal. He has seen home aide. He is on statins. Chronic kidney disease [...] has been coughing he has used Robitussin kdem-fmx-tdfkcig which improved his cough significantly. Physical exam [...] with diet modification. He has seen his home aide in the past 1 year. Foot care [...] and exercise. . He has seen his home aide in the past 1 year. Foot care [...] has been coughing he has used Robitussin igks-bdz-lyjcbhh which improved his cough significantly. Physical exam [...] with diet modification. He has seen his home aide in the past 1 year. Foot care [...] and exercise. . He has seen his home aide in the past 1 year. Foot care [...] LIPID PANEL 04/21/2022 POTASSIUM 10/09/2022 Cologuard 12/08/2024 Next Appt Details Provider Name:ADELIA THOMAS , 04/13/2025 02:30:00 PM, [address] [place] [address], [place], [address], Insurance Providers Payer Name Payer Address Payer Phone Subscriber Number Group Number Insured Name Patient Relationship to Insured Coverage Start Date Coverage End Date Medicare [address] [place] [phone] [id number] Sarabjit Enriquez Self - patient is the insured [employer] [address] [place] [phone] [id number] Sarabjit Enriquez Self - patient is the insured Medical (General) History Medical History History ICD Code hypertension, benign hyperlipidemia insomnia Gout type II diabetes 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 Jefferson at [facility] in Apr Lyme's disease Low Back Pain Guerita-Dr. Whipple Hospitalization History Reason Date(Month/Year)
--- OUTSIDE RECORDS SUMMARY | 2025-03-23 14:28 | XMS_ITS | Clinical Summary ---
Author Organization [facility] Address [address] [place] [address] Care Team Providers Care Lead Java Programmer Name Role Phone Jesús Holder MD Primary Care Provider [phone] Allergies No known active allergies Medications Medication [...] age to complete this topic Care Teams Lead Java Programmer Relationship Specialty Start Date End Date Jesús Holder MD [address] [place] [address] PCP - General Family Medicine 08/02/15
--- OUTSIDE RECORDS SUMMARY | 2025-03-23 14:28 | XMS_ITS | Encounter Summary ---
Author Organization [facility] Address [address] [place] [address] Phone Care Team Providers Care Special Education Educational Assistant Name Role Phone Andrez Reyes MD Primary Care Provider [phone] Encounter Details Date Type Department Care Team (Late st Contact Info) Description 01/23/2021 Orders Only [facility] [address] [facility] [address] [place] [address] Praneeth Whipple MD Renal disorder [...] 9:03 AM EDT) Glucose 119(H) (70-99) MG/DL [facility] BUN 52(H) (8-23) MG/DL [facility] Creatinine 2.8(H) (0.7-1.2) MG/DL [facility] Sodium 137 (133-145) MMOL/L [facility] Potassium 4.7 (3.6-5.2) MMOL/L [facility] Chloride 108(H) (98-107) MMOL/L [facility] Bicarbonate (CO2) 16(L) (22-29) MMOL/L [facility] Anion Gap 13 (4-17) [facility] Albumin 4.4 (3.4-4.8) GM/DL [facility] Calcium 9.2 (8.6-10.5) MG/DL [facility] Phosphorus, Serum 4.2 (2.5-4.5) MG/DL [facility] Est GFR Non 22 ML/MIN/1.7 3 M2 [facility] Comment: Effective 04/17/2021, race modifiers will [...] ethnic subgroups. Testing performed or reported by [facility], a Service of [facility], [address] [place] [address] Jesus Kelly MD, Casing Finisher And Stuffer [facility]# [id number] 04/18/2021 9:03 AM EDT 04/18/2021 9:09 AM EDT us Praneeth Whipple MD LAB BLOOD ORDERABLES Final Resul t [facility] * (ABNORMAL) Renal function panel (01/03/2021 8:53 AM EDT) [facility] Glucose 116(H) (70-99) MG/DL [facility] BUN 48(H) (8-23) MG/DL [facility] Creatinine 3.0(H) (0.7-1.2) MG/DL [facility] Sodium 140 (133-145) MMOL/L [facility] Potassium 4.8 (3.6-5.2) MMOL/L [facility] Chloride 109(H) (98-107) MMOL/L [facility] Bicarbonate (CO2) 19(L) (22-29) MMOL/L [facility] Anion Gap 12 (4-17) [facility] Albumin 4.6 (3.4-4.8) GM/DL [facility] Calcium 9.2 (8.6-10.5) MG/DL [facility] Phosphorus, Serum 4.5 (2.5-4.5) MG/DL [facility] Est GFR Non 20 ML/MIN/1.7 3 M2 [facility] Comment: Creatinine based estimated glomerular filtration rate (eGFR) is calculated using the Chronic Kidney Disease Epidemiology Collaboration (CKD-EPI). The CKD-EPI creatinine equation has not been validated in children (<18 years), women or in some racial or ethnic subgroups other than Caucasians and Americans. EST GFR 24 ML/MIN/1.7 3 M2 [facility] Comment: Creatinine based estimated glomerular filtration rate (eGFR) is calculated using the Chronic Kidney Disease Epidemiology Collaboration (CKD-EPI). The CKD-EPI creatinine equation has not been validated in children (<18 years), women or in some racial or ethnic subgroups other than Caucasians and Americans. Testing performed or reported by [facility], a Service of [facility], [address] [place] [address] Jesus Kelly MD, Casing Finisher And Stuffer Blood specimen (specimen) Venous blood / Unknown 01/03/2021 8:53 AM EDT 01/03/2021 9:05 AM EDT us Praneeth Whipple MD LAB BLOOD ORDERABLES Final Resul t [facility] * (ABNORMAL) CBC (01/03/2021 8:53 AM EDT) White Blood Cells 5.4 (4.0-11.0) K/MM3 [facility] RBC 4.10(L) (4.70-6.10 ) M/MM3 [facility] Hgb 12.4(L) (13.7-17.1 ) GM/DL [facility] Hematocrit 39.0(L) (40.5-50.0 ) % [facility] MCV 95.1(H) (80.0-94.0 ) FL [facility] MCH 30.2 (27.0-34.0 ) PG [facility] MCHC 31.8(L) (33.0-37.0 ) g/dL [facility] Platelets 149(L) (150-460) K/MM3 [facility] RDW-SD 49.2(H) (<47.0) [place] [facility] MPV 11.9 (9.4-12.4) [place] [facility] nRBC Count 0.0 #/100 WBC'S [facility] NRBC Absolute 0.0 K/MM3 [facility] Comment: Testing performed or reported by [facility], a Service of [facility], [address] [place] [address] Jesus Kelly MD, Casing Finisher And Stuffer Blood specimen (specimen) Venous blood / Unknown 01/03/2021 8:53 AM EDT 01/03/2021 9:05 AM EDT us Praneeth Whipple MD LAB BLOOD ORDERABLES Final Resul t [facility] documented in this encounter Visit Diagnoses Diagnosis Renal disorder due to type 2 diabetes mellitus <Diabetic nephropathy> (HCC) Hypertensive renal disease Stage 3b chronic kidney disease (HCC) documented in this encounter Care Teams Special Education Educational Assistant Relationship Specialty Start Date End Date Andrez Reyes MD [address] [place] [id number] PCP - General 08/06/20 documented as of this encounter
--- OUTSIDE RECORDS SUMMARY | 2025-03-23 14:28 | XMS_ITS | Clinical Summary ---
Author Organization [facility] Address [address] [facility] [address] [place] [address] Phone Care Team Providers Care Roving Hand Name Role Phone Andrez Reyes MD Primary Care Provider [phone] Allergies No known active allergies Medications allopurinol [...] 10/22/2020 10/22/2020 Tinea pedis 10/22/2020 10/22/2020 Immunizations Immunization Administration Dates Next Due Influenza Split High [...] Due Date Last Done Comments Pneumococcal Vaccine: 50+ Years (1 of 2 - PCV) 1971 Colorectal Cancer Screening: Annual FOBT 2001 Colorectal Cancer Screening: Colonoscopy 2001 Colorectal Cancer Screening: Sigmoidoscopy 2001 Diabetes: Hemoglobin A1C 08/27/2020 Diabetes: Ophthalmology Exam 08/27/2020 Diabetes: Pedal Pulse Checked 08/27/2020 Diabetes: Sensory Foot Exam 08/27/2020 Diabetes: Visual Foot Exam 08/27/2020 Influenza Vaccine (#1) 2025 , 05/04/2019 Hepatitis B Vaccine Aged Out No longe r eligible based on patient's age to complete this topic Insurance [facility] Medicare [facility] Medicare Care Teams Roving Hand Relationship Specialty Start Date End Date Andrez Reyes MD [address] [place] [phone] PCP - General 08/06/20
--- OUTSIDE RECORDS SUMMARY | 2025-03-23 14:28 | XMS_ITS | Encounter Summary ---
Author Organization [facility] Address [address] [facility] [address] [place] [address] Phone Care Team Providers Care Personnel Associate Name Role Phone Andrez Reyes MD Primary Care Provider [phone] Encounter Details Date Type Department Care Team (Late st Contact Info) Description 10/28/2022 Telephone [facility] [address] [facility] [address] [place] [phone] Denisse Montes [place] Social History Tobacco Use [...] on filedocumented in this encounter Care Teams Personnel Associate Relationship Specialty Start Date End Date Andrez Reyes MD [address] [place] [address] PCP - General 08/06/20 documented as of this encounter
--- OUTSIDE RECORDS SUMMARY | 2025-03-23 14:29 | XMS_ITS | Clinical Summary ---
Author Organization [facility] Address [address] [place] [address] Care Team Providers Care Vessel Engineer Name Role Phone Andrez Reyes MD Primary Care Provider [phone] Medical History Medical History Date Comments HTN [...] COVID-19 Vaccine (2 - season) 2024 10/19/2020 Depression Screening 07/27/2024 Influenza Vaccine (#1) 2025 , 05/14/2021, 05/17/2020, Additional history exists RSV Immunization [...] age to complete this topic Care Teams Vessel Engineer Relationship Specialty Start Date End Date Andrez Reyes MD [address] [place] [phone] PCP - General Internal Medicine 02/04/19
--- OUTSIDE RECORDS SUMMARY | 2025-03-23 14:29 | XMS_ITS | Clinical Summary ---
Author Organization [facility] Address [address] [place] [address] Care Team Providers Care Radial Drill Press Operator For Plastic Name Role Phone Unavailable Primary Care Provider Unavailabl e Social History Tobacco Use Types Packs/Day Years Used Date Smoking Tobacco: Never Assessed Sex and Gender Information Value Date Recorded Sex Assigned at Not on file Legal Sex Male 2:36 PM EDT Gender Identity Not on file Sexual Orientation Not on file Plan of Treatment Health Maintenance Due Date Last Done Comments Advance Care Planning 1950 Hepatitis C Virus Screening 1950 DTaP/Tdap/Td Vaccines [...]
== END 2025-03-23 14:38 | disposition home or self-care (01) ==
LOC: HO.HKAS 13:46
PROVIDERS: PCP Hospitalist; Visit Provider Internal Medicine Nephrology
DX: E87.20 Acidosis, unspecified (principal); N18.4 Chronic kidney disease, stage 4 (severe); E11.21 Type 2 diabetes mellitus with diabetic nephropathy
CPT/HCPCS: 99214

== ENCOUNTER → 2025-03-23 13:45 | Outpatient (BNVA) | payer MEDICARE, OTHER, SELFPAY | PROVIDERS: PCP Hospitalist; Visit Provider Internal Medicine Nephrology | DX: E11.22 Type 2 diabetes mellitus with diabetic chronic kidney disease (principal); N18.4 Chronic kidney disease, stage 4 (severe); E87.20 Acidosis, unspecified; E11.21 Type 2 diabetes mellitus with diabetic nephropathy | CPT/HCPCS: 99212 ==

== ENCOUNTER 2025-07-06 13:59 | Outpatient (REF) | payer MEDICARE, OTHER, SELFPAY | END 2025-07-06 14:00 | disposition home or self-care (01) | LOC: HO.HKASLDS 13:59 | PROVIDERS: PCP Hospitalist; Visit Provider Internal Medicine Nephrology | DX: E11.22 Type 2 diabetes mellitus with diabetic chronic kidney disease (principal); N18.5 Chronic kidney disease, stage 5; E87.20 Acidosis, unspecified; E87.5 Hyperkalemia; R80.1 Persistent proteinuria, unspecified | CPT/HCPCS: 99212 ==

== ENCOUNTER 2025-07-06 13:59 | Outpatient (AMB) | payer MEDICARE, OTHER, SELFPAY ==
--- OUTSIDE RECORDS SUMMARY | 2024-10-31 09:00 | XMS_ITS ---
Author Organization [facility] Address [address] [address] Care Team Providers Care Poultry Offal Worker Name Role Phone ADELIA THOMAS Primary Care Provider [phone] Anaya Rincon Unavailable [phone] REASON FOR VISIT 6 month f/u Encounters Encounter Location Date Provider Diagnosis [facility] [address] [address] 10/31/2024 Anaya Rincon Plan Of Treatment Next Appt Details Provider Name:ADELIA THOMAS , 08/17/2025 02:30:00 PM, [address] [place] [address], [place], [address], Progress Notes * Wiliam BRAGAOB: 2 (75 yo M)Acc No.[id number]:10/31/2024 Progress Notes Patient: Galileo Sarabjit ORTIZ Appointment Provider: Marita Rincon :1950 A ge:74 Y S ex:Male Date:10/31/2024 Address:[address] [place], [place] [phone] Pcp:ADELIA THOMAS Subjective: * Chief Complaints: * 1 . 6 month f/u. * Medical History: Objective: * Vitals: Assessment: Plan: * Treatment: * Images: * Electronic signature of Minesh Rincon PA-C on 07/06/2025 at 09:28 PM EST Sign off status: Pending * Appointment Provider: Marita Rincon Date: 0 10/31/2024 Generated for Gertrude salazar/Jonathan/Kristopher on: 1 09/06/2024 09:28 PM EST
--- NOTE | 2025-07-06 14:45 | HO.NEPHOV ---
Vital Signs 07/06/25 14:47 Height 5 ft 6 in Weight 239 lb 4 oz BMI 38.6 BP 158/110 H Blood Pressure Location Rt brachial Position Sitting Pulse 85 Pulse Source Pulse Oximeter Pulse Oximetry (%) 97 Oxygen Delivery Method Room Air Intake Visit Reasons: 6wk-LVM Executive Sales Assistant Required: No Accompanied by: Self / Same As Patient Allergies No Known Allergies Allergy (Verified 07/06/25 14:47) HPI Comments Details: Mr. Enriquez was seen in follow-up of his diabetic nephropathy. He has chronic kidney disease 5 now. He had been doing well after his CABG . His blood sugar control has been fair. His blood pressure is controlled. He claims to be taking NaHCO3 . He has no edema. His psoriasis is under good control. He denies chest pain, nausea vomiting, diarrhea, urinary symptoms or orthostatic symptoms. [facility] Medical History Secondary hyperparathyroidism Vitamin D deficiency Metabolic acidosis Proteinuria Diabetes mellitus with nephropathy Essential (primary) hypertension Chronic kidney disease Surgical History Hx of CABG Family History Maternal Grandmother Heart disease Social History Alcohol intake: current Patient Tobacco Use Status: Never used Tobacco Review of Systems Const All systems reviewed & are unremarkable except as noted in HPI and below Physical Exam Vital Signs: Last Vital Signs Pulse 85 07/06/25 14:47 BP 158/110 H 07/06/25 14:47 Pulse Ox 97 07/06/25 14:47 Oxygen Delivery Method Room Air 07/06/25 14:47 BMI result Body Mass Index 38.6 Const General: comfortable and no acute distress Orientation/consciousness: patient oriented x3 HEENT Head: Yes normocephalic Mouth: Normal oral and palatal mucosa present Eyes EOM: EOMs intact bilaterally Neck Neck: Yes supple Resp Auscultation: clear to auscultation bilaterally Cardio Jugular venous distension: no JVD Rate: regular rate GI Palpation (GI): Soft to palpation Auscultation: normal bowel sounds General: Yes no CVA tenderness Back/Spine/Pelvis Back: no CVA tenderness Skin General skin exam: no rashes or lesions noted Neuro General: patient oriented x3 and moves all extremities Extrem General: Yes no pedal edema Results Reviewed Nephrology Results: Sodium, (135-145) 140 mmol/L 01/12/25 Potassium, (3.3-5.1) 4.8 mmol/L 01/12/25 Chloride, (96-108) 111 mmol/L H 01/12/25 Carbon Dioxide, (22-29) 20 mmol/L L 01/12/25 BUN, (9-16) 39 mg/dL H 01/12/25 Creatinine, (0.5-1.4) 3.72 mg/dL H 01/12/25 Assessment & Plan Assessment & Plan (1) CKD stage 5 due to type 2 diabetes mellitus: Code(s): E11.22 - Type 2 diabetes mellitus with diabetic chronic kidney disease; N18.5 - Chronic kidney disease, stage 5 Category: Medical (2) Diabetes mellitus with nephropathy: Code(s): E11.21 - Type 2 diabetes mellitus with diabetic nephropathy Category: Medical (3) Proteinuria: Code(s): R80.9 - Proteinuria, unspecified Category: Medical Qualifiers: Proteinuria type: persistent Qualified Code(s): R80.1 - Persistent proteinuria, unspecified (4) Metabolic acidosis: Code(s): E87.20 - Acidosis, unspecified Category: Medical (5) Hyperkalemia: Code(s): E87.5 - Hyperkalemia Category: Medical Plan Stephan has diabetic nephropathy. He needs to lose weight. His blood pressure is well controlled. He can continue lasix 40 mg every other day. He needs to keep up with a low-sodium diet. C/W sodium bicarbonate 1300 mg tid. His Farxiga, ACEI are on hold. He should continue Kayexalate 30 Gram twice a week. He is on Vitamin D . He avoids nonsteroidal anti-inflammatories and maintain good hydration. I did not make any other medication changes today. Follow-up lab work ordered. [place] referral made and a 24 hour urine for cr cl ordered. Answered all questions Orders: Orders Electrolytes 6 Weeks E11.21 - Type 2 diabetes mellitus with diabetic nephropathy, E11.22 - Type 2 diabetes mellitus with diabetic chronic kidney disease, E87.20 - Acidosis, unspecified, E87.5 - Hyperkalemia, N18.5 - Chronic kidney disease, stage 5, R80.1 - Persistent proteinuria, unspecified Creatinine 6 Weeks E11.21 - Type 2 diabetes mellitus with diabetic nephropathy, E11.22 - Type 2 diabetes mellitus with diabetic chronic kidney disease, E87.20 - Acidosis, unspecified, E87.5 - Hyperkalemia, N18.5 - Chronic kidney disease, stage 5, R80.1 - Persistent proteinuria, unspecified Parathyroid Hormone Intact 6 Weeks E11.21 - Type 2 diabetes mellitus with diabetic nephropathy, E11.22 - Type 2 diabetes mellitus with diabetic chronic kidney disease, E87.20 - Acidosis, unspecified, E87.5 - Hyperkalemia, N18.5 - Chronic kidney disease, stage 5, R80.1 - Persistent proteinuria, unspecified Vitamin D 25-OH Total 6 Weeks E11.21 - Type 2 diabetes mellitus with diabetic nephropathy, E11.22 - Type 2 diabetes mellitus with diabetic chronic kidney disease, E87.20 - Acidosis, unspecified, E87.5 - Hyperkalemia, N18.5 - Chronic kidney disease, stage 5, R80.1 - Persistent proteinuria, unspecified Creatinine Clearance Urine 24U 6 Weeks E11.21 - Type 2 diabetes mellitus with diabetic nephropathy, E11.22 - Type 2 diabetes mellitus with diabetic chronic kidney disease, E87.20 - Acidosis, unspecified, E87.5 - Hyperkalemia, N18.5 - Chronic kidney disease, stage 5, R80.1 - Persistent proteinuria, unspecified Calcium 6 Weeks E11.21 - Type 2 diabetes mellitus with diabetic nephropathy, E11.22 - Type 2 diabetes mellitus with diabetic chronic kidney disease, E87.20 - Acidosis, unspecified, E87.5 - Hyperkalemia, N18.5 - Chronic kidney disease, stage 5, R80.1 - Persistent proteinuria, unspecified Blood Urea Nitrogen 6 Weeks E11.21 - Type 2 diabetes mellitus with diabetic nephropathy, E11.22 - Type 2 diabetes mellitus with diabetic chronic kidney disease, E87.20 - Acidosis, unspecified, E87.5 - Hyperkalemia, N18.5 - Chronic kidney disease, stage 5, R80.1 - Persistent proteinuria, unspecified Phosphorus 6 Weeks E11.21 - Type 2 diabetes mellitus with diabetic nephropathy, E11.22 - Type 2 diabetes mellitus with diabetic chronic kidney disease, E87.20 - Acidosis, unspecified, E87.5 - Hyperkalemia, N18.5 - Chronic kidney disease, stage 5, R80.1 - Persistent proteinuria, unspecified Referrals Transplant Surgery Referral E11.21 - Type 2 diabetes mellitus with diabetic nephropathy, E11.22 - Type 2 diabetes mellitus with diabetic chronic kidney disease, E87.20 - Acidosis, unspecified, E87.5 - Hyperkalemia, N18.5 - Chronic kidney disease, stage 5, R80.1 - Persistent proteinuria, unspecified Coding Level of Care Code Est Pt Level 4 (28788) Diagnoses CKD stage 5 due to type 2 diabetes mellitus E11.22; N18.5 Diabetes mellitus with nephropathy E11.21 Persistent proteinuria R80.1 Proteinuria type: persistent Metabolic acidosis E87.20 Hyperkalemia E87.5
[2025-07-06 14:47] VITALS: BP 158/110; PULSE 85; O2SAT 97; BMI 38.6
--- OUTSIDE RECORDS SUMMARY | 2025-07-06 21:28 | XMS_ITS | Clinical Summary ---
Author Organization [facility] Prior to 12/24/[address] [place] [id number] Care Team Providers Care Colors Custodian Name Role Phone Jesús Holder MD Primary Care Provider [phone] Allergies No known active allergies Medications Medication [...] - PCV) 2017 COVID-19 Vaccine (2 - 2024-2 6 season) 2025 10/19/2020 Influenza Vaccine (#1) 2025 RSV Adult > 60+ Yrs or Pregn ant (1 - 1-dose 75+ series) 2027 Hepatitis B Vaccines Aged Out No long er eligible based on patient's age to complete this topic RSV Ped < 20 months Aged Out No longe r eligible based on patient's age to complete this topic Care Teams Colors Custodian Relationship Specialty Start Date End Date Jesús Holder MD [address] [place] [address] PCP - General Family Medicine 08/02/15
--- OUTSIDE RECORDS SUMMARY | 2025-07-06 21:28 | XMS_ITS | Patient Health Record ---
Author Organization [facility] Address [address] [place] [address] Care Team Providers Care Wood Sash And Frame Carpenter Name Role Phone GERSONADELIA Cox Primary Care Provider Virgil Parsons Unavailable [phone] Anaya Rincon Unavailable [phone] Allergies No Known Allergies Results Component Value Reference Range Notes Hemoglobin [id number] Reviewed date:06/06/2025 09:21:11 AM Interpretation: Performing Lab:[facility], [address] [facility], Phone - [phone], Director - Zoraida Notes/Report: Hemoglobin A1c 5.9 4.8-5.6 % . Prediabetes: 5.7 - 6.4 Diabetes: >6.4 Glycemic control for adults with diabetes: <7.0 Lipid Panel-[id number] Reviewed date:06/06/2025 09:20:27 AM Interpretation: Performing Lab:[facility], [place] [facility], Phone - [phone], Director - Zoraida Notes/Report: Cholesterol, Total 206 100-199 mg/dL Triglycerides 335 0-149 mg/dL HDL Cholesterol 56 >39 mg/dL VLDL Cholesterol Rojelio 55 5-40 mg/dL LDL Chol Calc (NIH) 95 0-99 mg/dL Uric Acid-[id number] Reviewed date:03/20/2025 01:07:50 PM Interpretation: Performing Lab:Al[facility] Fritz [employer] [facility], Phone - [phone], Director - Zoraida Notes/Report: Uric Acid 6.0 3.8-8.4 mg/dL Therapeutic ta rget for gout patients: <6.0 Hemoglobin [id number] Reviewed date:03/20/2025 01:07:54 PM Interpretation: Performing Lab:[facility], [address] [place] [address], Phone - [phone], Director - Zoraida Notes/Report: Hemoglobin A1c 6.5 4.8-5.6 % . Prediabetes: 5.7 - 6.4 Diabetes: >6.4 Glycemic control for adults with diabetes: <7.0 Albumin/Creatinine Ratio,Uri [id number] Reviewed date:03/20/2025 01:07:58 PM Interpretation: Performing Lab:[facility], [address] [place] [address], Phone - [phone], Director - Reay Notes/Report: Creatinine, Urine 87.7 Not Estab. mg/dL Albumin, Urine 4485.8 Not Estab. ug/mL Results confirmed on dilution. Alb/Creat Ratio 5115 0-29 mg/g creat Normal: 0 - 29 Moderately increased: 30 - 300 Severely increased: >300 Lipid Panel-[id number] Reviewed date:03/20/2025 01:08:03 PM Interpretation: Performing Lab:[facility], [address] [place] [address], Phone - [phone], Director - Reay Notes/Report: Cholesterol, Total 198 100-199 mg/dL Triglycerides 406 0-149 mg/dL HDL Cholesterol 59 >39 mg/dL VLDL Cholesterol Rojelio 64 5-40 mg/dL LDL Chol Calc (NIH) 75 0-99 mg/dL Comp. Metabolic Panel ([id number] Reviewed date:03/20/2025 01:08:09 PM Interpretation: Performing Lab:[facility], [address] [place] [address], Phone - [phone], Director - Zoraida Notes/Report: Glucose 124 70-99 mg/dL BUN 52 [...] (SGPT) 26 0-44 IU/L Reason For Referral Reason DALE testing, spasm w / walking Please evaluate and treat Diagnosis 1 Muscle spasm of calf (M62.831) Referral Organization [facility] Referring Provider First Name Anaya Referring Provider Last Name Sergey Referred Provider Specialty Vascular Noe antoine General Notes Please call the ivelisse ent to schedule the appointment, Encounter jada Alicja Arthur 05/23/2025 04:15:05 PM > Referral Priority Routine Medications Medication SIG (Take, Route, Frequency, Duration) Notes Start Date End Date Status Carvedilol 25 MG TAKE 1 TABLET BY MOUTH TWICE A DAY; Duration: 90 Active Lantus SoloStar 100 UNIT/ML INJECT 10 UNITS UNDER THE SKIN DAILY; Duration: 90 days Active predniSONE 20 MG 1 tablet Orally Once a day; Duration: 7 days 09/20/2024 Not-Taking amLODIPine Besylate 10 MG TAKE 1 TABLET BY MOUTH EVERY DAY; Duration: 90 Active Albuterol Sulfate HFA 108 (90 Base) MCG/ACT 1 puff Inhalation every 4 hrs; Duration: 30 days 09/20/2024 Active HumaLOG KwikPen 100 UNIT/ML SLIDING SCALE MAX 20 UNITS THREE TIMES A DAY SUBCUTANEOUSLY; Duration: 25 Active Icosapent Ethyl 1 GM TAKE 2 CAPSULES BY MOUTH TWICE A DAY WITH MEALS; Duration: 90 Active Allopurinol 100 MG 1 tablet Orally Once a day; Duration: 90 days Active Atorvastatin Calcium 80 MG TAKE 1 TABLET BY MOUTH EVERY DAY; Duration: 90 Active Gemfibrozil 600 MG 1 tablet 30 minutes before morning and evening meals Orally Twice a day; Duration: 30 days triglycerides are really high and he is at risk for pancreatitis. We will monitor his liver functions and repeat his lipid panel in 6 to 12 weeks after taking the medication 12/30/2022 Not-Taking Dexcom G6 Transmitter - USE as DIRECTED; Duration: 90 days Active Farxiga 5 MG 1 tablet Orally Once a day Not-Taking amLODIPine Besylate 5 MG TAKE 1 TABLET BY MOUTH EVERY DAY FOR 90 DAYS; Duration: 90 Not-Taking Ozempic (0.25 or 0.5 MG/DOSE) 2 MG/1.5ML 0.25 mg Subcutaneous once a week; Duration: 30 days 01/18/2024 Not-Taking Lisinopril 2.5 MG 1 tablet Orally Once a day Not-Taking Aspirin Low Dose 81 MG TAKE 1 TABLET BY MOUTH EVERY DAY; Duration: 90 Active Accu-Chek Guide - Use to check blood sugar three times daily Dx: E08.40 3 times a day; Duration: 90 days Active Zolpidem Tartrate 10 MG 1 tablet at bedtime as needed Orally Once a day; Duration: 90 days 04/13/2025 Active Lokelma 10 GM 1 packet dissolved in water Orally Once a day; Duration: 30 day(s) 04/09/2022 Not-Taking BD Pen Needle Short U/F 31G X 8 MM as directed once a day; Duration: 30 days 07/19/2019 Active Ezetimibe 10 MG TAKE 1 TABLET BY MOUTH EVERY DAY; Duration: 90 Active Beisen G6 Sensor - REPLACE EVERY 10 DAYS; Duration: 30 days Patient can self pay. Active Vitamin D Active Sildenafil Citrate 20 MG 1 tablet Orally Once a day; Duration: 30 days As needed 01/04/2025 Active Sodium Bicarbonate 650 MG as directed Orally 04/09/2022 Active Blood Glucose Test - as directed to check blood sugars with Accucheck machine Dx: E11.8 In Vitro three times daily; Duration: 90 Active Immunizations Vaccine Route Administration Date Status [...] W/U Status Risk Notes Problem Tinea pedis (5164238) Tinea pedis (B35.3) Active confirmed Problem Diabetic neuropathy (947477037) Diabetes mellitus due to underlying condition with diabetic neuropathy, unspecified (E08.40) Active confirmed Problem Mixed hyperlipidemia (738873355) Mixed hyperlipidemia (E78.2) Active confirmed Problem Insomnia (572764302) Insomnia, unspecified (G47.00) Active confirmed Problem Hearing loss (68284628) Unspecified hearing loss, unspecified ear (H91.90) Active confirmed Problem Chronic kidney disease due to hypertension (632791249048479) Hypertensive chronic kidney disease with stage 1 through stage 4 chronic kidney disease, or unspecified chronic kidney disease (I12.9) Active confirmed Problem Coronary arteriosclerosis of coronary artery bypass graft (286359223) Atherosclerosis of coronary artery bypass graft(s) without angina pectoris (I25.810) Active confirmed Problem Cardiac arrhythmia (659193090) Cardiac arrhythmia, unspecified (I49.9) Active confirmed Problem Diverticular disease of colon (360513775) Diverticulosis of large intestine without perforation or abscess without bleeding (K57.30) Active confirmed Problem Chronic gouty arthritis (61279698) Chronic gout, unspecified, without tophus (tophi) (M1A.9XX0) Active confirmed Problem Pain in right foot (886272102386925) Pain in right foot (M79.671) Active confirmed Problem Chronic kidney disease stage 4 (057213472) Chronic kidney disease, stage 4 (severe) (N18.4) Active confirmed Problem Erectile dysfunction (disorder) (766946912) Male erectile dysfunction, unspecified (N52.9) Active confirmed Problem Snoring (40380496) Snoring (R06.83) Active conf irmed Problem Diarrhea (25631094) Diarrhea, unspecified (R19.7) Active confirmed Problem Eruption of skin (136775563) Rash and other nonspecific skin eruption (R21) Active confirmed Problem Adult health examination (692396593) Encounter for general adult medical examination without abnormal findings (Z00.00) Active confirmed Problem History and physical examination, follow-up (497115891) Encounter for follow-up examination after completed treatment for conditions other than malignant neoplasm (Z09) Active confirmed Problem History of poliomyelitis (726716330) Personal history of poliomyelitis (Z86.12) Active confirmed Problem Essential hypertension (71017443) Essential (primary) hypertension (I10) Active confirmed Problem Atherosclerotic heart disease of zuni coronary artery without angina pectoris (727131027069245) Coronary artery disease involving zuni coronary artery of zuni heart without angina pectoris (I25.10) Active confirmed Problem 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) (163354888) Type 2 diabetes mellitus with other diabetic arthropathy, without long-term current use of insulin (E11.618) Active confirmed Vital Signs Heart Rate 61 /min 06/13/2025 Temperature 98.3 degrees Fahrenheit 06/13/2025 Oximetry 95 % 06/13/2025 Blood pressure diastolic 84 mm Hg 06/13/2025 Height 66 in 06/13/2025 Blood pressure systolic 120 mm Hg 06/13/2025 Weight 240.8 lbs 06/13/2025 BMI 38.86 kg/m2 06/13/2025 Encounters Encounter Location Date Provider Diagnosis [address] [place] [address] 09/20/2024 Ghadeer Mazloum Cough R05.9 ; Impact ed cerumen of left ear H61.22 ; Type 2 diabetes mellitus with other diabetic arthropathy, without long-term current use of insulin E11.618 ; Chronic kidney disease, stage 4 (severe) N18.4 ; Mixed hyperlipidemia E78.2 and Essential (primary) hypertension I10 [address] [place] [address] 12/08/2024 ADELIA THOMAS Encounter for genera l adult medical examination without abnormal findings Z00.00 ; Atherosclerosis of coronary artery bypass graft(s) without angina pectoris I25.810 ; Diabetes mellitus due to underlying condition with diabetic neuropathy, unspecified E08.40 ; Essential (primary) hypertension I10 and Chronic gout, unspecified, without tophus (tophi) M1A.9XX0 [address] [place] [address] 04/13/2025 DELVALLE GUL Essential (primary) hypertension I10 ; Mixed hyperlipidemia E78.2 ; Diabetes mellitus due to underlying condition with diabetic neuropathy, unspecified E08.40 ; Insomnia, unspecified G47.00 ; Chronic gout, unspecified, without tophus (tophi) M1A.9XX0 ; Chronic kidney disease, stage 4 (severe) N18.4 and Hypertensive chronic kidney disease with stage 1 through stage 4 chronic kidney disease, or unspecified chronic kidney disease I12.[address] [place] [address] 05/23/2025 Ghadeer Benjiloum Muscle spasm of calf M62.831 ; Mixed hyperlipidemia E78.2 ; Diabetes mellitus due to underlying condition with diabetic neuropathy, unspecified E08.40 and Essential (primary) hypertension I10 [address] [place] [address] 06/13/2025 [place]am Diabetes mellitus du e to underlying condition with diabetic neuropathy, unspecified E08.40 ; Essential (primary) hypertension I10 and Coronary artery disease involving zuni coronary artery of zuni heart without angina pectoris I25.[address] [place] [address] 08/29/[address] [place] [address] 10/17/2024 DELVALLEASHLIE NIETOL Cough R05.[address] [place] [address] 11/22/2024 Ghadeer Mazloum [address] [place] [address] 12/08/2024 ADELIA THOMAS Encounter for screen ing for malignant neoplasm of colon Z12.[address] [place] [address] 01/04/[address] [place] [address] 01/04/2025 ADELIA THOMAS [facility] [address] [place] [address] 02/28/2025 ADELIA THOMAS Diabetes mellitus du e to underlying condition with diabetic neuropathy, unspecified E08.40 [facility] [address] [place] [address] 05/23/2025 ADELIA THOMAS [address] [place] [address] 05/24/2025 ADELIA THOMAS Diabetes mellitus du e to underlying condition with diabetic neuropathy, unspecified E08.[address] [address] 06/30/2025 Virgil Parsons Assessments Encounter Date Diagnosis (ICD Code) Assessment [...] has been coughing he has used Robitussin [id number] which improved his cough significantly. Physical exam [...] with diet modification. He has seen his supervisor sample preparation in the past 1 year. Foot care [...] has been coughing he has used Robitussin [id number] which improved his cough significantly. Physical exam [...] with diet modification. He has seen his supervisor sample preparation in the past 1 year. Foot care discussed. All questions were answered plan was discussed with the patient I have rendered the services for this patient under direct supervision of Dr. Thomas, who did not see the patient but was available upon request 12/08/2024 Atherosclerosis of coronary artery bypass graft(s) without angina pectoris (ICD-10 - I25.810) Stephan is 74 years old gentleman with insulin-dependent DM type II, hypertension, hyperlipidemia, CABG/coronary artery disease, chronic gout, chronic kidney disease stage IV, chronic insomnia is here today for annual physical. Plan is as follows. CABG/AD. He follows up with Dr. Thomas at [facility]. He is stable and he is [...] Foot exam is normal. He has seen supervisor sample preparation. He is on statins. Chronic kidney disease stage IV. He has mild pedal edema and he follows up with Dr. Whipple. Hypertension/hyper lipidemia. Blood pressure well controlled on amlodipine 10 [...] He follows up with Dr. Thomas at [facility]. He is stable and he is [...] Foot exam is normal. He has seen supervisor sample preparation. He is on statins. Chronic kidney disease stage IV. He has mild pedal edema and he follows up with Dr. Whipple. Hypertension/hyper lipidemia. Blood pressure well controlled on amlodipine 10 [...] malignant neoplasm of colon (ICD-10 - Z12.11) 04/13/2025 Mixed hyperlipidemia (ICD-10 - E78.2) Mr. Enriquez is a 74-year-old gentleman with CAD previous OR, hypertension, hyperlipidemia, insomnia and on Ambien and DM2 with nephropathy, chronic kidney disease stage 4 and he follows up with Dr. Whipple, is here today for follow-up. Hypertension. Blood pressure reasonably controlled on current regimen of amlodipine 10 mg daily, carvedilol 25 mg 1 tablet twice a day. Mixed hyperlipidemia. He has significant hypertriglyceridem ia. He is on Zetia 10 mg daily and also on Vascepa 1 g twice a day along with atorvastatin 80 mg daily. Dietary restrictions discussed and recheck in 6 months. 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 A1c is stable. He is on Lantus 10 units and he is also on sliding scale. Gout. Stable on allopurinol 100 mg daily. Chronic kidney disease stage IV. He follows up with Dr. Whipple and he does not appear to be in volume overload. Avoid NSAIDs. Chronic insomnia. He is on Ambien 10 mg daily and it is helping with sleep and time sleepiness or grogginess. 04/13/2025 Essential (primary) hypertension (ICD-10 - I10) Mr. Enriquez is a 74-year-old gentleman with CAD previous OR, hypertension, hyperlipidemia, insomnia and on Ambien and DM2 with nephropathy, chronic kidney disease stage 4 and he follows up with Dr. Whipple, is here today for follow-up. Hypertension. Blood pressure reasonably controlled on current regimen of amlodipine 10 mg daily, carvedilol 25 mg 1 tablet twice a day. Mixed hyperlipidemia. He has significant hypertriglyceridem ia. He is on Zetia 10 mg daily and also on Vascepa 1 g twice a day along with atorvastatin 80 mg daily. Dietary restrictions discussed and recheck in 6 months. 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 A1c is stable. He is on Lantus 10 units and he is also on sliding scale. Gout. Stable on allopurinol 100 mg daily. Chronic kidney disease stage IV. He follows up with Dr. Whipple and he does not appear to be in volume overload. Avoid NSAIDs. Chronic insomnia. He is on Ambien 10 mg daily and it is helping with sleep and time sleepiness or grogginess. 05/23/2025 Muscle spasm of calf (ICD-10 - M62.831) Mr. Enriquez is a 75-year-old gentleman with CAD previous OR, hypertension, hyperlipidemia, insomnia and on Ambien and DM2 with nephropathy, chronic kidney disease stage 4 and he follows up with Dr. Whipple, is here today for Physical therapy referral for muscle spasm. Plan as follows. Muscle spasm of the calf. He admits to claudication with activity, he has tried stretching prior to activity however no improvements. Physical examination as mentioned above with moderate venous stasis dermatitis, bilateral palpable 2+ dorsalis pedis with diminished posterior tibialis, no dependent rubor, feet are warm to touch bilateral. Given his history of type 2 diabetes and hypertension with symptoms of claudication L0 proceed with referring patient to vascular surgeon for DALE testing to rule out pad. I will also refer patient to physical therapy for gait stability and strengthening exercises. Hypertension. Blood pressure is elevated in the office today, he did not take his medication before his appointment. Continue on current regimen of amlodipine 10 mg daily, carvedilol 25 mg 1 tablet twice a day. We will recheck blood pressure In 3 weeks. Mixed hyperlipidemia. He has significant hypertriglyceridem ia. He is on Zetia 10 mg daily and also on Vascepa 1 g twice a day along with atorvastatin 80 mg daily. Dietary restrictions discussed. 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 A1c is stable. He is on Lantus 10 units and he is also on sliding scale. Check A1c Gout. Stable on allopurinol 100 mg daily. Chronic kidney disease stage IV. He follows up with Dr. Whipple and he does not appear to be in volume overload. Avoid NSAIDs. General concerns have been discussed I have rendered the services for this patient under direct supervision of Dr. Thomas, who did not see the patient but was available upon request Content of this note has been dictated using voice recognition software. Despite multiple revisions, Errors may persist 06/13/2025 Diabetes mellitus due to underlying condition with diabetic neuropathy, unspecified (ICD-10 - E08.40) 75 -year-old gentleman with CAD previous OR, hypertension, hyperlipidemia, insomnia and on Ambien and DM2 with nephropathy, chronic kidney disease stage 4 and he follows up with Dr. Whipple, is here today for follow-up. hypertension well controlled blood pressure today is 120/82 patient went to vascular surgery appointment where his blood pressure was elevated and was sent for follow-up. He has been taking Coreg 25 mg twice a day and also on amlodipine 10 mg daily blood pressure is well controlled most likely this was stress related as patient stated that he was stuck in the traffic and was nervous finding the building. Lab work was reviewed from February 2025 which showed elevated creatinine of 4.2 patient baseline is around 3.5 he states that he recently saw Dr. Swanson and his numbers were at baseline. Mixed hyperlipidemia. He has significant hypertriglyceridem ia. He is on Zetia 10 mg daily and also on Vascepa 1 g twice a day along with atorvastatin 80 mg daily. 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 A1c is stable. And much improved today it is 5.9 He is on Lantus 10 units and he is also on sliding scale. Gout. Stable on allopurinol 100 mg daily. 06/13/2025 Essential (primary) hypertension (ICD-10 - I10) 75 -year-old gentleman with CAD previous OR, hypertension, hyperlipidemia, insomnia and on Ambien and DM2 with nephropathy, chronic kidney disease stage 4 and he follows up with Dr. Whipple, is here today for follow-up. hypertension well controlled blood pressure today is 120/82 patient went to vascular surgery appointment where his blood pressure was elevated and was sent for follow-up. He has been taking Coreg 25 mg twice a day and also on amlodipine 10 mg daily blood pressure is well controlled most likely this was stress related as patient stated that he was stuck in the traffic and was nervous finding the building. Lab work was reviewed from February 2025 which showed elevated creatinine of 4.2 patient baseline is around 3.5 he states that he recently saw Dr. Swanson and his numbers were at baseline. Mixed hyperlipidemia. He has significant hypertriglyceridem ia. He is on Zetia 10 mg daily and also on Vascepa 1 g twice a day along with atorvastatin 80 mg daily. 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 A1c is stable. And much improved today it is 5.9 He is on Lantus 10 units and he is also on sliding scale. Gout. Stable on allopurinol 100 mg daily. 10/17/2024 Cough (ICD-10 - R05.9) 06/13/2025 Coronary artery disease involving zuni coronary artery of zuni heart without angina pectoris (ICD-10 - I25.10) 75 -year-old gentleman with CAD previous OR, hypertension, hyperlipidemia, insomnia and on Ambien and DM2 with nephropathy, chronic kidney disease stage 4 and he follows up with Dr. Whipple, is here today for follow-up. hypertension well controlled blood pressure today is 120/82 patient went to vascular surgery appointment where his blood pressure was elevated and was sent for follow-up. He has been taking Coreg 25 mg twice a day and also on amlodipine 10 mg daily blood pressure is well controlled most likely this was stress related as patient stated that he was stuck in the traffic and was nervous finding the building. Lab work was reviewed from February 2025 which showed elevated creatinine of 4.2 patient baseline is around 3.5 he states that he recently saw Dr. Swanson and his numbers were at baseline. Mixed hyperlipidemia. He has significant hypertriglyceridem ia. He is on Zetia 10 mg daily and also on Vascepa 1 g twice a day along with atorvastatin 80 mg daily. 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 A1c is stable. And much improved today it is 5.9 He is on Lantus 10 units and he is also on sliding scale. Gout. Stable on allopurinol 100 mg daily. 05/23/2025 Mixed hyperlipidemia (ICD-10 - E78.2) Mr. Enriquez is a 75-year-old gentleman with CAD previous OR, hypertension, hyperlipidemia, insomnia and on Ambien and DM2 with nephropathy, chronic kidney disease stage 4 and he follows up with Dr. Whipple, is here today for Physical therapy referral for muscle spasm. Plan as follows. Muscle spasm of the calf. He admits to claudication with activity, he has tried stretching prior to activity however no improvements. Physical examination as mentioned above with moderate venous stasis dermatitis, bilateral palpable 2+ dorsalis pedis with diminished posterior tibialis, no dependent rubor, feet are warm to touch bilateral. Given his history of type 2 diabetes and hypertension with symptoms of claudication L0 proceed with referring patient to vascular surgeon for DALE testing to rule out pad. I will also refer patient to physical therapy for gait stability and strengthening exercises. Hypertension. Blood pressure is elevated in the office today, he did not take his medication before his appointment. Continue on current regimen of amlodipine 10 mg daily, carvedilol 25 mg 1 tablet twice a day. We will recheck blood pressure In 3 weeks. Mixed hyperlipidemia. He has significant hypertriglyceridem ia. He is on Zetia 10 mg daily and also on Vascepa 1 g twice a day along with atorvastatin 80 mg daily. Dietary restrictions discussed. 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 A1c is stable. He is on Lantus 10 units and he is also on sliding scale. Check A1c Gout. Stable on allopurinol 100 mg daily. Chronic kidney disease stage IV. He follows up with Dr. Whipple and he does not appear to be in volume overload. Avoid NSAIDs. General concerns have been discussed I have rendered the services for this patient under direct supervision of Dr. Thomas, who did not see the patient but was available upon request Content of this note has been dictated using voice recognition software. Despite multiple revisions, Errors may persist 05/24/2025 Diabetes mellitus due to underlying condition with diabetic neuropathy, unspecified (ICD-10 - E08.40) 02/28/2025 Diabetes mellitus due to underlying condition with diabetic neuropathy, unspecified (ICD-10 - E08.40) 04/13/2025 Diabetes mellitus due to underlying condition with diabetic neuropathy, unspecified (ICD-10 - E08.40) Mr. Enriquez is a 74-year-old gentleman with CAD previous OR, hypertension, hyperlipidemia, insomnia and on Ambien and DM2 with nephropathy, chronic kidney disease stage 4 and he follows up with Dr. Whipple, is here today for follow-up. Hypertension. Blood pressure reasonably controlled on current regimen of amlodipine 10 mg daily, carvedilol 25 mg 1 tablet twice a day. Mixed hyperlipidemia. He has significant hypertriglyceridem ia. He is on Zetia 10 mg daily and also on Vascepa 1 g twice a day along with atorvastatin 80 mg daily. Dietary restrictions discussed and recheck in 6 months. 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 A1c is stable. He is on Lantus 10 units and he is also on sliding scale. Gout. Stable on allopurinol 100 mg daily. Chronic kidney disease stage IV. He follows up with Dr. Whipple and he does not appear to be in volume overload. Avoid NSAIDs. Chronic insomnia. He is on Ambien 10 mg daily and it is helping with sleep and time sleepiness or grogginess. 09/20/2024 Type 2 diabetes mellitus with other [...] has been coughing he has used Robitussin [id number] which improved his cough significantly. Physical exam [...] with diet modification. He has seen his supervisor sample preparation in the past 1 year. Foot care discussed. All questions were answered plan was discussed with the patient I have rendered the services for this patient under direct supervision of Dr. Thomas, who did not see the patient but was available upon request 12/08/2024 Diabetes mellitus due to underlying condition with diabetic neuropathy, unspecified (ICD-10 - E08.40) Stephan is 74 years old gentleman with insulin-dependent DM type II, hypertension, hyperlipidemia, CABG/coronary artery disease, chronic gout, chronic kidney disease stage IV, chronic insomnia is here today for annual physical. Plan is as follows. CABG/AD. He follows up with Dr. Thomas at [facility]. He is stable and he is [...] Foot exam is normal. He has seen supervisor sample preparation. He is on statins. Chronic kidney disease stage IV. He has mild pedal edema and he follows up with Dr. Whipple. Hypertension/hyper lipidemia. Blood pressure well controlled on amlodipine 10 [...] and his is his healthcare proxy. 09/20/2024 Chronic kidney disease, stage 4 (severe) [...] has been coughing he has used Robitussin [id number] which improved his cough significantly. Physical exam [...] with diet modification. He has seen his supervisor sample preparation in the past 1 year. Foot care [...] He follows up with Dr. Thomas at [facility]. He is stable and he is [...] Foot exam is normal. He has seen supervisor sample preparation. He is on statins. Chronic kidney disease stage IV. He has mild pedal edema and he follows up with Dr. Whipple. Hypertension/hyper lipidemia. Blood pressure well controlled on amlodipine 10 [...] code and his is his healthcare proxy. 04/13/2025 Insomnia, unspecified (ICD-10 - G47.00) Mr. Enriquez is a 74-year-old gentleman with CAD previous OR, hypertension, hyperlipidemia, insomnia and on Ambien and DM2 with nephropathy, chronic kidney disease stage 4 and he follows up with Dr. Whipple, is here today for follow-up. Hypertension. Blood pressure reasonably controlled on current regimen of amlodipine 10 mg daily, carvedilol 25 mg 1 tablet twice a day. Mixed hyperlipidemia. He has significant hypertriglyceridem ia. He is on Zetia 10 mg daily and also on Vascepa 1 g twice a day along with atorvastatin 80 mg daily. Dietary restrictions discussed and recheck in 6 months. 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 A1c is stable. He is on Lantus 10 units and he is also on sliding scale. Gout. Stable on allopurinol 100 mg daily. Chronic kidney disease stage IV. He follows up with Dr. Whipple and he does not appear to be in volume overload. Avoid NSAIDs. Chronic insomnia. He is on Ambien 10 mg daily and it is helping with sleep and time sleepiness or grogginess. 05/23/2025 Diabetes mellitus due to underlying condition with diabetic neuropathy, unspecified (ICD-10 - E08.40) Mr. Enriquez is a 75-year-old gentleman with CAD previous OR, hypertension, hyperlipidemia, insomnia and on Ambien and DM2 with nephropathy, chronic kidney disease stage 4 and he follows up with Dr. Whipple, is here today for Physical therapy referral for muscle spasm. Plan as follows. Muscle spasm of the calf. He admits to claudication with activity, he has tried stretching prior to activity however no improvements. Physical examination as mentioned above with moderate venous stasis dermatitis, bilateral palpable 2+ dorsalis pedis with diminished posterior tibialis, no dependent rubor, feet are warm to touch bilateral. Given his history of type 2 diabetes and hypertension with symptoms of claudication L0 proceed with referring patient to vascular surgeon for DALE testing to rule out pad. I will also refer patient to physical therapy for gait stability and strengthening exercises. Hypertension. Blood pressure is elevated in the office today, he did not take his medication before his appointment. Continue on current regimen of amlodipine 10 mg daily, carvedilol 25 mg 1 tablet twice a day. We will recheck blood pressure In 3 weeks. Mixed hyperlipidemia. He has significant hypertriglyceridem ia. He is on Zetia 10 mg daily and also on Vascepa 1 g twice a day along with atorvastatin 80 mg daily. Dietary restrictions discussed. 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 A1c is stable. He is on Lantus 10 units and he is also on sliding scale. Check A1c Gout. Stable on allopurinol 100 mg daily. Chronic kidney disease stage IV. He follows up with Dr. Whipple and he does not appear to be in volume overload. Avoid NSAIDs. General concerns have been discussed I have rendered the services for this patient under direct supervision of Dr. Thomas, who did not see the patient but was available upon request Content of this note has been dictated using voice recognition software. Despite multiple revisions, Errors may persist 05/23/2025 Essential (primary) hypertension (ICD-10 - I10) Mr. Enriquez is a 75-year-old gentleman with CAD previous OR, hypertension, hyperlipidemia, insomnia and on Ambien and DM2 with nephropathy, chronic kidney disease stage 4 and he follows up with Dr. Whipple, is here today for Physical therapy referral for muscle spasm. Plan as follows. Muscle spasm of the calf. He admits to claudication with activity, he has tried stretching prior to activity however no improvements. Physical examination as mentioned above with moderate venous stasis dermatitis, bilateral palpable 2+ dorsalis pedis with diminished posterior tibialis, no dependent rubor, feet are warm to touch bilateral. Given his history of type 2 diabetes and hypertension with symptoms of claudication L0 proceed with referring patient to vascular surgeon for DALE testing to rule out pad. I will also refer patient to physical therapy for gait stability and strengthening exercises. Hypertension. Blood pressure is elevated in the office today, he did not take his medication before his appointment. Continue on current regimen of amlodipine 10 mg daily, carvedilol 25 mg 1 tablet twice a day. We will recheck blood pressure In 3 weeks. Mixed hyperlipidemia. He has significant hypertriglyceridem ia. He is on Zetia 10 mg daily and also on Vascepa 1 g twice a day along with atorvastatin 80 mg daily. Dietary restrictions discussed. 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 A1c is stable. He is on Lantus 10 units and he is also on sliding scale. Check A1c Gout. Stable on allopurinol 100 mg daily. Chronic kidney disease stage IV. He follows up with Dr. Whipple and he does not appear to be in volume overload. Avoid NSAIDs. General concerns have been discussed I have rendered the services for this patient under direct supervision of Dr. Thomas, who did not see the patient but was available upon request Content of this note has been dictated using voice recognition software. Despite multiple revisions, Errors may persist 04/13/2025 Chronic gout, unspecified, without tophus (tophi) (ICD-10 - M1A.9XX0) Mr. Enriquez is a 74-year-old gentleman with CAD previous OR, hypertension, hyperlipidemia, insomnia and on Ambien and DM2 with nephropathy, chronic kidney disease stage 4 and he follows up with Dr. Whipple, is here today for follow-up. Hypertension. Blood pressure reasonably controlled on current regimen of amlodipine 10 mg daily, carvedilol 25 mg 1 tablet twice a day. Mixed hyperlipidemia. He has significant hypertriglyceridem ia. He is on Zetia 10 mg daily and also on Vascepa 1 g twice a day along with atorvastatin 80 mg daily. Dietary restrictions discussed and recheck in 6 months. 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 A1c is stable. He is on Lantus 10 units and he is also on sliding scale. Gout. Stable on allopurinol 100 mg daily. Chronic kidney disease stage IV. He follows up with Dr. Whipple and he does not appear to be in volume overload. Avoid NSAIDs. Chronic insomnia. He is on Ambien 10 mg daily and it is helping with sleep and time sleepiness or grogginess. 12/08/2024 Chronic gout, unspecified, without tophus (tophi) (ICD-10 - M1A.9XX0) Stephan is 74 years old gentleman with insulin-dependent DM type II, hypertension, hyperlipidemia, CABG/coronary artery disease, chronic gout, chronic kidney disease stage IV, chronic insomnia is here today for annual physical. Plan is as follows. CABG/AD. He follows up with Dr. Thomas at [facility]. He is stable and he is [...] Foot exam is normal. He has seen supervisor sample preparation. He is on statins. Chronic kidney disease stage IV. He has mild pedal edema and he follows up with Dr. Whipple. Hypertension/hyper lipidemia. Blood pressure well controlled on amlodipine 10 [...] has been coughing he has used Robitussin [id number] which improved his cough significantly. Physical exam [...] with diet modification. He has seen his supervisor sample preparation in the past 1 year. Foot care [...] has been coughing he has used Robitussin [id number] which improved his cough significantly. Physical exam [...] with diet modification. He has seen his supervisor sample preparation in the past 1 year. Foot care discussed. All questions were answered plan was discussed with the patient I have rendered the services for this patient under direct supervision of Dr. Thomas, who did not see the patient but was available upon request 04/13/2025 Chronic kidney disease, stage 4 (severe) (ICD-10 - N18.4) Mr. Enriquez is a 74-year-old gentleman with CAD previous OR, hypertension, hyperlipidemia, insomnia and on Ambien and DM2 with nephropathy, chronic kidney disease stage 4 and he follows up with Dr. Whipple, is here today for follow-up. Hypertension. Blood pressure reasonably controlled on current regimen of amlodipine 10 mg daily, carvedilol 25 mg 1 tablet twice a day. Mixed hyperlipidemia. He has significant hypertriglyceridem ia. He is on Zetia 10 mg daily and also on Vascepa 1 g twice a day along with atorvastatin 80 mg daily. Dietary restrictions discussed and recheck in 6 months. 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 A1c is stable. He is on Lantus 10 units and he is also on sliding scale. Gout. Stable on allopurinol 100 mg daily. Chronic kidney disease stage IV. He follows up with Dr. Whipple and he does not appear to be in volume overload. Avoid NSAIDs. Chronic insomnia. He is on Ambien 10 mg daily and it is helping with sleep and time sleepiness or grogginess. 04/13/2025 Hypertensive chronic kidney disease with stage 1 through stage 4 chronic kidney disease, or unspecified chronic kidney disease (ICD-10 - I12.9) Mr. Enriquez is a 74-year-old gentleman with CAD previous OR, hypertension, hyperlipidemia, insomnia and on Ambien and DM2 with nephropathy, chronic kidney disease stage 4 and he follows up with Dr. Whipple, is here today for follow-up. Hypertension. Blood pressure reasonably controlled on current regimen of amlodipine 10 mg daily, carvedilol 25 mg 1 tablet twice a day. Mixed hyperlipidemia. He has significant hypertriglyceridem ia. He is on Zetia 10 mg daily and also on Vascepa 1 g twice a day along with atorvastatin 80 mg daily. Dietary restrictions discussed and recheck in 6 months. 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 A1c is stable. He is on Lantus 10 units and he is also on sliding scale. Gout. Stable on allopurinol 100 mg daily. Chronic kidney disease stage IV. He follows up with Dr. Whipple and he does not appear to be in volume overload. Avoid NSAIDs. Chronic insomnia. He is on Ambien 10 mg daily and it is helping with sleep and time sleepiness or grogginess. Plan Of Treatment Pending Test Test Name Order Date HEMOGLOBIN A1C 04/17/2022 HEMOGLOBIN A1C WITH EST GLUCOSE 10/10/19 LIPID PANEL 04/21/2022 POTASSIUM 10/09/2022 Cologuard 12/08/2024 Next Appt Details Provider Name:ADELIA THOMAS , 08/17/2025 02:30:00 PM, [address] [place] [address], [phone], Insurance Providers Payer Name Payer Address Payer Phone Subscriber Number Group Number Insured Name Patient Relationship to Insured Coverage Start Date Coverage End Date Medicare [address] [place] [phone] [id number] ZoeSarabjit Self - patient is the insured [id number] [address] [place] [phone] [id number] Sarabjit Enriquez Self - patient is the insured Medical (General) History Medical History History ICD Code hypertension, benign hyperlipidemia insomnia Gout type II diabetes 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 Jefferson at [facility] in Apr Lyme's disease Low Back Pain [facility]-Dr. Whipple Hospitalization History Reason Date(Month/Year)
--- OUTSIDE RECORDS SUMMARY | 2025-07-06 21:28 | XMS_ITS | Clinical Summary ---
Author Organization [facility] Address [address] [place] [address] Care Team Providers Care Stationary Engineer Name Role Phone Andrez Reyes MD Primary Care Provider Medical History Medical History Date Comments HTN [...] 2002 Zoster Vaccines (1 of 2) 2002 Depression Screening 07/27/2024 COVID-19 Vaccine (2 - 2024- season) 2025 10/19/2020 Influenza Vaccine (#1) 2025 2, 05/14/2021, [...] age to complete this topic Care Teams Stationary Engineer Relationship Specialty Start Date End Date Andrez Reyes MD [address] [place] [id number] PCP - General Internal Medicine 02/04/19
--- OUTSIDE RECORDS SUMMARY | 2025-07-06 21:29 | XMS_ITS | Clinical Summary ---
Author Organization [facility] Address [address] [place] [id number] Care Team Providers Care Hook Loader Name Role Phone Unavailable Primary Care Provider [...] of 2) 2002 COVID-19 Vaccine ( - 2024-2 6 season) 2025 RSV Vaccine 50 years and old er and Patients (1 - 1-dose 75+ series) 2027 Hepatitis B Vaccines Aged Out No long er eligible based on patient's age to complete this topic
== END 2025-07-06 15:15 | disposition home or self-care (01) ==
LOC: HO.HKAS 14:00
PROVIDERS: PCP Hospitalist; Visit Provider Internal Medicine Nephrology
DX: E11.22 Type 2 diabetes mellitus with diabetic chronic kidney disease (principal); N18.5 Chronic kidney disease, stage 5; E11.21 Type 2 diabetes mellitus with diabetic nephropathy; R80.1 Persistent proteinuria, unspecified; E87.20 Acidosis, unspecified; E87.5 Hyperkalemia
CPT/HCPCS: 99214